=== PATIENT | male | born 1970 | race American Indian/Alaskan Native ===

== ENCOUNTER 2018-06-10 07:47 | Inpatient (IN) | payer OTHER ==
[2018-06-10] MEDS ORDERED: ASPIRIN PO ONE (07:59)
[2018-06-10] MEDS ORDERED: CATAPRES ONE (08:05)
[2018-06-10] MEDS ORDERED: CATAPRES PO ONE (08:14)
[2018-06-10 08:24] LABS: Basophils # (Auto) 0.1 K/mm3 (0.0-0.1); Basophils % (Auto) 0.9 % (0.0-1.8); Eosinophils # (Auto) 0.3 K/mm3 (0.0-0.4); Eosinophils % (Auto) 2.5 % (0.0-4.3); Hematocrit 47.8 % (35.5-45.6); Hemoglobin 16.2 gm/dl (11.8-15.2); Lymphocytes # (Auto) 1.5 K/mm3 (1.2-5.4); Lymphocytes % (Auto) 13.3 % (13.4-35.0); Mean Corpuscular HGB Conc 34 % (32-34); Mean Corpuscular Hemoglobin 32 pg (28-32); Mean Corpuscular Volume 93 fl (84-94); Monocytes # (Auto) 0.5 K/mm3 (0.0-0.8); Monocytes % (Auto) 4.7 % (0.0-7.3); Platelet Count 234 K/mm3 (140-440); Red Blood Count 5.15 M/mm3 (3.65-5.03); Red Cell Distribution Width 14.1 % (13.2-15.2)
[2018-06-10 08:32] LABS: Calcium 9.3 mg/dL (8.4-10.2)
[2018-06-10 08:34] LABS: Alanine Aminotransferase 10 units/L (7-56); Albumin 3.9 g/dL (3.9-5)
[2018-06-10 08:41] LABS: Bilirubin,Direct < 0.2 mg/dL (0-0.2)
[2018-06-10 09:41] LABS: Chol/HDL Ratio 3.48 %
--- NOTE | 2018-06-10 09:43 | Emergency Department Report ---
HPI - General Chief Complaint: Abdominal Pain Time Seen by Provider: 06/10/18 09:27 - HPI HPI: 47-year-old male presents to the emergency department with a complaint of elevated blood pressure, shortness of breath, increased urinary frequency. The patient also says that intermittently he will get a sharp pain in the lower right flank. He denies any fever, chest pain, back pain nausea, vomiting, hematuria, dysuria. The patient does present with extremely elevated blood pressure. He has been out of his medications for at least the past 5 weeks since he lost his medical benefits. Patient says that he was on lisinopril but "it is not working." The shortness of breath worsens with exertion but does not necessarily worsen when lying flat. He denies any tobacco or illicit drug use or abuse. He has not taken anything for her symptoms prior to presentation. No recent travel or sick contacts at home. He does not have a primary care physician. ED Past Medical Hx - Past Medical History Hx Hypertension: Yes Hx Congestive Heart Failure: No Hx Diabetes: Yes Hx Asthma: No Hx COPD: No Hx HIV: No - Surgical History Past Surgical History?: No - Social History Smoking Status: Never Smoker Substance Use Type: None - Medications Home Medications: Home Medications Medication Instructions Recorded Confirmed Last Taken Type Aspirin [Aspirin BABY CHEW TAB] 81 mg PO QDAY #30 tab.chew 08/17/14 10/24/16 Rx Metoprolol [Lopressor TAB] 100 mg PO BID #60 tablet 10/24/16 Unknown Rx amLODIPine [Norvasc] 10 mg PO QDAY #30 tablet 10/24/16 Unknown Rx cloNIDine [Catapres] 0.1 mg PO Q12HR #60 tablet 10/24/16 Unknown Rx ED Review of Systems ROS: Stated complaint: FLANK PAIN Other details as noted in HPI Comment: All other systems reviewed and negative Constitutional: denies: chills, fever Eyes: denies: eye pain, eye discharge, vision change ENT: denies: ear pain, throat pain Respiratory: shortness of breath, SOB with exertion. denies: cough Cardiovascular: denies: chest pain, edema Gastrointestinal: abdominal pain (lower right flank). denies: nausea, vomiting Genitourinary: frequency. denies: dysuria, hematuria Musculoskeletal: denies: back pain, joint swelling, arthralgia Skin: denies: rash, lesions Neurological: denies: headache, weakness, paresthesias Physical Exam - Physical Exam Vital Signs: Vital Signs 06/10/18 06/10/18 06/10/18 07:56 08:00 09:20 Temperature 99.3 F Pulse Rate 114 H Respiratory 16 16 Rate Blood Pressure 234/172 Blood Pressure 231/160 245/185 [Right] O2 Sat by Pulse 99 99 Oximetry Physical Exam: GENERAL: The patient is well-developed well-nourished. HENT: Normocephalic. Atraumatic. Patient has moist mucous membranes. EYES: Extraocular motions are intact. Pupils equal reactive to light bilaterally. NECK: Supple. Trachea is midline. CHEST/LUNGS: Clear to auscultation. There is no respiratory distress noted. HEART/CARDIOVASCULAR: Regular. There is mild tachycardia. There is no murmur. ABDOMEN: Abdomen is soft, nontender. Patient has normal bowel sounds. There is no abdominal distention. SKIN: Skin is warm and dry. NEURO: The patient is awake, alert, and oriented. The patient is cooperative. The patient has no focal neurologic deficits. The patient has normal speech. MUSCULOSKELETAL: There is no tenderness or deformity. There is no limitation range of motion. There is no evidence of acute injury. ED Course Vital Signs 06/10/18 06/10/18 06/10/18 07:56 08:00 09:20 Temperature 99.3 F Pulse Rate 114 H Respiratory 16 16 Rate Blood Pressure 234/172 Blood Pressure 231/160 245/185 [Right] O2 Sat by Pulse 99 99 Oximetry ED Medical Decision Making - Lab Data Result diagrams: 06/10/18 08:07 06/10/18 08:07 - EKG Data -: EKG Interpreted by Me EKG shows normal: sinus rhythm, axis (left axis deviation), intervals (slightly prolonged QTC), QRS complexes (left anterior fascicular block, RVH), ST-T waves Rate: tachycardia (112 bpm) - EKG Data When compared to previous EKG there are: previous EKG unavailable Interpretation: other (sinus tachycardia, left anterior fascicular block, slightly prolonged QTC, RVH) - Radiology Data Radiology results: report reviewed, image reviewed interpreted by me: Chest x-ray shows some pulmonary vascular congestion and mild cardiomegaly. Abdominal x-ray shows some nonobstructive nonspecific bowel gas. EXAM: CT ABDOMEN PELVIS WO CON HISTORY: flank pain, hematuria TECHNIQUE: CT of the abdomen and pelvis was performed without intravenous contrast. Reconstructions were included in the coronal and sagittal planes. PRIORS: None. FINDINGS: Lower thorax: There are small bilateral pleural effusions with adjacent atelectasis. Interlobular septal thickening is seen in the lung bases. Multi chamber cardiac enlargement is seen. Liver: The liver is normal in attenuation. No intrahepatic biliary duct dilation. No focal hepatic lesions. Gallbladder/ biliary system: No cholelithiasis. The common bile duct appears nondilated. Spleen: No splenic lesions are seen. Pancreas: No pancreatic lesions are seen. No pancreatic duct dilation. Kidneys: No renal masses, cysts or hydronephrosis. Bilateral nonobstructing renal calculi are seen. The calculus on the right is present in the inferior pole measuring 1 centimeter. The calculus on the left is present in the inferior pole measuring 1.5 centimeters. Adrenal glands: No adrenal masses. Vasculature: The abdominal aorta is nondilated. Lymph nodes: Prominent sharda hepatis region lymph nodes are seen. Bowel, mesentery, peritoneum: No bowel obstruction. No free fluid or free air. The tip of the appendix is mildly prominent in size measuring up to 7 millimeters. No surrounding inflammation is seen. 6 millimeter appendicolith is seen within the midportion of the appendix. No colonic diverticulosis. No bowel wall thickening. Urinary bladder: No filling defects are seen. Pelvis: The prostate gland is enlarged. Abdominal wall: There is a small fat containing umbilical hernia. Bones: No acute or chronic osseous finding. IMPRESSION: 1. Large bilateral nonobstructing renal calculi. 2. Mildly prominent size of the tip of the appendix without surrounding inflammation, unlikely acute appendicitis. 3. Small bilateral pleural effusions with bilateral pulmonary edema. 4. Multi chamber cardiac enlargement. 5. Prominent sharda hepatis lymph nodes are likely reactive. 6. Mild prostatic hypertrophy. Transcribed By: MG Dictated By: BRITTANY PERKINS MD Electronically Authenticated By: BRITTANY PERKINS MD Signed Date/Time: 06/10/18 0044 - Medical Decision Making Patient presents with shortness of breath, intermittent right lower flank pains and some uncontrolled blood pressure. Patient came in with severely elevated blood pressure with a systolic that reached 250. Patient's labs show acute kidney injury with worsening renal sufficiency into renal failure and his GFR is down to about 30. Patient has a first troponin that is elevated which may be secondary to coronary artery disease, but also may be elevated secondary to his renal insufficiency. BNP is greater than 5000. Chest x-ray does not show any acute process but a CT angiography of the chest was done secondary to a elevated and equivocal d-dimer and while it did not show any pulmonary embolism there are some signs of bilateral basilar pleural effusions. Patient was given a few doses of antihypertensive medication as well as Lasix. The blood pressure has improved but is still quite elevated. For all these reasons mentioned above the patient will be admitted to the hospital for further evaluation and treatment. - Differential Diagnosis CHF, Nephrolithiasis, CAD, [place] Critical Care Time: No Critical care attestation.: If time is entered above; I have spent that time in minutes in the direct care of this critically ill patient, excluding procedure time. ED Disposition Clinical Impression: [place] (acute kidney injury), Accelerated hypertension Renal failure Qualifiers: Renal failure chronicity: acute on chronic Chronic kidney disease stage: unspecified stage Dyspnea Qualifiers: Dyspnea type: shortness of breath Qualified Code(s): R06.02 - Shortness of breath; R06.00 - Dyspnea, unspecified; R06.01 - Orthopnea CHF (congestive heart failure) Qualifiers: Heart failure type: unspecified Heart failure chronicity: unspecified Qualified Code(s): I50.9 - Heart failure, unspecified Disposition: 09 OP ADMIT IP TO THIS HOSP Is pt being admited?: Yes Condition: Fair Instructions: Hypertension (ED) Referrals: PRIMARY CARE, [Primary Care Provider] - 3-5 Days Time of Disposition: 15:28
[2018-06-10] MEDS ORDERED: NORMODYNE IV ONE (10:10)
[2018-06-10 10:34] LABS: Bilirubin,Urine NEG (Negative); Blood,Urine MOD (Negative); Color,Urine Yellow (Yellow); Hyaline Casts,Urine 4 /LPF; Mucus,Urine FEW /HPF; Urobilinogen,Urine < 2.0 mg/dL (<2.0)
[2018-06-10 10:35] LABS: Protein,Urine >500 mg/dL (Negative); RBC,Urine > 182.0 /HPF (0.0-6.0)
[2018-06-10] MEDS ORDERED: DUONEB *Not for PRN Use IH ONE (10:48)
--- NOTE | 2018-06-10 11:48 | Cat Scan Report ---
FINAL REPORT EXAM: CT ABDOMEN PELVIS WO CON HISTORY: flank pain, hematuria TECHNIQUE: CT of the abdomen and pelvis was performed without intravenous contrast. Reconstructions were included in the coronal and sagittal planes. PRIORS: None. FINDINGS: Lower thorax: There are small bilateral pleural effusions with adjacent atelectasis. Interlobular septal thickening is seen in the lung bases. Multi chamber cardiac enlargement is seen. Liver: The liver is normal in attenuation. No intrahepatic biliary duct dilation. No focal hepatic lesions. Gallbladder/ biliary system: No cholelithiasis. The common bile duct appears nondilated. Spleen: No splenic lesions are seen. Pancreas: No pancreatic lesions are seen. No pancreatic duct dilation. Kidneys: No renal masses, cysts or hydronephrosis. Bilateral nonobstructing renal calculi are seen. The calculus on the right is present in the inferior pole measuring 1 centimeter. The calculus on the left is present in the inferior pole measuring 1.5 centimeters. Adrenal glands: No adrenal masses. Vasculature: The abdominal aorta is nondilated. Lymph nodes: Prominent sharda hepatis region lymph nodes are seen. Bowel, mesentery, peritoneum: No bowel obstruction. No free fluid or free air. The tip of the appendix is mildly prominent in size measuring up to 7 millimeters. No surrounding inflammation is seen. 6 millimeter appendicolith is seen within the midportion of the appendix. No colonic diverticulosis. No bowel wall thickening. Urinary bladder: No filling defects are seen. Pelvis: The prostate gland is enlarged. Abdominal wall: There is a small fat containing umbilical hernia. Bones: No acute or chronic osseous finding. IMPRESSION: 1. Large bilateral nonobstructing renal calculi. 2. Mildly prominent size of the tip of the appendix without surrounding inflammation, unlikely acute appendicitis. 3. Small bilateral pleural effusions with bilateral pulmonary edema. 4. Multi chamber cardiac enlargement. 5. Prominent sharda hepatis lymph nodes are likely reactive. 6. Mild prostatic hypertrophy.
--- NOTE | 2018-06-10 12:03 | XRay Report ---
FINAL REPORT EXAM: XR ABD SERIES W CXR 1V HISTORY: CP TECHNIQUE: Frontal chest radiograph; AP upright and supine abdominal radiographs. PRIORS: CT of the abdomen and pelvis from earlier today. FINDINGS: Chest: The cardiomediastinal silhouette is normal. No focal consolidation. No pleural effusion. No pneumothorax. No osseous abnormality. Abdomen: No pneumoperitoneum. No bowel obstruction. No organomegaly or masses. The previously seen bilateral renal calculi are not as well seen on plain radiograph. No acute osseous abnormality. IMPRESSION: No acute intra-abdominal or intra-thoracic abnormality.
[2018-06-10] MEDS ORDERED: LASIX IV ONE (12:04)
--- NOTE | 2018-06-10 13:01 | History and Physical Report ---
History of Present Illness Chief complaint: I cant breathe, and my blood pressure is real high History of present illness: 47 YO Male with HTN, DM, Obesity, Metabolic Syndrome, Medication Noncompliance presents to ED for evaluation. Pt states that he has experienced fatigue, weaknes, and shortness of breath for the past 2 weeks with worsening symptoms over the past 1 week. Pt states that he ran our of all his medication 5 weeks ago. Pt denies compliance with cardiac and diabetic diet restrictions. Pt acknowledges Orthopnea/PND, decreased exercise tolerance. Pt also acknowledges chest discomfort with deep breathing. Pt denies fever, chills, CP, Palpitations , NVD, Syncope, Trauma, Unilateral leg swelling, calf pain, productive cough, BRBPR, unintentional weight loss, prolonged travel/immobility, individual/ family history of DVT/PE, or recent ill contacts. Pt seen and evaluated in ED and found to have CHF, hypertensive emergency, and acute renal failure. Pt admitted to telemetry. Cardiology consulted in ED. Past History Past Medical History: heart failure, hypertension Past Surgical History: No surgical history, Other (reviewed) Social history: single. denies: smoking, alcohol abuse, prescription drug abuse Family history: diabetes, hypertension Medications and Allergies Allergies Allergy/AdvReac Type Severity Reaction Status Date / Time hydralazine [Hydralazine] Allergy Shortness Verified 08/16/14 23:47 of Breath Home Medications Medication Instructions Recorded Confirmed Last Taken Type Aspirin [Aspirin BABY CHEW TAB] 81 mg PO QDAY #30 tab.chew 08/17/14 10/24/16 Rx Metoprolol [Lopressor TAB] 100 mg PO BID #60 tablet 10/24/16 Unknown Rx amLODIPine [Norvasc] 10 mg PO QDAY #30 tablet 10/24/16 Unknown Rx cloNIDine [Catapres] 0.1 mg PO Q12HR #60 tablet 10/24/16 Unknown Rx Review of Systems Constitutional: weight gain, no weight loss, no fever, no chills, no sweats Ears, nose, mouth and throat: no ear pain, no ear discharge, no tinnitis, no decreased hearing, no nose pain, no nasal congestion, no nasal discharge Cardiovascular: shortness of breath, dyspnea on exertion, paroxysmal nocturnal dyspnea, high blood pressure, decreased exercise tolerance, no chest pain, no orthopnea, no palpitations, no rapid/irregular heart beat, no syncope Respiratory: no cough, no cough with sputum, no excessive sputum, no hemoptysis Gastrointestinal: no abdominal pain, no nausea, no vomiting, no diarrhea, no constipation Genitourinary Male: no hematuria, no flank pain, no discharge, no urinary frequency Rectal: no pain, no incontinence, no bleeding Musculoskeletal: no neck stiffness, no neck pain, no shooting arm pain Integumentary: no rash, no pruritis, no redness, no sores, no wounds Neurological: no paralysis, no weakness, no parathesias, no numbness, no tingling, no seizures Psychiatric: no anxiety, no memory loss, no change in sleep habits, no sleep disturbances, no insomnia, no change in appetite Endocrine: no cold intolerance, no heat intolerance, no polyphagia, no excessive thirst, no polydipsia, no polyuria Hematologic/Lymphatic: no easy bruising, no easy bleeding, no lymphadenopathy, no lymphedema Allergic/Immunologic: no urticaria, no allergic rhinitis, no wheezing, no persistent infections, no anaphylaxis, no angioedema Exam - Constitutional Vitals: Temp Pulse Resp BP Pulse Ox 98.6 F 107 H 19 233/153 97 06/10/18 09:55 06/10/18 10:13 06/10/18 10:00 06/10/18 10:13 06/10/18 10:00 General appearance: Present: mild distress - EENT Eyes: Present: PERRL ENT: hearing intact, clear oral mucosa - Neck Neck: Present: supple, normal ROM - Respiratory Respiratory: bilateral: diminished, rhonchi - Cardiovascular Heart Sounds: Present: S1 & S2. Absent: rub, click - Extremities Extremities: pulses symmetrical, No edema Peripheral Pulses: within normal limits - Abdominal General gastrointestinal: Present: soft, non-tender, non-distended, normal bowel sounds Male genitourinary: Present: normal - Integumentary Integumentary: Present: clear, warm, dry - Musculoskeletal Musculoskeletal: gait normal, strength equal bilaterally - Psychiatric Psychiatric: appropriate mood/affect, intact judgment & insight - Neurologic Neurologic: CNII-XII intact, moves all extremities Results - Labs CBC & Chem 7: 06/10/18 08:07 06/10/18 08:07 Labs: Abnormal lab results 07/14/18 07/14/18 07/14/18 Range/Units 08:07 08:07 08:07 WBC 11.5 H (4.5-11.0) K/mm3 RBC 5.15 H (3.65-5.03) M/mm3 Hgb 16.2 H (11.8-15.2) gm/dl Hct 47.8 H (35.5-45.6) % Lymph % (Auto) 13.3 L (13.4-35.0) % Seg Neutrophils % 78.6 H (40.0-70.0) % Seg Neutrophils # 9.0 H (1.8-7.7) K/mm3 D-Dimer (0-234) ng/mlDDU BUN 23 H (9-20) mg/dL Creatinine 2.7 H (0.8-1.5) mg/dL Glucose 170 H (75-100) mg/dL Troponin T 0.063 H (0.00-0.029) ng/mL NT-Pro-B Natriuret Pep 3638 H (0-450) pg/mL Cholesterol 216 H (50-199) mg/dL LDL Cholesterol Direct 150 H (50-130) mg/dL HDL Cholesterol 62 H (40-59) mg/dL 06/10/18 Range/Units 09:45 WBC (4.5-11.0) K/mm3 RBC (3.65-5.03) M/mm3 Hgb (11.8-15.2) gm/dl Hct (35.5-45.6) % Lymph % (Auto) (13.4-35.0) % Seg Neutrophils % (40.0-70.0) % Seg Neutrophils # (1.8-7.7) K/mm3 D-Dimer 472.45 H (0-234) ng/mlDDU BUN (9-20) mg/dL Creatinine (0.8-1.5) mg/dL Glucose (75-100) mg/dL Troponin T (0.00-0.029) ng/mL NT-Pro-B Natriuret Pep (0-450) pg/mL Cholesterol (50-199) mg/dL LDL Cholesterol Direct (50-130) mg/dL HDL Cholesterol (40-59) mg/dL Assessment and Plan - Patient Problems (1) CHF (congestive heart failure) Current Visit: Yes Status: Acute Qualifiers: Heart failure type: systolic Heart failure chronicity: acute Qualified Code(s): I50.21 - Acute systolic (congestive) heart failure Plan to address problem: Admit to telemetry, cardiology consulted, strict I/O, monitor uop q shift, diuresis, afterload reduction, echo, supplemental oxygen, NIPPV as clinically indicated, serial cardiac enzymes, ekg. (2) ARF (acute renal failure) with tubular necrosis Current Visit: Yes Status: Acute Plan to address problem: monitor uop q shift, urine electrolytes. suspect secondary to diabetic nephropathy. (3) Respiratory failure Current Visit: Yes Status: Acute Qualifiers: Chronicity: acute Respiratory failure complication: hypoxia Qualified Code(s): J96.01 - Acute respiratory failure with hypoxia Plan to address problem: supplemental oxygen, nebulizer therapy, NIPPV as clinically indicated, chest x ray, D dimer, VQ scan (4) Hypertensive emergency Current Visit: Yes Status: Acute Plan to address problem: monitor bp q shift, continue prehospital medication, continue medical management. IV hydralazine prn (5) Diabetes mellitus Current Visit: No Status: Chronic Qualifiers: Diabetes mellitus type: type 2 Diabetes mellitus complication status: with unspecified complications Qualified Code(s): E11.8 - Type 2 diabetes mellitus with unspecified complications Plan to address problem: ADA diet, insulin, accu check, HGB A1c (6) DVT prophylaxis Current Visit: Yes Status: Acute Plan to address problem: SCD to ble while in bed.
[2018-06-10] MEDS ORDERED: LOPRESSOR PO ONE (13:02)
[2018-06-10] MEDS ORDERED: SODIUM CHLORIDE FLUSH SYRINGE 10 ML IV PRN (15:04)
[2018-06-10] MEDS ORDERED: TYLENOL PO PRN (15:04)
[2018-06-10] MEDS ORDERED: PROVENTIL IH PRN (15:04)
[2018-06-10] MEDS ORDERED: ZOFRAN IV PRN (15:04)
[2018-06-10] MEDS ORDERED: NITROSTAT SL PRN (15:04)
[2018-06-10] MEDS ORDERED: BABY ASPIRIN PO STA (15:04)
[2018-06-10] MEDS ORDERED: D50W (25GM) Syringe IV PRN (15:09)
[2018-06-10] MEDS ORDERED: APRESOLINE IV PRN (15:28)
[2018-06-10] MEDS: HumaLOG SUB-Q SCH ×2 (17:25→22:55)
[2018-06-10] MEDS: LASIX IV SCH (18:56)
[2018-06-10] MEDS: LOPRESSOR PO SCH (22:25)
[2018-06-10] MEDS: SODIUM CHLORIDE FLUSH SYRINGE 10 ML IV SCH (22:26)
[2018-06-10] MEDS ORDERED: NORVASC PO ONE (23:30)
[2018-06-10] MEDS ORDERED: NITRO-BID 2% TP ONE (23:56)
--- NOTE | 2018-06-11 09:11 | Nuclear Medicine Report ---
FINAL REPORT EXAM: NM LUNG SCAN PERF/VENT HISTORY: SOB, elevated dimer TECHNIQUE: 15.0 mCi Xenon-133 was used for ventilation. 5.0 mCi of technetium 99m MAA was used for perfusion. Multiple planar images were obtained. PRIORS: Chest x-ray June 10, 2018. FINDINGS: Ventilation: Uniform. Perfusion: Small subsegmental perfusion defect is in both upper lobes. IMPRESSION: Based on the PIOPED study, findings represent low probability for PE.
[2018-06-11] MEDS: NORVASC PO SCH ×2 (10:20→10:23)
[2018-06-11] MEDS: LOPRESSOR PO SCH ×3 (10:21→22:38)
[2018-06-11] MEDS: BABY ASPIRIN PO SCH (10:22)
[2018-06-11] MEDS: ZESTRIL PO SCH (10:23)
[2018-06-11] MEDS: SODIUM CHLORIDE FLUSH SYRINGE 10 ML IV SCH ×3 (10:24→22:38)
[2018-06-11] MEDS: LASIX IV SCH ×2 (11:46→20:53)
[2018-06-11] MEDS: HumaLOG SUB-Q SCH ×5 (11:46→22:54)
--- NOTE | 2018-06-11 12:17 | Progress Note ---
Assessment and Plan Assessment and plan: Acute hypoxemic resp failure. Cont. supplemental oxygen, nebulizer therapy, NIPPV as clinically indicated. VQ scan negative for PE. Acute CHF exac. Etiology unkown of diastolic vs systolic. Await Echo. Cards consulted. Cont. afterload reduction, supplemental oxygen, NIPPV as clinically indicated, serial cardiac enzymes and ekg. Imaging reveals Bilateral pleural effusions/pulm edema. F/U serial CXR HTN. Resume anti-hypertensives DM II. Cont accuchecks and SSRI CKD. Consider Nephrology consultation. Check renal US. Pt appears to have a baseline Cr of approx 2.0 based on findings 2016 History Interval history: feels better, less SOB Hospitalist Physical - Constitutional Vitals: Temp Pulse Resp BP Pulse Ox 98.2 F 78 18 157/98 95 06/11/18 04:51 06/11/18 06:00 06/11/18 04:51 06/11/18 04:51 06/11/18 11:52 General appearance: Present: no acute distress - EENT Eyes: Present: PERRL, EOM intact ENT: hearing intact, clear oral mucosa, dentition normal - Neck Neck: Present: supple, normal ROM - Respiratory Respiratory effort: normal Respiratory: bilateral: diminished, rales - Cardiovascular Rhythm: regular Heart Sounds: Present: S1 & S2. Absent: gallop, rub - Extremities Extremities: no ischemia, No edema, Full ROM - Abdominal General gastrointestinal: soft, non-tender, non-distended, normal bowel sounds - Integumentary Integumentary: Present: clear, warm, dry - Neurologic Neurologic: CNII-XII intact, moves all extremities Results - Labs CBC & Chem 7: 06/10/18 08:07 06/10/18 08:07 Labs: Laboratory Last Values WBC 11.5 K/mm3 (4.5-11.0) H 06/10/18 08:07 RBC 5.15 M/mm3 (3.65-5.03) H 06/10/18 08:07 Hgb 16.2 gm/dl (11.8-15.2) H 06/10/18 08:07 Hct 47.8 % (35.5-45.6) H 06/10/18 08:07 MCV 93 fl (84-94) 06/10/18 08:07 MCH 32 pg (28-32) 06/10/18 08:07 MCHC 34 % (32-34) 06/10/18 08:07 RDW 14.1 % (13.2-15.2) 06/10/18 08:07 Plt Count 234 K/mm3 (140-440) 06/10/18 08:07 Lymph % (Auto) 13.3 % (13.4-35.0) L 06/10/18 08:07 Jack % (Auto) 4.7 % (0.0-7.3) 06/10/18 08:07 Eos % (Auto) 2.5 % (0.0-4.3) 06/10/18 08:07 Baso % (Auto) 0.9 % (0.0-1.8) 06/10/18 08:07 Lymph # 1.5 K/mm3 (1.2-5.4) 06/10/18 08:07 Jack # 0.5 K/mm3 (0.0-0.8) 06/10/18 08:07 Eos # 0.3 K/mm3 (0.0-0.4) 06/10/18 08:07 Baso # 0.1 K/mm3 (0.0-0.1) 06/10/18 08:07 Seg Neutrophils % 78.6 % (40.0-70.0) H 06/10/18 08:07 Seg Neutrophils # 9.0 K/mm3 (1.8-7.7) H 06/10/18 08:07 D-Dimer 472.45 ng/mlDDU (0-234) H 06/10/18 09:45 Sodium 138 mmol/L (137-145) 06/10/18 08:07 Potassium 3.8 mmol/L (3.6-5.0) 06/10/18 08:07 Chloride 98.5 mmol/L (98-107) 06/10/18 08:07 Carbon Dioxide 25 mmol/L (22-30) 06/10/18 08:07 Anion Gap 18 mmol/L 06/10/18 08:07 BUN 23 mg/dL (9-20) H 06/10/18 08:07 Creatinine 2.7 mg/dL (0.8-1.5) H 06/10/18 08:07 Estimated GFR 31 ml/min 06/10/18 08:07 BUN/Creatinine Ratio 9 % 06/10/18 08:07 Glucose 170 mg/dL (75-100) H 06/10/18 08:07 POC Glucose 111 (70-105) H 06/11/18 07:18 Hemoglobin A1c 6.3 % (4-6) H 06/10/18 08:07 Calcium 9.3 mg/dL (8.4-10.2) 06/10/18 08:07 Total Bilirubin 0.70 mg/dL (0.1-1.2) 06/10/18 08:07 Direct Bilirubin < 0.2 mg/dL (0-0.2) 06/10/18 08:07 Indirect Bilirubin 0.5 mg/dL 06/10/18 08:07 AST 15 units/L (5-40) 06/10/18 08:07 ALT 10 units/L (7-56) 06/10/18 08:07 Alkaline Phosphatase 59 units/L (35-129) 06/10/18 08:07 Troponin T 0.053 ng/mL (0.00-0.029) H D 06/11/18 09:22 NT-Pro-B Natriuret Pep 3638 pg/mL (0-450) H 06/10/18 08:07 Total Protein 7.1 g/dL (6.3-8.2) 06/10/18 08:07 Albumin 3.9 g/dL (3.9-5) 06/10/18 08:07 Albumin/Globulin Ratio 1.2 % 06/10/18 08:07 Triglycerides 116 mg/dL (2-149) 06/10/18 08:07 Cholesterol 216 mg/dL (50-199) H 06/10/18 08:07 LDL Cholesterol Direct 150 mg/dL (50-130) H 06/10/18 08:07 HDL Cholesterol 62 mg/dL (40-59) H 06/10/18 08:07 Cholesterol/HDL Ratio 3.48 % 06/10/18 08:07 Urine Color Yellow (Yellow) 06/10/18 Unknown Urine Turbidity Cloudy (Clear) 06/10/18 Unknown Urine pH 5.0 (5.0-7.0) 06/10/18 Unknown Ur Specific [place] 1.024 (1.003-1.030) 06/10/18 Unknown Urine Protein >500 mg/dL (Negative) 06/10/18 Unknown Urine Glucose (UA) 150 mg/dL (Negative) 06/10/18 Unknown Urine Ketones Neg mg/dL (Negative) 06/10/18 Unknown Urine Blood Mod (Negative) 06/10/18 Unknown Urine Nitrite Neg (Negative) 06/10/18 Unknown Urine Bilirubin Neg (Negative) 06/10/18 Unknown Urine Urobilinogen < 2.0 mg/dL (<2.0) 06/10/18 Unknown Ur Leukocyte Esterase Neg (Negative) 06/10/18 Unknown Urine WBC (Auto) 5.0 /HPF (0.0-6.0) 06/10/18 Unknown Urine RBC (Auto) > 182.0 /HPF (0.0-6.0) 06/10/18 Unknown U Epithel Cells (Auto) < 1.0 /HPF (0-13.0) 06/10/18 Unknown Hyaline Casts 4 /LPF 06/10/18 Unknown Urine Mucus Few /HPF 06/10/18 Unknown
--- NOTE | 2018-06-11 13:26 | Consultation ---
History of Present Illness Consult date: 06/11/18 Requesting physician: EYAD LAWRENCE Consult reason: congestive heart failure, hypertension History of present illness: 47 YO Male with HTN, DM, Obesity, Metabolic Syndrome, Medication Noncompliance presents to ED for evaluation. Pt states that he has experienced fatigue, weaknes, and shortness of breath for the past 2 weeks with worsening symptoms over the past 1 week. Pt states that he ran our of all his medication 5 weeks ago. Pt denies compliance with cardiac and diabetic diet restrictions. Pt acknowledges Orthopnea/PND, decreased exercise tolerance. Pt also acknowledges chest discomfort with deep breathing. Pt denies fever, chills, CP, Palpitations , NVD, Syncope, Trauma, Unilateral leg swelling, calf pain, productive cough, BRBPR, unintentional weight loss, prolonged travel/immobility, individual/ family history of DVT/PE, or recent ill contacts. Pt seen and evaluated in ED and found to have CHF, hypertensive emergency, and acute renal failure. Patient is a diabetic and has not been monitoring his sugar levels denies any syncope or palpitations Past History Past Medical History: diabetes, heart failure, hypertension, hyperlipidemia Past Surgical History: No surgical history, Other (reviewed) Social history: single. denies: smoking, alcohol abuse, prescription drug abuse Family history: diabetes, hypertension Medications and Allergies Allergies Allergy/AdvReac Type Severity Reaction Status Date / Time hydralazine [Hydralazine] Allergy Shortness Verified 08/16/14 23:47 of Breath Home Medications Medication Instructions Recorded Confirmed Last Taken Type Aspirin [Aspirin BABY CHEW TAB] 81 mg PO QDAY #30 tab.chew 08/17/14 10/24/16 Rx Metoprolol [Lopressor TAB] 100 mg PO BID #60 tablet 10/24/16 Unknown Rx amLODIPine [Norvasc] 10 mg PO QDAY #30 tablet 10/24/16 Unknown Rx cloNIDine [Catapres] 0.1 mg PO Q12HR #60 tablet 10/24/16 Unknown Rx Active Meds: Active Medications Acetaminophen (Tylenol) 650 mg PO Q4H PRN PRN Reason: Pain MILD(1-3)/Fever >100.5/CANO Albuterol (Proventil) 2.5 mg IH Q4HRT PRN PRN Reason: Shortness Of Breath Amlodipine Besylate (Norvasc) 10 mg PO QDAY [facility] Last Admin: 06/11/18 10:23 Dose: 10 mg Aspirin (Baby Aspirin) 81 mg PO QDAY [facility] Last Admin: 06/11/18 10:22 Dose: 81 mg Atorvastatin Calcium (Lipitor) 20 mg PO QHS [facility] Last Admin: 06/10/18 22:26 Dose: 20 mg Dextrose (D50w (25gm) Syringe) 50 ml IV PRN PRN PRN Reason: Hypoglycemia Furosemide (Lasix) 40 mg IV BID@0600,1800 [facility] Last Admin: 06/11/18 11:46 Dose: Not Given Insulin Human Lispro (Humalog) 0 unit SUB-Q ACHS [facility]; Protocol Last Admin: 06/11/18 11:46 Dose: Not Given Lisinopril (Zestril) 10 mg PO QDAY [facility] Last Admin: 06/11/18 10:23 Dose: 10 mg Metoprolol Tartrate (Lopressor) 50 mg PO BID [facility] Last Admin: 06/11/18 10:21 Dose: 50 mg Nitroglycerin (Nitrostat) 0.4 mg SL Q5M PRN PRN Reason: Chest Pain Ondansetron HCl (Zofran) 4 mg IV Q8H PRN PRN Reason: Nausea And Vomiting Sodium Chloride (Sodium Chloride Flush Syringe 10 Ml) 10 ml IV BID [facility] Last Admin: 06/11/18 10:24 Dose: 10 ml Sodium Chloride (Sodium Chloride Flush Syringe 10 Ml) 10 ml IV PRN PRN PRN Reason: LINE FLUSH Sodium Chloride (Sodium Chloride Flush Syringe 10 Ml) 10 ml IV PRN PRN PRN Reason: LINE FLUSH Review of Systems All systems: negative (as per the HPI) Physical Examination Vital Signs Temp Pulse Resp BP Pulse Ox 99.3 F 114 H 16 234/172 99 06/10/18 07:56 06/10/18 07:56 06/10/18 07:56 06/10/18 07:56 06/10/18 07:56 General appearance: no acute distress, well-nourished HEENT: Positive: PERRL, Mucus Membranes Moist Neck: Positive: neck supple, trachea midline Cardiac: Positive: Reg Rate and Rhythm, S1/S2. Negative: Audible Murmur Lungs: Positive: clear to auscultation, Normal Breath Sounds Neuro: Positive: Grossly Intact Abdomen: Positive: Soft, Active Bowel Sounds. Negative: Tender, Distended Male genitourinary: Positive: normal Skin: Positive: Clear Incision: Cardiac Cath Site Musculoskeletal: No Pain, Normal Range of Motion Extremities: Present: normal. Absent: edema Results 06/10/18 08:07 06/10/18 08:07 - Imaging and Cardiology Echo: report reviewed (2015 normal LV function and diastolic dysfunction) EKG interpretations - Telemetry EKG Rhythm: Sinus Rhythm (sinus rhythm and LVH with nonspecific ST-T's with T- wave inversion) Assessment and Plan Acute respiratory failure Acute on chronic diastolic or systolic heart failure Acute and chronic renal insufficiency Noncompliance Non-ST elevation IA type II Diabetes Obesity Recommend routine starting BP medications patient had adverse reaction to hydralazine will use clonidine Lopressor and amlodipine hesitant for nathan/arb in view of renal sufficiency. Echo is pending and stress test in a.m.
[2018-06-11] MEDS: NORMODYNE IV PRN (15:17)
--- NOTE | 2018-06-11 17:43 | Ultrasound Report ---
FINAL REPORT EXAM: US RENAL BILAT HISTORY: cd TECHNIQUE: Grayscale and color doppler ultrasound imaging of the kidneys and urinary bladder was performed. PRIORS: CT of the abdomen and pelvis from 06/10/2018. FINDINGS: Kidneys: The kidneys are normal in echogenicity without urinary tract dilation, mass, or cyst. There is an echogenic focus with posterior shadowing in the inferior pole of the right kidney measuring 1.1 centimeters. A similar appearing echogenic focus with posterior shadowing is seen in the inferior pole of the left kidney measuring 1.3 centimeters. The right kidney measures 10.0 x 4.3 x 4.5 centimeters. The left kidney measures 10.7 x 4.4 x 3.9 centimeters. No renal cortical thinning. Urinary bladder: No wall thickening or internal debris. IMPRESSION: 1. Bilateral nonobstructing renal calculi. 2. Normal urinary bladder.
[2018-06-11] MEDS ORDERED: NORVASC PO ONE (22:43)
[2018-06-12 06:38] LABS: Basophils # (Auto) 0.1 K/mm3 (0.0-0.1); Basophils % (Auto) 0.8 % (0.0-1.8); Eosinophils # (Auto) 0.4 K/mm3 (0.0-0.4); Eosinophils % (Auto) 3.3 % (0.0-4.3); Hematocrit 47.5 % (35.5-45.6); Hemoglobin 16.1 gm/dl (11.8-15.2); Lymphocytes # (Auto) 1.9 K/mm3 (1.2-5.4); Lymphocytes % (Auto) 16.3 % (13.4-35.0); Mean Corpuscular HGB Conc 34 % (32-34); Mean Corpuscular Hemoglobin 32 pg (28-32); Mean Corpuscular Volume 93 fl (84-94); Monocytes # (Auto) 0.9 K/mm3 (0.0-0.8); Monocytes % (Auto) 7.7 % (0.0-7.3); Platelet Count 235 K/mm3 (140-440); Red Cell Distribution Width 14.1 % (13.2-15.2)
[2018-06-12 07:04] LABS: Albumin 3.6 g/dL (3.9-5); Calcium 9.1 mg/dL (8.4-10.2)
[2018-06-12] MEDS: HumaLOG SUB-Q SCH ×3 (08:56→22:50)
[2018-06-12] MEDS: ZESTRIL PO SCH (10:51)
[2018-06-12] MEDS: LOPRESSOR PO SCH ×2 (10:51→22:50)
[2018-06-12] MEDS: BABY ASPIRIN PO SCH (10:52)
[2018-06-12] MEDS: NORVASC PO SCH (10:52)
[2018-06-12] MEDS: LASIX IV SCH (10:56)
--- NOTE | 2018-06-12 11:03 | Progress Note ---
Assessment and Plan Assessment and plan: Acute hypoxemic resp failure. Cont. supplemental oxygen, nebulizer therapy, NIPPV as clinically indicated. VQ scan negative for PE. Acute CHF exac. Etiology unkown of diastolic vs systolic. Await Echo. Cards consulted. Cont. afterload reduction, supplemental oxygen, NIPPV as clinically indicated, serial cardiac enzymes and ekg. Imaging reveals Bilateral pleural effusions/pulm edema. F/U serial CXR. Stress thallium per Cardiology today. HTN. Patient had adverse reaction to hydralazine will use clonidine Lopressor and amlodipine hesitant for nathan/arb in view of renal sufficiency. Therefore d/ c lisinopril. DM II. Cont accuchecks and SSRI CKD. Consider Nephrology consultation. Renal US reveals bilateral non obstructing renal calculi o/w nl. Pt appears to have a baseline Cr of approx 2.0 based on findings 2016 History Interval history: feels better, less SOB Hospitalist Physical - Constitutional Vitals: Temp Pulse Resp BP Pulse Ox 98.3 F 75 18 149/102 96 06/12/18 09:26 06/12/18 09:26 06/12/18 09:26 06/12/18 09:26 06/12/18 09:26 General appearance: Present: no acute distress, well-nourished - EENT Eyes: Present: PERRL, EOM intact ENT: hearing intact, clear oral mucosa, dentition normal - Neck Neck: Present: supple, normal ROM - Respiratory Respiratory effort: normal Respiratory: bilateral: CTA - Cardiovascular Rhythm: regular Heart Sounds: Present: S1 & S2. Absent: gallop, rub - Extremities Extremities: no ischemia, No edema, Full ROM - Abdominal General gastrointestinal: soft, non-tender, non-distended, normal bowel sounds - Integumentary Integumentary: Present: clear, warm, dry - Neurologic Neurologic: CNII-XII intact, moves all extremities Results - Labs CBC & Chem 7: 06/12/18 06:10 06/12/18 06:10 Labs: Laboratory Last Values WBC 11.3 K/mm3 (4.5-11.0) H 06/12/18 06:10 RBC 5.10 M/mm3 (3.65-5.03) H 06/12/18 06:10 Hgb 16.1 gm/dl (11.8-15.2) H 06/12/18 06:10 Hct 47.5 % (35.5-45.6) H 06/12/18 06:10 MCV 93 fl (84-94) 06/12/18 06:10 MCH 32 pg (28-32) 06/12/18 06:10 MCHC 34 % (32-34) 06/12/18 06:10 RDW 14.1 % (13.2-15.2) 06/12/18 06:10 Plt Count 235 K/mm3 (140-440) 06/12/18 06:10 Lymph % (Auto) 16.3 % (13.4-35.0) 06/12/18 06:10 [place] % (Auto) 7.7 % (0.0-7.3) H 06/12/18 06:10 Eos % (Auto) 3.3 % (0.0-4.3) 06/12/18 06:10 Baso % (Auto) 0.8 % (0.0-1.8) 06/12/18 06:10 Lymph # 1.9 K/mm3 (1.2-5.4) 06/12/18 06:10 [place] # 0.9 K/mm3 (0.0-0.8) H 06/12/18 06:10 Eos # 0.4 K/mm3 (0.0-0.4) 06/12/18 06:10 Baso # 0.1 K/mm3 (0.0-0.1) 06/12/18 06:10 Seg Neutrophils % 71.9 % (40.0-70.0) H 06/12/18 06:10 Seg Neutrophils # 8.2 K/mm3 (1.8-7.7) H 06/12/18 06:10 D-Dimer 472.45 ng/mlDDU (0-234) H 06/10/18 09:45 Sodium 143 mmol/L (137-145) 06/12/18 06:10 Potassium 3.6 mmol/L (3.6-5.0) 06/12/18 06:10 Chloride 100.0 mmol/L (98-107) 06/12/18 06:10 Carbon Dioxide 27 mmol/L (22-30) 06/12/18 06:10 Anion Gap 20 mmol/L 06/12/18 06:10 BUN 24 mg/dL (9-20) H 06/12/18 06:10 Creatinine 2.7 mg/dL (0.8-1.5) H 06/12/18 06:10 Estimated GFR 31 ml/min 06/12/18 06:10 BUN/Creatinine Ratio 9 % 06/12/18 06:10 Glucose 127 mg/dL (75-100) H 06/12/18 06:10 POC Glucose 119 (70-105) H 06/12/18 08:46 Hemoglobin A1c 6.3 % (4-6) H 06/10/18 08:07 Calcium 9.1 mg/dL (8.4-10.2) 06/12/18 06:10 Total Bilirubin 0.70 mg/dL (0.1-1.2) 06/12/18 06:10 Direct Bilirubin < 0.2 mg/dL (0-0.2) 06/10/18 08:07 Indirect Bilirubin 0.5 mg/dL 06/10/18 08:07 AST 12 units/L (5-40) 06/12/18 06:10 ALT 8 units/L (7-56) 06/12/18 06:10 Alkaline Phosphatase 57 units/L (35-129) 06/12/18 06:10 Troponin T 0.053 ng/mL (0.00-0.029) H D 06/11/18 09:22 NT-Pro-B Natriuret Pep 3638 pg/mL (0-450) H 06/10/18 08:07 Total Protein 7.3 g/dL (6.3-8.2) 06/12/18 06:10 Albumin 3.6 g/dL (3.9-5) L 06/12/18 06:10 Albumin/Globulin Ratio 1.0 % 06/12/18 06:10 Triglycerides 116 mg/dL (2-149) 06/10/18 08:07 Cholesterol 216 mg/dL (50-199) H 06/10/18 08:07 LDL Cholesterol Direct 150 mg/dL (50-130) H 06/10/18 08:07 HDL Cholesterol 62 mg/dL (40-59) H 06/10/18 08:07 Cholesterol/HDL Ratio 3.48 % 06/10/18 08:07 Urine Color Yellow (Yellow) 06/10/18 Unknown Urine Turbidity Cloudy (Clear) 06/10/18 Unknown Urine pH 5.0 (5.0-7.0) 06/10/18 Unknown Ur Specific [place] 1.024 (1.003-1.030) 06/10/18 Unknown Urine Protein >500 mg/dL (Negative) 06/10/18 Unknown Urine Glucose (UA) 150 mg/dL (Negative) 06/10/18 Unknown Urine Ketones Neg mg/dL (Negative) 06/10/18 Unknown Urine Blood Mod (Negative) 06/10/18 Unknown Urine Nitrite Neg (Negative) 06/10/18 Unknown Urine Bilirubin Neg (Negative) 06/10/18 Unknown Urine Urobilinogen < 2.0 mg/dL (<2.0) 06/10/18 Unknown Ur Leukocyte Esterase Neg (Negative) 06/10/18 Unknown Urine WBC (Auto) 5.0 /HPF (0.0-6.0) 06/10/18 Unknown Urine RBC (Auto) > 182.0 /HPF (0.0-6.0) 06/10/18 Unknown U Epithel Cells (Auto) < 1.0 /HPF (0-13.0) 06/10/18 Unknown Hyaline Casts 4 /LPF 06/10/18 Unknown Urine Mucus Few /HPF 06/10/18 Unknown
--- NOTE | 2018-06-12 12:00 | Progress Note ---
Assessment and Plan Assessment: Acute on chronic heart failure Acute on chronic renal insufficiency HTN Noncompliance Non-ST elevation IN type II Diabetes Obesity Plan: Await echo. Plan for lexiscan MPI stress test in AM. NPO after MN. No ACEI/ARB in setting of renal insufficiency. Decrease lasix to daily dosing and repeat BMP in AM. Consider nephrology consultation per primary. The patient has been seen in conjunction with Dr. Kentrell Werner who agrees with the assessment and plan of care. Subjective Date of service: 06/12/18 Principal diagnosis: HF; HTN Interval history: pt resting comfortably in bed, states SOB improving. s/p echo this AM. Objective Last Vital Signs Temp 98.3 F 06/12/18 09:26 Pulse 75 06/12/18 09:26 Resp 18 06/12/18 09:26 BP 149/102 06/12/18 09:26 Pulse Ox 96 06/12/18 09:26 - Physical Examination General: No Apparent Distress HEENT: Positive: PERRL, Mucus Membranes Moist Neck: Positive: neck supple, trachea midline Cardiac: Positive: Reg Rate and Rhythm, S1/S2 Lungs: Positive: clear to auscultation Neuro: Positive: Grossly Intact Abdomen: Positive: Soft, Active Bowel Sounds. Negative: Tender, Distended Skin: Positive: Clear Incision: Cardiac Cath Site Musculoskeletal: No Pain, Normal Range of Motion Extremities: Present: normal. Absent: edema - Labs and Meds Cardiac Enzymes 06/12/18 Range/Units 06:10 AST 12 (5-40) units/L CBC 06/12/18 Range/Units 06:10 WBC 11.3 H (4.5-11.0) K/mm3 RBC 5.10 H (3.65-5.03) M/mm3 Hgb 16.1 H (11.8-15.2) gm/dl Hct 47.5 H (35.5-45.6) % Plt Count 235 (140-440) K/mm3 Lymph # 1.9 (1.2-5.4) K/mm3 [place] # 0.9 H (0.0-0.8) K/mm3 Eos # 0.4 (0.0-0.4) K/mm3 Baso # 0.1 (0.0-0.1) K/mm3 Comprehensive Metabolic Panel 06/12/18 Range/Units 06:10 Sodium 143 (137-145) mmol/L Potassium 3.6 (3.6-5.0) mmol/L Chloride 100.0 (98-107) mmol/L Carbon Dioxide 27 (22-30) mmol/L BUN 24 H (9-20) mg/dL Creatinine 2.7 H (0.8-1.5) mg/dL Glucose 127 H (75-100) mg/dL Calcium 9.1 (8.4-10.2) mg/dL AST 12 (5-40) units/L ALT 8 (7-56) units/L Alkaline Phosphatase 57 (35-129) units/L Total Protein 7.3 (6.3-8.2) g/dL Albumin 3.6 L (3.9-5) g/dL - Imaging and Cardiology Echo: report reviewed (2016 normal LV function and diastolic dysfunction) - Telemetry EKG Rhythm: Sinus Rhythm
[2018-06-12] MEDS: CATAPRES PO SCH ×2 (18:42→22:50)
[2018-06-12] MEDS: SODIUM CHLORIDE FLUSH SYRINGE 10 ML IV SCH (22:50)
[2018-06-13 08:03] LABS: Calcium 9.8 mg/dL (8.4-10.2)
[2018-06-13] MEDS: CATAPRES PO SCH ×3 (08:43→22:50)
[2018-06-13] MEDS: NORVASC PO SCH ×2 (08:43→10:47)
[2018-06-13] MEDS: LOPRESSOR PO SCH ×3 (08:43→22:50)
[2018-06-13] MEDS ORDERED: LEXISCAN IV ONE ×2 (09:50→09:53)
[2018-06-13] MEDS ORDERED: LASIX IV SCH (10:00)
--- NOTE | 2018-06-13 12:26 | Treadmill Report ---
NUCLEAR PERFUSION SCAN REFERRING PHYSICIAN: Matias Luna MD PROTOCOL: The patient was brought to the stress lab in a postoperative state, given 10 mCi of technetium 99m at rest. The patient underwent rest imaging. The patient underwent Lexiscan stress test. At peak stress, the patient was given 26 mCi of technetium 99m. Shortly thereafter, the patient underwent stress imaging. Raw imaging reveals mild GI artifact and mild motion artifacts. SPECT imaging examined carefully in horizontal long axis, vertical long axis, short axis views. Grossly, there is normal homogenous uptake of radioisotope in all reported segments. No evidence of a significant fixed or reversible perfusion d defect suggestive of prior infarction or ischemia. Gated wall motion reveals normal systolic thickening, calculated ejection fraction of 18%. There is severe global left ventricular hypokinesis. CONCLUSIONS: Abnormal nuclear perfusion scan with severe global left ventricular hypokinesis with a calculated ejection fraction of 18%. No evidence of active ischemia or prior infarction. Clinical correlation suggested. JOB# [id number] SAYDA/INDER
--- NOTE | 2018-06-13 12:29 | Progress Note ---
Assessment and Plan Assessment: Acute on chronic heart failure Acute on chronic renal insufficiency HTN Noncompliance Non-ST elevation NE type II Diabetes Obesity Plan: S/p lexiscan MPI stress test this AM was negative for ischemia, EF 18%. Await echo. D/c diuretics given upwards trend in renal indices. Await nephrology consultation. The patient has been seen in conjunction with Dr. Kentrell Werner who agrees with the assessment and plan of care. Subjective Date of service: 06/13/18 Principal diagnosis: HF; HTN Interval history: pt for stress test today. no current cardiac complaints. Objective Last Vital Signs Temp 98.3 F 06/13/18 07:46 Pulse 82 06/13/18 10:40 Resp 16 06/13/18 07:46 BP 135/94 06/13/18 10:40 Pulse Ox 98 06/13/18 08:53 - Physical Examination General: No Apparent Distress HEENT: Positive: PERRL, Mucus Membranes Moist Neck: Positive: neck supple, trachea midline Cardiac: Positive: Reg Rate and Rhythm, S1/S2 Lungs: Positive: Decreased Breath Sounds Neuro: Positive: Grossly Intact Abdomen: Positive: Soft, Active Bowel Sounds. Negative: Tender, Distended Skin: Positive: Clear Incision: Cardiac Cath Site Musculoskeletal: No Pain, Normal Range of Motion Extremities: Present: normal. Absent: edema - Labs and Meds Comprehensive Metabolic Panel 06/13/18 Range/Units 06:36 Sodium 139 (137-145) mmol/L Potassium 4.0 (3.6-5.0) mmol/L Chloride 97.5 L (98-107) mmol/L Carbon Dioxide 28 (22-30) mmol/L BUN 30 H (9-20) mg/dL Creatinine 3.0 H (0.8-1.5) mg/dL Glucose 132 H (75-100) mg/dL Calcium 9.8 (8.4-10.2) mg/dL - Imaging and Cardiology Echo: report reviewed (2015 normal LV function and diastolic dysfunction)
[2018-06-13] MEDS: BABY ASPIRIN PO SCH (13:46)
--- NOTE | 2018-06-13 14:48 | Consultation ---
History of Present Illness - Reason for Consult Consult date: 06/13/18 acute renal failure, chronic renal failure - History of Present Illness patient with h/o DM, HTN and CKD was admitted for worsening SOB, he was started on lasix and did improve his sx mildly, work up during this hospitalization was negative for PE, he also had stress this Am which was negative but EF was 18%, he denies not follow with with any doctor as an outpatient he did not have any ab work done recently. denies NSAIDs Past History Past Medical History: diabetes, heart failure, hypertension, hyperlipidemia Past Surgical History: No surgical history, Other (reviewed) Social history: single. denies: smoking, alcohol abuse, prescription drug abuse Family history: diabetes, hypertension Medications and Allergies Allergies Allergy/AdvReac Type Severity Reaction Status Date / Time hydralazine [Hydralazine] Allergy Shortness Verified 08/16/14 23:47 of Breath Home Medications Medication Instructions Recorded Confirmed Last Taken Type Aspirin [Aspirin BABY CHEW TAB] 81 mg PO QDAY #30 tab.chew 08/17/14 06/12/18 Rx Metoprolol [Lopressor TAB] 100 mg PO BID #60 tablet 10/24/16 06/12/18 Unknown Rx amLODIPine [Norvasc] 10 mg PO QDAY #30 tablet 10/24/16 06/12/18 Unknown Rx cloNIDine [Catapres] 0.1 mg PO Q12HR #60 tablet 10/24/16 06/12/18 Unknown Rx Active Meds: Active Medications Acetaminophen (Tylenol) 650 mg PO Q4H PRN PRN Reason: Pain MILD(1-3)/Fever >100.5/CANO Albuterol (Proventil) 2.5 mg IH Q4HRT PRN PRN Reason: Shortness Of Breath Amlodipine Besylate (Norvasc) 10 mg PO QDAY [facility] Last Admin: 06/13/18 08:43 Dose: 10 mg Aspirin (Baby Aspirin) 81 mg PO QDAY [facility] Last Admin: 06/12/18 10:52 Dose: 81 mg Atorvastatin Calcium (Lipitor) 20 mg PO QHS [facility] Last Admin: 06/12/18 22:50 Dose: 20 mg Clonidine HCl (Catapres) 0.1 mg PO Q12HR [facility] Last Admin: 06/13/18 08:43 Dose: 0.1 mg Dextrose (D50w (25gm) Syringe) 50 ml IV PRN PRN PRN Reason: Hypoglycemia Insulin Human Lispro (Humalog) 0 unit SUB-Q ACHS [facility]; Protocol Last Admin: 06/12/18 22:50 Dose: Not Given Labetalol HCl (Normodyne) 20 mg IV Q6H PRN PRN Reason: Hypertension Last Admin: 06/11/18 15:17 Dose: 20 mg Metoprolol Tartrate (Lopressor) 50 mg PO BID [facility] Last Admin: 06/13/18 08:43 Dose: 50 mg Nitroglycerin (Nitrostat) 0.4 mg SL Q5M PRN PRN Reason: Chest Pain Ondansetron HCl (Zofran) 4 mg IV Q8H PRN PRN Reason: Nausea And Vomiting Sodium Chloride (Sodium Chloride Flush Syringe 10 Ml) 10 ml IV BID [facility] Last Admin: 06/12/18 22:50 Dose: 10 ml Sodium Chloride (Sodium Chloride Flush Syringe 10 Ml) 10 ml IV PRN PRN PRN Reason: LINE FLUSH Sodium Chloride (Sodium Chloride Flush Syringe 10 Ml) 10 ml IV PRN PRN PRN Reason: LINE FLUSH Review of Systems All systems: negative (SOB) Exam - Vital Signs Vital signs: Vital Signs Temp Pulse Resp BP Pulse Ox 99.3 F 114 H 16 234/172 99 06/10/18 07:56 06/10/18 07:56 06/10/18 07:56 06/10/18 07:56 06/10/18 07:56 - General Appearance General appearance: well-developed, well-nourished, appears stated age EENT: ATNC, PERRL, mucous membranes moist Neck: Present: neck supple Respiratory: Clear to Ascultation Heart: regular, S1S2 Gastrointestinal: Present: normoactive bowel sounds. Absent: tenderness, distended Integumentary: no rash, warm and dry Neurologic: no focal deficit, no asterixis, alert and oriented x3 Musculoskeletal: Present: other (trace pitting edema in BLE) Psychiatric: mood/affect appropriate, cooperative Results - Lab Results 06/12/18 06:10 06/13/18 06:36 Most recent lab results Calcium 9.8 mg/dL (8.4-10.2) 06/13/18 06:36 Assessment and Plan acute on chronic kidney failure - possoble progression of CKD due to DM and HTN - will check urine lytes and protein - renal US negative for hydronephrosis - strict I&O - daily weight CHF exacerbation - EF 18% - negative MPI - can use lasix as needed HTN - will adjust meds as needed DM type II - per primary team please call with questions Barney del angel MD [phone]
--- NOTE | 2018-06-13 16:34 | Progress Note ---
Assessment and Plan Assessment and plan: Acute hypoxemic resp failure likely due to CHF, currently resolved Acute CHF exac - Systolic ejection fraction of 18% on stress test - Awaiting echo - Patient is currently euvolemic, Lasix discontinued HTN. Patient had adverse reaction to hydralazine will use clonidine Lopressor and amlodipine hesitant for nathan/arb in view of renal sufficiency. Therefore d/ c lisinopril. DM II. Cont accuchecks and SSI Acute on chronic kidney disease- creatinine increased from 2.7-3.0 today, Lasix discontinued, patient is euvolemic, discussed with nephrology and is okay with Lasix if needed. DVT prophylaxis - On heparin Disposition - Per cardiology. History Interval history: Patient was seen and evaluated, patient was breathing comfortably on room air, no leg swelling. Hospitalist Physical - Physical exam Narrative exam: Not in cardiopulmonary distress. The patient is obese. Vital signs as documented. Head exam is unremarkable. No scleral icterus . Neck is without jugular venous distension, thyromegaly, or carotid bruits. Lungs are clear to auscultation. Cardiac exam reveals regular rate and Rhythm. First and second heart sounds normal. No murmurs, rubs or gallops. Abdominal exam reveals normal bowel sounds, no masses, no organomegaly and no aortic enlargement. Extremities are nonedematous and both femoral and pedal pulses are normal. 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 No focal weakness. - Constitutional Vitals: Temp Pulse Resp BP Pulse Ox 98.3 F 82 16 135/94 98 06/13/18 07:46 06/13/18 10:40 06/13/18 07:46 06/13/18 10:40 06/13/18 08:53 General appearance: Present: no acute distress, well-nourished Results - Labs CBC & Chem 7: 06/12/18 06:10 06/13/18 06:36 Labs: Laboratory Last Values WBC 11.3 K/mm3 (4.5-11.0) H 06/12/18 06:10 RBC 5.10 M/mm3 (3.65-5.03) H 06/12/18 06:10 Hgb 16.1 gm/dl (11.8-15.2) H 06/12/18 06:10 Hct 47.5 % (35.5-45.6) H 06/12/18 06:10 MCV 93 fl (84-94) 06/12/18 06:10 MCH 32 pg (28-32) 06/12/18 06:10 MCHC 34 % (32-34) 06/12/18 06:10 RDW 14.1 % (13.2-15.2) 06/12/18 06:10 Plt Count 235 K/mm3 (140-440) 06/12/18 06:10 Lymph % (Auto) 16.3 % (13.4-35.0) 06/12/18 06:10 [place] % (Auto) 7.7 % (0.0-7.3) H 06/12/18 06:10 Eos % (Auto) 3.3 % (0.0-4.3) 06/12/18 06:10 Baso % (Auto) 0.8 % (0.0-1.8) 06/12/18 06:10 Lymph # 1.9 K/mm3 (1.2-5.4) 06/12/18 06:10 [place] # 0.9 K/mm3 (0.0-0.8) H 06/12/18 06:10 Eos # 0.4 K/mm3 (0.0-0.4) 06/12/18 06:10 Baso # 0.1 K/mm3 (0.0-0.1) 06/12/18 06:10 Seg Neutrophils % 71.9 % (40.0-70.0) H 06/12/18 06:10 Seg Neutrophils # 8.2 K/mm3 (1.8-7.7) H 06/12/18 06:10 D-Dimer 472.45 ng/mlDDU (0-234) H 06/10/18 09:45 Sodium 139 mmol/L (137-145) 06/13/18 06:36 Potassium 4.0 mmol/L (3.6-5.0) 06/13/18 06:36 Chloride 97.5 mmol/L (98-107) L 06/13/18 06:36 Carbon Dioxide 28 mmol/L (22-30) 06/13/18 06:36 Anion Gap 18 mmol/L 06/13/18 06:36 BUN 30 mg/dL (9-20) H 06/13/18 06:36 Creatinine 3.0 mg/dL (0.8-1.5) H 06/13/18 06:36 Estimated GFR 28 ml/min 06/13/18 06:36 BUN/Creatinine Ratio 10 % 06/13/18 06:36 Glucose 132 mg/dL (75-100) H 06/13/18 06:36 POC Glucose 102 (70-105) 06/13/18 11:44 Hemoglobin A1c 6.3 % (4-6) H 06/10/18 08:07 Calcium 9.8 mg/dL (8.4-10.2) 06/13/18 06:36 Total Bilirubin 0.70 mg/dL (0.1-1.2) 06/12/18 06:10 Direct Bilirubin < 0.2 mg/dL (0-0.2) 06/10/18 08:07 Indirect Bilirubin 0.5 mg/dL 06/10/18 08:07 AST 12 units/L (5-40) 06/12/18 06:10 ALT 8 units/L (7-56) 06/12/18 06:10 Alkaline Phosphatase 57 units/L (35-129) 06/12/18 06:10 Troponin T 0.053 ng/mL (0.00-0.029) H D 06/11/18 09:22 NT-Pro-B Natriuret Pep 3638 pg/mL (0-450) H 06/10/18 08:07 Total Protein 7.3 g/dL (6.3-8.2) 06/12/18 06:10 Albumin 3.6 g/dL (3.9-5) L 06/12/18 06:10 Albumin/Globulin Ratio 1.0 % 06/12/18 06:10 Triglycerides 116 mg/dL (2-149) 06/10/18 08:07 Cholesterol 216 mg/dL (50-199) H 06/10/18 08:07 LDL Cholesterol Direct 150 mg/dL (50-130) H 06/10/18 08:07 HDL Cholesterol 62 mg/dL (40-59) H 06/10/18 08:07 Cholesterol/HDL Ratio 3.48 % 06/10/18 08:07 Urine Color Yellow (Yellow) 06/10/18 Unknown Urine Turbidity Cloudy (Clear) 06/10/18 Unknown Urine pH 5.0 (5.0-7.0) 06/10/18 Unknown Ur Specific [place] 1.024 (1.003-1.030) 06/10/18 Unknown Urine Protein >500 mg/dL (Negative) 06/10/18 Unknown Urine Glucose (UA) 150 mg/dL (Negative) 06/10/18 Unknown Urine Ketones Neg mg/dL (Negative) 06/10/18 Unknown Urine Blood Mod (Negative) 06/10/18 Unknown Urine Nitrite Neg (Negative) 06/10/18 Unknown Urine Bilirubin Neg (Negative) 06/10/18 Unknown Urine Urobilinogen < 2.0 mg/dL (<2.0) 06/10/18 Unknown Ur Leukocyte Esterase Neg (Negative) 06/10/18 Unknown Urine WBC (Auto) 5.0 /HPF (0.0-6.0) 06/10/18 Unknown Urine RBC (Auto) > 182.0 /HPF (0.0-6.0) 06/10/18 Unknown U Epithel Cells (Auto) < 1.0 /HPF (0-13.0) 06/10/18 Unknown Hyaline Casts 4 /LPF 06/10/18 Unknown Urine Mucus Few /HPF 06/10/18 Unknown
[2018-06-13] MEDS: HumaLOG SUB-Q SCH (22:50)
[2018-06-13] MEDS: SODIUM CHLORIDE FLUSH SYRINGE 10 ML IV SCH (22:50)
[2018-06-13] MEDS: HEPARIN SUB-Q SCH (22:50)
[2018-06-14] MEDS: NORMODYNE IV PRN (06:28)
[2018-06-14 07:30] LABS: Basophils # (Auto) 0.1 K/mm3 (0.0-0.1); Basophils % (Auto) 1.1 % (0.0-1.8); Eosinophils # (Auto) 0.3 K/mm3 (0.0-0.4); Eosinophils % (Auto) 3.5 % (0.0-4.3); Hematocrit 48.7 % (35.5-45.6); Hemoglobin 16.5 gm/dl (11.8-15.2); Lymphocytes % (Auto) 20.1 % (13.4-35.0); Mean Corpuscular HGB Conc 34 % (32-34); Mean Corpuscular Hemoglobin 31 pg (28-32); Mean Corpuscular Volume 93 fl (84-94); Monocytes # (Auto) 0.8 K/mm3 (0.0-0.8); Monocytes % (Auto) 8.2 % (0.0-7.3); Platelet Count 246 K/mm3 (140-440); Red Blood Count 5.24 M/mm3 (3.65-5.03)
[2018-06-14] MEDS: HumaLOG SUB-Q SCH ×4 (09:35→22:19)
[2018-06-14] MEDS ORDERED: CATAPRES PO SCH ×2 (10:00)
[2018-06-14] MEDS: HEPARIN SUB-Q SCH ×2 (10:43→22:17)
[2018-06-14] MEDS: BABY ASPIRIN PO SCH (10:44)
[2018-06-14] MEDS: LOPRESSOR PO SCH ×4 (10:44→22:24)
[2018-06-14] MEDS: NORVASC PO SCH (10:45)
[2018-06-14] MEDS: SODIUM CHLORIDE FLUSH SYRINGE 10 ML IV SCH ×4 (10:45→22:19)
--- NOTE | 2018-06-14 11:01 | Progress Note ---
Assessment and Plan Acute on Chronic Kidney Disease: -Renal function reviewed. Serum creatinine 2.8 today from 3.0 yesterday - Likely has CKD due to DM and HTN - Urine protein > 500 - Will obtain SPEP, AMAYA, Anca, Complements, anti-GBM, HIV, Hepatitis panel - Renal US reviewed- Bilateral nonobstructing renal calculi - Strict I&O monitoring - Obtain daily weights -Continue to monitor renal function closely CHF exacerbation - LVEF 18% - Negative MPI - Lasix as needed HTN - Blood pressures are stable - Adjust meds as needed DM type II - As per primary team Subjective Date of service: 06/14/18 Principal diagnosis: HF; HTN Interval history: Patient seen sitting up in chair. Reviewed renal labs. Family at bedside. Objective - Vital Signs Vital signs: Vital Signs - 12hr 06/14/18 06/14/18 06/14/18 00:31 03:35 03:45 Temperature 98.0 F 98.1 F 98.2 F Pulse Rate 82 73 60 Respiratory 18 16 18 Rate Blood Pressure 162/122 148/102 189/78 O2 Sat by Pulse 95 92 92 Oximetry 06/14/18 06/14/18 06/14/18 06:28 08:15 10:44 Temperature 98.6 F Pulse Rate 60 78 78 Respiratory 20 Rate Blood Pressure 189/78 146/96 146/96 O2 Sat by Pulse 95 Oximetry 06/14/18 10:45 Temperature Pulse Rate 78 Respiratory Rate Blood Pressure 146/96 O2 Sat by Pulse Oximetry - General Appearance General appearance: well-developed, appears stated age EENT: ATNC, PERRL, hearing intact, vision intact Neck: no JVD, supple Respiratory: Present: Clear to Ascultation Cardiology: regular, S1S2 Gastrointestinal: normoactive bowel sounds Integumentary: no rash, warm and dry Neurologic: alert and oriented x3 Musculoskeletal: other (trace edema) Psychiatric: cooperative - Lab 06/14/18 07:05 06/14/18 07:05 Most recent lab results Calcium 9.0 mg/dL (8.4-10.2) 06/14/18 07:05 Phosphorus 2.90 mg/dL (2.5-4.5) 06/14/18 07:05
--- NOTE | 2018-06-14 13:07 | Progress Note ---
Assessment and Plan Assessment: Acute on chronic systolic heart failure CMP - EF 20-25%; presumably nonischemic given negative lexiscan MPI stress test Acute on chronic renal insufficiency HTN Noncompliance Non-ST elevation [place] type II Diabetes Obesity Plan: Echo reviewed - EF 20-25%, mild LVH, mild MR. Of note, pt had normal LV function on echo in 2016 and now has significantly reduced LVEF. Renal indices improving. No diuretics or ACEI/ARB at this time in setting of renal insufficiency. Optimize anti-hypertensive regimen - increase lopressor and initiate Imdur for preload reduction. Cardiac defibrillator recommended in setting of CMP. Pt is agreeable to LifeVest and we will plan to reassess AICD candidacy as OP. LifeVest ordered. The patient has been seen in conjunction with Dr. Piper who agrees with the assessment and plan of care. Subjective Date of service: 06/14/18 Principal diagnosis: HF; HTN Interval history: no current cardiac complaints. Objective Last Vital Signs Temp 98.6 F 06/14/18 08:15 Pulse 78 06/14/18 10:45 Resp 20 06/14/18 08:15 BP 146/96 06/14/18 10:45 Pulse Ox 95 06/14/18 08:15 - Physical Examination General: No Apparent Distress HEENT: Positive: PERRL, Mucus Membranes Moist Neck: Positive: neck supple Cardiac: Positive: Reg Rate and Rhythm, S1/S2 Lungs: Positive: clear to auscultation Neuro: Positive: Grossly Intact Abdomen: Positive: Soft, Active Bowel Sounds. Negative: Tender, Distended Skin: Positive: Clear Incision: Cardiac Cath Site Musculoskeletal: No Pain, Normal Range of Motion Extremities: Present: normal. Absent: edema - Labs and Meds CBC 06/14/18 Range/Units 07:05 WBC 9.9 (4.5-11.0) K/mm3 RBC 5.24 H (3.65-5.03) M/mm3 Hgb 16.5 H (11.8-15.2) gm/dl Hct 48.7 H (35.5-45.6) % Plt Count 246 (140-440) K/mm3 Lymph # 2.0 (1.2-5.4) K/mm3 [place] # 0.8 (0.0-0.8) K/mm3 Eos # 0.3 (0.0-0.4) K/mm3 Baso # 0.1 (0.0-0.1) K/mm3 Comprehensive Metabolic Panel 06/14/18 Range/Units 07:05 Sodium 139 (137-145) mmol/L Potassium 3.6 (3.6-5.0) mmol/L Chloride 98.3 (98-107) mmol/L Carbon Dioxide 29 (22-30) mmol/L BUN 30 H (9-20) mg/dL Creatinine 2.8 H (0.8-1.5) mg/dL Glucose 136 H (75-100) mg/dL Calcium 9.0 (8.4-10.2) mg/dL - Imaging and Cardiology Pharmacologic stress test: report reviewed (negative for ischemia, EF 18%) Echo: report reviewed (05/2018: EF 20-25%, mild LVH, mild MR. 2015 normal LV function and diastolic dysfunction)
--- NOTE | 2018-06-14 15:44 | Progress Note ---
Assessment and Plan Assessment and plan: Acute hypoxemic resp failure likely due to CHF, currently resolved Acute CHF exac - Systolic ejection fraction of 18% on stress test - Echo was done and EF of 20-25% - Patient is currently euvolemic, Lasix discontinued - Continued leftvest HTN. Patient had adverse reaction to hydralazine will use clonidine Lopressor and amlodipine hesitant for nathan/arb in view of renal sufficiency. Therefore d/ c lisinopril. DM II. Cont accuchecks and SSI Acute on chronic kidney disease- creatinine increased from 2.7-3.0 today, Lasix discontinued, patient is euvolemic, discussed with nephrology and is okay with Lasix if needed. DVT prophylaxis - On heparin Disposition - Pending lifevest. History Interval history: Patient was seen and evaluated, patient was breathing comfortably on room air, no leg swelling. Hospitalist Physical - Physical exam Narrative exam: Not in cardiopulmonary distress. The patient is obese. Vital signs as documented. Head exam is unremarkable. No scleral icterus . Neck is without jugular venous distension, thyromegaly, or carotid bruits. Lungs are clear to auscultation. Cardiac exam reveals regular rate and Rhythm. First and second heart sounds normal. No murmurs, rubs or gallops. Abdominal exam reveals normal bowel sounds, no masses, no organomegaly and no aortic enlargement. Extremities are nonedematous and both femoral and pedal pulses are normal. 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 No focal weakness. - Constitutional Vitals: Temp Pulse Resp BP Pulse Ox 98.6 F 78 20 146/96 95 06/14/18 08:15 06/14/18 10:45 06/14/18 08:15 06/14/18 10:45 06/14/18 08:15 General appearance: Present: no acute distress, well-nourished Results - Labs CBC & Chem 7: 06/14/18 07:05 06/14/18 07:05 Labs: Laboratory Last Values WBC 9.9 K/mm3 (4.5-11.0) 06/14/18 07:05 RBC 5.24 M/mm3 (3.65-5.03) H 06/14/18 07:05 Hgb 16.5 gm/dl (11.8-15.2) H 06/14/18 07:05 Hct 48.7 % (35.5-45.6) H 06/14/18 07:05 MCV 93 fl (84-94) 06/14/18 07:05 MCH 31 pg (28-32) 06/14/18 07:05 MCHC 34 % (32-34) 06/14/18 07:05 RDW 14.0 % (13.2-15.2) 06/14/18 07:05 Plt Count 246 K/mm3 (140-440) 06/14/18 07:05 Lymph % (Auto) 20.1 % (13.4-35.0) 06/14/18 07:05 [place] % (Auto) 8.2 % (0.0-7.3) H 06/14/18 07:05 Eos % (Auto) 3.5 % (0.0-4.3) 06/14/18 07:05 Baso % (Auto) 1.1 % (0.0-1.8) 06/14/18 07:05 Lymph # 2.0 K/mm3 (1.2-5.4) 06/14/18 07:05 [place] # 0.8 K/mm3 (0.0-0.8) 06/14/18 07:05 Eos # 0.3 K/mm3 (0.0-0.4) 06/14/18 07:05 Baso # 0.1 K/mm3 (0.0-0.1) 06/14/18 07:05 Seg Neutrophils % 67.1 % (40.0-70.0) 06/14/18 07:05 Seg Neutrophils # 6.6 K/mm3 (1.8-7.7) 06/14/18 07:05 D-Dimer 472.45 ng/mlDDU (0-234) H 06/10/18 09:45 Sodium 139 mmol/L (137-145) 06/14/18 07:05 Potassium 3.6 mmol/L (3.6-5.0) 06/14/18 07:05 Chloride 98.3 mmol/L (98-107) 06/14/18 07:05 Carbon Dioxide 29 mmol/L (22-30) 06/14/18 07:05 Anion Gap 15 mmol/L 06/14/18 07:05 BUN 30 mg/dL (9-20) H 06/14/18 07:05 Creatinine 2.8 mg/dL (0.8-1.5) H 06/14/18 07:05 Estimated GFR 30 ml/min 06/14/18 07:05 BUN/Creatinine Ratio 11 % 06/14/18 07:05 Glucose 136 mg/dL (75-100) H 06/14/18 07:05 POC Glucose 171 (70-105) H 06/14/18 12:22 Hemoglobin A1c 6.3 % (4-6) H 06/10/18 08:07 Calcium 9.0 mg/dL (8.4-10.2) 06/14/18 07:05 Phosphorus 2.90 mg/dL (2.5-4.5) 06/14/18 07:05 Total Bilirubin 0.70 mg/dL (0.1-1.2) 06/12/18 06:10 Direct Bilirubin < 0.2 mg/dL (0-0.2) 06/10/18 08:07 Indirect Bilirubin 0.5 mg/dL 06/10/18 08:07 AST 12 units/L (5-40) 06/12/18 06:10 ALT 8 units/L (7-56) 06/12/18 06:10 Alkaline Phosphatase 57 units/L (35-129) 06/12/18 06:10 Troponin T 0.053 ng/mL (0.00-0.029) H D 06/11/18 09:22 NT-Pro-B Natriuret Pep 3638 pg/mL (0-450) H 06/10/18 08:07 Total Protein 7.3 g/dL (6.3-8.2) 06/12/18 06:10 Albumin 3.6 g/dL (3.9-5) L 06/12/18 06:10 Albumin/Globulin Ratio 1.0 % 06/12/18 06:10 Triglycerides 116 mg/dL (2-149) 06/10/18 08:07 Cholesterol 216 mg/dL (50-199) H 06/10/18 08:07 LDL Cholesterol Direct 150 mg/dL (50-130) H 06/10/18 08:07 HDL Cholesterol 62 mg/dL (40-59) H 06/10/18 08:07 Cholesterol/HDL Ratio 3.48 % 06/10/18 08:07 Urine Color Yellow (Yellow) 06/10/18 Unknown Urine Turbidity Cloudy (Clear) 06/10/18 Unknown Urine pH 5.0 (5.0-7.0) 06/10/18 Unknown Ur Specific [place] 1.024 (1.003-1.030) 06/10/18 Unknown Urine Protein >500 mg/dL (Negative) 06/10/18 Unknown Urine Glucose (UA) 150 mg/dL (Negative) 06/10/18 Unknown Urine Ketones Neg mg/dL (Negative) 06/10/18 Unknown Urine Blood Mod (Negative) 06/10/18 Unknown Urine Nitrite Neg (Negative) 06/10/18 Unknown Urine Bilirubin Neg (Negative) 06/10/18 Unknown Urine Urobilinogen < 2.0 mg/dL (<2.0) 06/10/18 Unknown Ur Leukocyte Esterase Neg (Negative) 06/10/18 Unknown Urine WBC (Auto) 5.0 /HPF (0.0-6.0) 06/10/18 Unknown Urine RBC (Auto) > 182.0 /HPF (0.0-6.0) 06/10/18 Unknown U Epithel Cells (Auto) < 1.0 /HPF (0-13.0) 06/10/18 Unknown Hyaline Casts 4 /LPF 06/10/18 Unknown Urine Mucus Few /HPF 06/10/18 Unknown Hep Bs Antigen Non-reactive (Negative) 06/14/18 14:34 Hepatitis C Antibody Non-reactive (NonReactive) 06/14/18 14:34 HIV 1&2 Antibody Rapid Non react (Non React) 06/14/18 14:34 HIV P24 Antigen Non react (Non React) 06/14/18 14:34
[2018-06-14] MEDS: IMDUR PO SCH (18:48)
[2018-06-15 07:23] LABS: Calcium 8.9 mg/dL (8.4-10.2)
[2018-06-15] MEDS: HumaLOG SUB-Q SCH ×4 (08:21→22:10)
[2018-06-15] MEDS: IMDUR PO SCH (09:09)
[2018-06-15] MEDS: BABY ASPIRIN PO SCH (09:10)
[2018-06-15] MEDS: NORVASC PO SCH (09:10)
[2018-06-15] MEDS: LOPRESSOR PO SCH ×2 (09:10→22:12)
[2018-06-15] MEDS: HEPARIN SUB-Q SCH ×2 (09:11→22:13)
[2018-06-15] MEDS ORDERED: IMDUR PO SCH (10:00)
[2018-06-15] MEDS: SODIUM CHLORIDE FLUSH SYRINGE 10 ML IV SCH ×2 (10:15→22:13)
--- NOTE | 2018-06-15 10:23 | Progress Note ---
Assessment and Plan Assessment: Acute on chronic systolic heart failure - nearing/at euvolemia CMP - EF 20-25%; presumably nonischemic given lexiscan MPI stress test negative for ischemia Acute on chronic renal insufficiency HTN Noncompliance Non-ST elevation RI type II Diabetes Obesity Plan: Currently stable cardiac status. Cont present cardiac regimen. No diuretics or ACEI/ARB at this time in setting of renal insufficiency. Await LifeVest placement. Pending LifeVest placement, pt may discharge home from cardiology standpoint. Follow up in our [place] office with Dr. Luna on 06/19/2018 @ 2:30PM. The patient has been seen in conjunction with Dr. Kentrell Werner who agrees with the assessment and plan of care. Subjective Date of service: 06/15/18 Principal diagnosis: HF; HTN Interval history: pt resting up in chair. no current cardiac complaints. Objective Last Vital Signs Temp 98.3 F 06/15/18 08:51 Pulse 76 06/15/18 09:10 Resp 18 06/15/18 08:51 BP 159/107 06/15/18 09:10 Pulse Ox 97 06/15/18 08:51 - Physical Examination General: No Apparent Distress HEENT: Positive: PERRL, Mucus Membranes Moist Neck: Positive: neck supple Cardiac: Positive: Reg Rate and Rhythm, S1/S2 Lungs: Positive: clear to auscultation Neuro: Positive: Grossly Intact Abdomen: Positive: Soft, Active Bowel Sounds. Negative: Tender, Distended Skin: Positive: Clear Incision: Cardiac Cath Site Musculoskeletal: No Pain, Normal Range of Motion Extremities: Present: normal. Absent: edema - Labs and Meds Comprehensive Metabolic Panel 06/15/18 Range/Units 06:34 Sodium 140 (137-145) mmol/L Potassium 3.9 (3.6-5.0) mmol/L Chloride 96.4 L (98-107) mmol/L Carbon Dioxide 28 (22-30) mmol/L BUN 32 H (9-20) mg/dL Creatinine 3.0 H (0.8-1.5) mg/dL Glucose 118 H (75-100) mg/dL Calcium 8.9 (8.4-10.2) mg/dL - Imaging and Cardiology Pharmacologic stress test: report reviewed (negative for ischemia, EF 18%) Echo: report reviewed (05/2018: EF 20-25%, mild LVH, mild MR. 2016 normal LV function and diastolic dysfunction) - Telemetry EKG Rhythm: Sinus Rhythm
--- NOTE | 2018-06-15 11:11 | Progress Note ---
Assessment and Plan Acute Kidney Injury on underlying Chronic Kidney Disease secondary to Diabetic Nephropathy and Hypertensive Nephrosclerosis vs progression of CKD : - Renal function reviewed, SCr level was 3.0 today, yesterday's SCr level was 2.9 - Exact SCr baseline unknown - Hep C antibody, Hep B antigen, HIV negative - SPEP, AMAYA, ANCA, complements, Anti-GBM levels pending - Renal US showed bilateral non-obstructing renal calculi - Obtain daily weights - Latif Catheter: No - Renal plan d/w Dr Leija - Continue supportive therapy Acute on Chronic Systolic Congestive Heart Failure: - LVEF 20-25% - Negative MPI - Cardiology awaiting Lifevest prior to discharge home - Lasix as needed Essential Hypertension: - Monitor on current regimen - Adjust meds as needed Diabetes Mellitus Type 2 non-insulin dependent: - As per primary team Subjective Date of service: 06/15/18 Principal diagnosis: HF; HTN Interval history: Pt denies shortness of breath, no acute distress. No family at bedside Objective - Vital Signs Vital signs: Vital Signs - 12hr 06/14/18 06/15/18 06/15/18 23:37 00:28 04:00 Temperature 98.9 F Pulse Rate 73 74 75 Respiratory 18 Rate Blood Pressure 128/79 Blood Pressure 128/79 [Right] O2 Sat by Pulse 97 97 Oximetry 06/15/18 06/15/18 06/15/18 04:09 05:14 08:51 Temperature 98.9 F 98.3 F Pulse Rate 66 74 81 Respiratory 18 18 Rate Blood Pressure 132/82 159/107 Blood Pressure 132/82 [Right] O2 Sat by Pulse 97 95 97 Oximetry 06/15/18 06/15/18 09:09 09:10 Temperature Pulse Rate 76 76 Respiratory Rate Blood Pressure 156/107 159/107 Blood Pressure [Right] O2 Sat by Pulse Oximetry - General Appearance General appearance: well-developed (no acute distress) EENT: ATNC Neck: no JVD Respiratory: Present: Clear to Ascultation Cardiology: regular, S1S2 Gastrointestinal: normoactive bowel sounds, no tenderness Integumentary: warm and dry Neurologic: alert and oriented x3 Musculoskeletal: other (no edema to both lower extremities) Psychiatric: mood/affect appropriate, cooperative - Lab 06/14/18 07:05 06/15/18 06:34 Most recent lab results Calcium 8.9 mg/dL (8.4-10.2) 06/15/18 06:34 Phosphorus 3.60 mg/dL (2.5-4.5) D 06/15/18 06:34
--- NOTE | 2018-06-15 14:25 | Progress Note ---
Assessment and Plan Assessment and plan: Acute hypoxemic resp failure likely due to CHF, currently resolved Acute CHF exac - Systolic ejection fraction of 18% on stress test - Echo was done and EF of 20-25% - Patient is currently euvolemic, Lasix discontinued - Continued leftvest HTN. Patient had adverse reaction to hydralazine will use clonidine Lopressor and amlodipine hesitant for nathan/arb in view of renal sufficiency. Therefore d/ c lisinopril. DM II. Cont accuchecks and SSI Acute on chronic kidney disease- creatinine increased from 2.7-3.0 today, Lasix discontinued, patient is euvolemic, discussed with nephrology and is okay with Lasix if needed. DVT prophylaxis - On heparin Disposition - Pending lifevest. History Interval history: Patient was seen and evaluated, patient was breathing comfortably on room air, no leg swelling. Hospitalist Physical - Physical exam Narrative exam: Not in cardiopulmonary distress. The patient is obese. Vital signs as documented. Head exam is unremarkable. No scleral icterus . Neck is without jugular venous distension, thyromegaly, or carotid bruits. Lungs are clear to auscultation. Cardiac exam reveals regular rate and Rhythm. First and second heart sounds normal. No murmurs, rubs or gallops. Abdominal exam reveals normal bowel sounds, no masses, no organomegaly and no aortic enlargement. Extremities are nonedematous and both femoral and pedal pulses are normal. 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 No focal weakness. - Constitutional Vitals: Temp Pulse Resp BP Pulse Ox 98.3 F 72 18 128/87 96 06/15/18 08:51 06/15/18 11:34 06/15/18 08:51 06/15/18 11:34 06/15/18 11:34 General appearance: Present: no acute distress, well-nourished Results - Labs CBC & Chem 7: 06/14/18 07:05 06/15/18 06:34 Labs: Laboratory Last Values WBC 9.9 K/mm3 (4.5-11.0) 06/14/18 07:05 RBC 5.24 M/mm3 (3.65-5.03) H 06/14/18 07:05 Hgb 16.5 gm/dl (11.8-15.2) H 06/14/18 07:05 Hct 48.7 % (35.5-45.6) H 06/14/18 07:05 MCV 93 fl (84-94) 06/14/18 07:05 MCH 31 pg (28-32) 06/14/18 07:05 MCHC 34 % (32-34) 06/14/18 07:05 RDW 14.0 % (13.2-15.2) 06/14/18 07:05 Plt Count 246 K/mm3 (140-440) 06/14/18 07:05 Lymph % (Auto) 20.1 % (13.4-35.0) 06/14/18 07:05 [place] % (Auto) 8.2 % (0.0-7.3) H 06/14/18 07:05 Eos % (Auto) 3.5 % (0.0-4.3) 06/14/18 07:05 Baso % (Auto) 1.1 % (0.0-1.8) 06/14/18 07:05 Lymph # 2.0 K/mm3 (1.2-5.4) 06/14/18 07:05 [place] # 0.8 K/mm3 (0.0-0.8) 06/14/18 07:05 Eos # 0.3 K/mm3 (0.0-0.4) 06/14/18 07:05 Baso # 0.1 K/mm3 (0.0-0.1) 06/14/18 07:05 Seg Neutrophils % 67.1 % (40.0-70.0) 06/14/18 07:05 Seg Neutrophils # 6.6 K/mm3 (1.8-7.7) 06/14/18 07:05 D-Dimer 472.45 ng/mlDDU (0-234) H 06/10/18 09:45 Sodium 140 mmol/L (137-145) 06/15/18 06:34 Potassium 3.9 mmol/L (3.6-5.0) 06/15/18 06:34 Chloride 96.4 mmol/L (98-107) L 06/15/18 06:34 Carbon Dioxide 28 mmol/L (22-30) 06/15/18 06:34 Anion Gap 20 mmol/L 06/15/18 06:34 BUN 32 mg/dL (9-20) H 06/15/18 06:34 Creatinine 3.0 mg/dL (0.8-1.5) H 06/15/18 06:34 Estimated GFR 28 ml/min 06/15/18 06:34 BUN/Creatinine Ratio 11 % 06/15/18 06:34 Glucose 118 mg/dL (75-100) H 06/15/18 06:34 POC Glucose 160 (70-105) H 06/15/18 11:45 Hemoglobin A1c 6.3 % (4-6) H 06/10/18 08:07 Calcium 8.9 mg/dL (8.4-10.2) 06/15/18 06:34 Phosphorus 3.60 mg/dL (2.5-4.5) D 06/15/18 06:34 Total Bilirubin 0.70 mg/dL (0.1-1.2) 06/12/18 06:10 Direct Bilirubin < 0.2 mg/dL (0-0.2) 06/10/18 08:07 Indirect Bilirubin 0.5 mg/dL 06/10/18 08:07 AST 12 units/L (5-40) 06/12/18 06:10 ALT 8 units/L (7-56) 06/12/18 06:10 Alkaline Phosphatase 57 units/L (35-129) 06/12/18 06:10 Troponin T 0.053 ng/mL (0.00-0.029) H D 06/11/18 09:22 NT-Pro-B Natriuret Pep 3638 pg/mL (0-450) H 06/10/18 08:07 Total Protein 7.3 g/dL (6.3-8.2) 06/12/18 06:10 Albumin 3.6 g/dL (3.9-5) L 06/12/18 06:10 Albumin/Globulin Ratio 1.0 % 06/12/18 06:10 Triglycerides 116 mg/dL (2-149) 06/10/18 08:07 Cholesterol 216 mg/dL (50-199) H 06/10/18 08:07 LDL Cholesterol Direct 150 mg/dL (50-130) H 06/10/18 08:07 HDL Cholesterol 62 mg/dL (40-59) H 06/10/18 08:07 Cholesterol/HDL Ratio 3.48 % 06/10/18 08:07 Urine Color Yellow (Yellow) 06/10/18 Unknown Urine Turbidity Cloudy (Clear) 06/10/18 Unknown Urine pH 5.0 (5.0-7.0) 06/10/18 Unknown Ur Specific [place] 1.024 (1.003-1.030) 06/10/18 Unknown Urine Protein >500 mg/dL (Negative) 06/10/18 Unknown Urine Glucose (UA) 150 mg/dL (Negative) 06/10/18 Unknown Urine Ketones Neg mg/dL (Negative) 06/10/18 Unknown Urine Blood Mod (Negative) 06/10/18 Unknown Urine Nitrite Neg (Negative) 06/10/18 Unknown Urine Bilirubin Neg (Negative) 06/10/18 Unknown Urine Urobilinogen < 2.0 mg/dL (<2.0) 06/10/18 Unknown Ur Leukocyte Esterase Neg (Negative) 06/10/18 Unknown Urine WBC (Auto) 5.0 /HPF (0.0-6.0) 06/10/18 Unknown Urine RBC (Auto) > 182.0 /HPF (0.0-6.0) 06/10/18 Unknown U Epithel Cells (Auto) < 1.0 /HPF (0-13.0) 06/10/18 Unknown Hyaline Casts 4 /LPF 06/10/18 Unknown Urine Mucus Few /HPF 06/10/18 Unknown Hep Bs Antigen Non-reactive (Negative) 06/14/18 14:34 Hepatitis C Antibody Non-reactive (NonReactive) 06/14/18 14:34 HIV 1&2 Antibody Rapid Non react (Non React) 06/14/18 14:34 HIV P24 Antigen Non react (Non React) 06/14/18 14:34
[2018-06-16] MEDS: HumaLOG SUB-Q SCH ×4 (07:30→21:44)
[2018-06-16 08:22] LABS: Calcium 8.8 mg/dL (8.4-10.2)
[2018-06-16] MEDS: LOPRESSOR PO SCH ×2 (10:33→21:43)
[2018-06-16] MEDS: IMDUR PO SCH (10:33)
[2018-06-16] MEDS: NORVASC PO SCH (10:33)
[2018-06-16] MEDS: BABY ASPIRIN PO SCH (10:34)
[2018-06-16] MEDS: SODIUM CHLORIDE FLUSH SYRINGE 10 ML IV SCH ×2 (10:34→21:47)
[2018-06-16] MEDS: HEPARIN SUB-Q SCH ×2 (10:36→21:44)
--- NOTE | 2018-06-16 10:47 | Progress Note ---
Assessment and Plan Acute on Chronic Kidney Disease secondary to Diabetic Nephropathy and Hypertensive Nephrosclerosis vs progression of CKD : -Renal function reviewed. Serum creatinine 2.7 today from 3.0 yesterday, stable - Likely has CKD due to DM and HTN - Urine protein > 500 - SPEP, AMAYA, Anca, Complements, anti-GBM- pending - HIV, HCV and HBV- negative - Renal US reviewed- Bilateral nonobstructing renal calculi - Strict I&O monitoring - Obtain daily weights - Continue to monitor renal function closely CHF exacerbation - LVEF 18% - Negative MPI - Lasix as needed - Cardiology awaiting [facility] prior to discharge home HTN - On anti-hypertensive agents - Adjust meds as needed DM type II - As per primary team Subjective Date of service: 06/16/18 Principal diagnosis: HF; HTN Interval history: Patient seen lying in bed. No family at bedside. Patient awake and alert. Objective - Vital Signs Vital signs: Vital Signs - 12hr 06/15/18 06/16/18 06/16/18 23:29 05:20 08:44 Temperature 98.4 F 98.2 F 98.4 F Pulse Rate 77 80 75 Respiratory 18 18 18 Rate Blood Pressure 135/98 158/129 161/111 O2 Sat by Pulse 97 98 98 Oximetry - General Appearance General appearance: well-developed, appears stated age EENT: ATNC, PERRL, hearing intact, vision intact Neck: no JVD, supple Respiratory: Present: Decreased Breath Sounds Cardiology: regular, S1S2 Gastrointestinal: normoactive bowel sounds Integumentary: warm and dry Neurologic: alert and oriented x3 Musculoskeletal: no deformities, no erythema, no cyanosis, no clubbing - Lab 06/14/18 07:05 06/16/18 06:31 Most recent lab results Calcium 8.8 mg/dL (8.4-10.2) 06/16/18 06:31 Phosphorus 2.80 mg/dL (2.5-4.5) D 06/16/18 06:31
--- NOTE | 2018-06-16 15:06 | Progress Note ---
Assessment and Plan Assessment and plan: Acute hypoxemic resp failure likely due to CHF, currently resolved Acute CHF exac - Systolic ejection fraction of 18% on stress test - Echo was done and EF of 20-25% - Patient is currently euvolemic, Lasix discontinued - patient need lifevest and pending to get it, patient is uninsured HTN. Patient had adverse reaction to hydralazine will use clonidine, Lopressor and amlodipine hesitant for nathan/arb in view of renal sufficiency. Therefore d/ c lisinopril. DM II. Cont accuchecks and SSI Acute on chronic kidney disease- Lasix discontinued, patient is euvolemic, discussed with nephrology and is okay with Lasix if needed. nephrology following DVT prophylaxis - On heparin Disposition - Pending lifevest. History Interval history: Patient was seen and evaluated, patient was breathing comfortably on room air, no leg swelling. Hospitalist Physical - Physical exam Narrative exam: Not in cardiopulmonary distress. The patient is obese. Vital signs as documented. Head exam is unremarkable. No scleral icterus . Neck is without jugular venous distension, thyromegaly, or carotid bruits. Lungs are clear to auscultation. Cardiac exam reveals regular rate and Rhythm. First and second heart sounds normal. No murmurs, rubs or gallops. Abdominal exam reveals normal bowel sounds, no masses, no organomegaly and no aortic enlargement. Extremities are nonedematous and both femoral and pedal pulses are normal. 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 No focal weakness. - Constitutional Vitals: Temp Pulse Resp BP Pulse Ox 98.4 F 75 18 161/111 98 06/16/18 08:44 06/16/18 08:44 06/16/18 08:44 06/16/18 08:44 06/16/18 08:44 General appearance: Present: no acute distress, well-nourished Results - Labs CBC & Chem 7: 06/14/18 07:05 06/16/18 06:31 Labs: Laboratory Last Values WBC 9.9 K/mm3 (4.5-11.0) 06/14/18 07:05 RBC 5.24 M/mm3 (3.65-5.03) H 06/14/18 07:05 Hgb 16.5 gm/dl (11.8-15.2) H 06/14/18 07:05 Hct 48.7 % (35.5-45.6) H 06/14/18 07:05 MCV 93 fl (84-94) 06/14/18 07:05 MCH 31 pg (28-32) 06/14/18 07:05 MCHC 34 % (32-34) 06/14/18 07:05 RDW 14.0 % (13.2-15.2) 06/14/18 07:05 Plt Count 246 K/mm3 (140-440) 06/14/18 07:05 Lymph % (Auto) 20.1 % (13.4-35.0) 06/14/18 07:05 [place] % (Auto) 8.2 % (0.0-7.3) H 06/14/18 07:05 Eos % (Auto) 3.5 % (0.0-4.3) 06/14/18 07:05 Baso % (Auto) 1.1 % (0.0-1.8) 06/14/18 07:05 Lymph # 2.0 K/mm3 (1.2-5.4) 06/14/18 07:05 [place] # 0.8 K/mm3 (0.0-0.8) 06/14/18 07:05 Eos # 0.3 K/mm3 (0.0-0.4) 06/14/18 07:05 Baso # 0.1 K/mm3 (0.0-0.1) 06/14/18 07:05 Seg Neutrophils % 67.1 % (40.0-70.0) 06/14/18 07:05 Seg Neutrophils # 6.6 K/mm3 (1.8-7.7) 06/14/18 07:05 D-Dimer 472.45 ng/mlDDU (0-234) H 06/10/18 09:45 Sodium 139 mmol/L (137-145) 06/16/18 06:31 Potassium 3.9 mmol/L (3.6-5.0) 06/16/18 06:31 Chloride 98.4 mmol/L (98-107) 06/16/18 06:31 Carbon Dioxide 27 mmol/L (22-30) 06/16/18 06:31 Anion Gap 18 mmol/L 06/16/18 06:31 BUN 32 mg/dL (9-20) H 06/16/18 06:31 Creatinine 2.7 mg/dL (0.8-1.5) H 06/16/18 06:31 Estimated GFR 31 ml/min 06/16/18 06:31 BUN/Creatinine Ratio 12 % 06/16/18 06:31 Glucose 115 mg/dL (75-100) H 06/16/18 06:31 POC Glucose 96 (70-105) 06/16/18 11:49 Hemoglobin A1c 6.3 % (4-6) H 06/10/18 08:07 Calcium 8.8 mg/dL (8.4-10.2) 06/16/18 06:31 Phosphorus 2.80 mg/dL (2.5-4.5) D 06/16/18 06:31 Total Bilirubin 0.70 mg/dL (0.1-1.2) 06/12/18 06:10 Direct Bilirubin < 0.2 mg/dL (0-0.2) 06/10/18 08:07 Indirect Bilirubin 0.5 mg/dL 06/10/18 08:07 AST 12 units/L (5-40) 06/12/18 06:10 ALT 8 units/L (7-56) 06/12/18 06:10 Alkaline Phosphatase 57 units/L (35-129) 06/12/18 06:10 Troponin T 0.053 ng/mL (0.00-0.029) H D 06/11/18 09:22 NT-Pro-B Natriuret Pep 3638 pg/mL (0-450) H 06/10/18 08:07 Total Protein 7.3 g/dL (6.3-8.2) 06/12/18 06:10 Albumin 3.6 g/dL (3.9-5) L 06/12/18 06:10 Albumin/Globulin Ratio 1.0 % 06/12/18 06:10 Triglycerides 116 mg/dL (2-149) 06/10/18 08:07 Cholesterol 216 mg/dL (50-199) H 06/10/18 08:07 LDL Cholesterol Direct 150 mg/dL (50-130) H 06/10/18 08:07 HDL Cholesterol 62 mg/dL (40-59) H 06/10/18 08:07 Cholesterol/HDL Ratio 3.48 % 06/10/18 08:07 Urine Color Yellow (Yellow) 06/10/18 Unknown Urine Turbidity Cloudy (Clear) 06/10/18 Unknown Urine pH 5.0 (5.0-7.0) 06/10/18 Unknown Ur Specific [place] 1.024 (1.003-1.030) 06/10/18 Unknown Urine Protein >500 mg/dL (Negative) 06/10/18 Unknown Urine Glucose (UA) 150 mg/dL (Negative) 06/10/18 Unknown Urine Ketones Neg mg/dL (Negative) 06/10/18 Unknown Urine Blood Mod (Negative) 06/10/18 Unknown Urine Nitrite Neg (Negative) 06/10/18 Unknown Urine Bilirubin Neg (Negative) 06/10/18 Unknown Urine Urobilinogen < 2.0 mg/dL (<2.0) 06/10/18 Unknown Ur Leukocyte Esterase Neg (Negative) 06/10/18 Unknown Urine WBC (Auto) 5.0 /HPF (0.0-6.0) 06/10/18 Unknown Urine RBC (Auto) > 182.0 /HPF (0.0-6.0) 06/10/18 Unknown U Epithel Cells (Auto) < 1.0 /HPF (0-13.0) 06/10/18 Unknown Hyaline Casts 4 /LPF 06/10/18 Unknown Urine Mucus Few /HPF 06/10/18 Unknown Hep Bs Antigen Non-reactive (Negative) 06/14/18 14:34 Hepatitis C Antibody Non-reactive (NonReactive) 06/14/18 14:34 HIV 1&2 Antibody Rapid Non react (Non React) 06/14/18 14:34 HIV P24 Antigen Non react (Non React) 06/14/18 14:34
[2018-06-17] MEDS: SODIUM CHLORIDE FLUSH SYRINGE 10 ML IV PRN ×2 (01:01→06:21)
[2018-06-17] MEDS: NORMODYNE IV PRN ×2 (01:01→06:20)
[2018-06-17 07:33] LABS: Calcium 9.1 mg/dL (8.4-10.2)
[2018-06-17] MEDS: HumaLOG SUB-Q SCH ×3 (08:23→21:50)
[2018-06-17] MEDS: LOPRESSOR PO SCH ×3 (08:58→21:50)
[2018-06-17] MEDS: NORVASC PO SCH (08:59)
[2018-06-17] MEDS: BABY ASPIRIN PO SCH (08:59)
[2018-06-17] MEDS: IMDUR PO SCH (08:59)
--- NOTE | 2018-06-17 13:55 | Progress Note ---
Assessment and Plan Acute Kidney Injury on underlying Chronic Kidney Disease secondary to Diabetic Nephropathy and Hypertensive Nephrosclerosis vs progression of CKD : - Renal function reviewed, SCr level was 2.8 today, yesterday's SCr level was 2.7 - Exact SCr baseline unknown - Hep C antibody, Hep B antigen, HIV negative - SPEP, AMAYA, ANCA, complements, Anti-GBM levels still pending - Renal US showed bilateral non-obstructing renal calculi - Obtain daily weights - Latif Catheter: No - Renal plan d/w Dr Leija - Continue supportive therapy Acute on Chronic Systolic Congestive Heart Failure: - LVEF 20-25% - Negative MPI - Cardiology awaiting [facility] prior to discharge home - Lasix as needed Essential Hypertension: - Monitor on current regimen - Adjust meds as needed Diabetes Mellitus Type 2 non-insulin dependent: - As per primary team Subjective Date of service: 06/17/18 Principal diagnosis: HF; HTN Interval history: Pt denies shortness of breath, no acute distress. No family at bedside Objective - Vital Signs Vital signs: Vital Signs - 12hr 06/17/18 06/17/18 06/17/18 04:00 05:18 08:00 Temperature 98.5 F 98.1 F Pulse Rate 63 79 Respiratory 18 Rate Blood Pressure 170/119 O2 Sat by Pulse 98 Oximetry 06/17/18 08:03 Temperature Pulse Rate 78 Respiratory 18 Rate Blood Pressure 169/120 O2 Sat by Pulse 98 Oximetry - General Appearance General appearance: well-developed (no acute distress) EENT: ATNC Neck: no JVD Respiratory: Present: Clear to Ascultation Cardiology: regular, S1S2 Gastrointestinal: normoactive bowel sounds, no tenderness Integumentary: warm and dry Neurologic: alert and oriented x3 Musculoskeletal: other (no edema to both lower extremities) Psychiatric: mood/affect appropriate, cooperative - Lab 06/14/18 07:05 06/17/18 06:36 Most recent lab results Calcium 9.1 mg/dL (8.4-10.2) 06/17/18 06:36 Phosphorus 3.40 mg/dL (2.5-4.5) D 06/17/18 06:36
--- NOTE | 2018-06-17 15:46 | Progress Note ---
Assessment and Plan Assessment and plan: Acute hypoxemic resp failure likely due to CHF, currently resolved Acute CHF exac - Systolic ejection fraction of 18% on stress test - Echo was done and EF of 20-25% - Patient is currently euvolemic, Lasix discontinued - patient need lifevest and pending to get it, patient is uninsured HTN. Patient had adverse reaction to hydralazine will use clonidine, Lopressor and amlodipine hesitant for nathan/arb in view of renal sufficiency. Therefore d/ c lisinopril. DM II. Cont accuchecks and SSI Acute on chronic kidney disease- Lasix discontinued, patient is euvolemic, discussed with nephrology and is okay with Lasix if needed. nephrology following DVT prophylaxis - On heparin Disposition - Pending lifevest. History Interval history: Patient was seen and evaluated, patient was breathing comfortably on room air, no leg swelling. Hospitalist Physical - Physical exam Narrative exam: Not in cardiopulmonary distress. The patient is obese. Vital signs as documented. Head exam is unremarkable. No scleral icterus . Neck is without jugular venous distension, thyromegaly, or carotid bruits. Lungs are clear to auscultation. Cardiac exam reveals regular rate and Rhythm. First and second heart sounds normal. No murmurs, rubs or gallops. Abdominal exam reveals normal bowel sounds, no masses, no organomegaly and no aortic enlargement. Extremities are nonedematous and both femoral and pedal pulses are normal. 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 No focal weakness. - Constitutional Vitals: Temp Pulse Resp BP Pulse Ox 98.1 F 78 18 169/120 98 06/17/18 08:00 06/17/18 08:03 06/17/18 08:03 06/17/18 08:03 06/17/18 08:03 General appearance: Present: no acute distress, well-nourished Results - Labs CBC & Chem 7: 06/14/18 07:05 06/17/18 06:36 Labs: Laboratory Last Values WBC 9.9 K/mm3 (4.5-11.0) 06/14/18 07:05 RBC 5.24 M/mm3 (3.65-5.03) H 06/14/18 07:05 Hgb 16.5 gm/dl (11.8-15.2) H 06/14/18 07:05 Hct 48.7 % (35.5-45.6) H 06/14/18 07:05 MCV 93 fl (84-94) 06/14/18 07:05 MCH 31 pg (28-32) 06/14/18 07:05 MCHC 34 % (32-34) 06/14/18 07:05 RDW 14.0 % (13.2-15.2) 06/14/18 07:05 Plt Count 246 K/mm3 (140-440) 06/14/18 07:05 Lymph % (Auto) 20.1 % (13.4-35.0) 06/14/18 07:05 [place] % (Auto) 8.2 % (0.0-7.3) H 06/14/18 07:05 Eos % (Auto) 3.5 % (0.0-4.3) 06/14/18 07:05 Baso % (Auto) 1.1 % (0.0-1.8) 06/14/18 07:05 Lymph # 2.0 K/mm3 (1.2-5.4) 06/14/18 07:05 [place] # 0.8 K/mm3 (0.0-0.8) 06/14/18 07:05 Eos # 0.3 K/mm3 (0.0-0.4) 06/14/18 07:05 Baso # 0.1 K/mm3 (0.0-0.1) 06/14/18 07:05 Seg Neutrophils % 67.1 % (40.0-70.0) 06/14/18 07:05 Seg Neutrophils # 6.6 K/mm3 (1.8-7.7) 06/14/18 07:05 D-Dimer 472.45 ng/mlDDU (0-234) H 06/10/18 09:45 Sodium 139 mmol/L (137-145) 06/17/18 06:36 Potassium 3.6 mmol/L (3.6-5.0) 06/17/18 06:36 Chloride 100.4 mmol/L (98-107) 06/17/18 06:36 Carbon Dioxide 23 mmol/L (22-30) 06/17/18 06:36 Anion Gap 19 mmol/L 06/17/18 06:36 BUN 33 mg/dL (9-20) H 06/17/18 06:36 Creatinine 2.8 mg/dL (0.8-1.5) H 06/17/18 06:36 Estimated GFR 30 ml/min 06/17/18 06:36 BUN/Creatinine Ratio 12 % 06/17/18 06:36 Glucose 127 mg/dL (75-100) H 06/17/18 06:36 POC Glucose 97 (70-105) 06/17/18 05:28 Hemoglobin A1c 6.3 % (4-6) H 06/10/18 08:07 Calcium 9.1 mg/dL (8.4-10.2) 06/17/18 06:36 Phosphorus 3.40 mg/dL (2.5-4.5) D 06/17/18 06:36 Total Bilirubin 0.70 mg/dL (0.1-1.2) 06/12/18 06:10 Direct Bilirubin < 0.2 mg/dL (0-0.2) 06/10/18 08:07 Indirect Bilirubin 0.5 mg/dL 06/10/18 08:07 AST 12 units/L (5-40) 06/12/18 06:10 ALT 8 units/L (7-56) 06/12/18 06:10 Alkaline Phosphatase 57 units/L (35-129) 06/12/18 06:10 Troponin T 0.053 ng/mL (0.00-0.029) H D 06/11/18 09:22 NT-Pro-B Natriuret Pep 3638 pg/mL (0-450) H 06/10/18 08:07 Total Protein 7.3 g/dL (6.3-8.2) 06/12/18 06:10 Albumin 3.6 g/dL (3.9-5) L 06/12/18 06:10 Albumin/Globulin Ratio 1.0 % 06/12/18 06:10 Triglycerides 116 mg/dL (2-149) 06/10/18 08:07 Cholesterol 216 mg/dL (50-199) H 06/10/18 08:07 LDL Cholesterol Direct 150 mg/dL (50-130) H 06/10/18 08:07 HDL Cholesterol 62 mg/dL (40-59) H 06/10/18 08:07 Cholesterol/HDL Ratio 3.48 % 06/10/18 08:07 Urine Color Yellow (Yellow) 06/10/18 Unknown Urine Turbidity Cloudy (Clear) 06/10/18 Unknown Urine pH 5.0 (5.0-7.0) 06/10/18 Unknown Ur Specific [place] 1.024 (1.003-1.030) 06/10/18 Unknown Urine Protein >500 mg/dL (Negative) 06/10/18 Unknown Urine Glucose (UA) 150 mg/dL (Negative) 06/10/18 Unknown Urine Ketones Neg mg/dL (Negative) 06/10/18 Unknown Urine Blood Mod (Negative) 06/10/18 Unknown Urine Nitrite Neg (Negative) 06/10/18 Unknown Urine Bilirubin Neg (Negative) 06/10/18 Unknown Urine Urobilinogen < 2.0 mg/dL (<2.0) 06/10/18 Unknown Ur Leukocyte Esterase Neg (Negative) 06/10/18 Unknown Urine WBC (Auto) 5.0 /HPF (0.0-6.0) 06/10/18 Unknown Urine RBC (Auto) > 182.0 /HPF (0.0-6.0) 06/10/18 Unknown U Epithel Cells (Auto) < 1.0 /HPF (0-13.0) 06/10/18 Unknown Hyaline Casts 4 /LPF 06/10/18 Unknown Urine Mucus Few /HPF 06/10/18 Unknown Hep Bs Antigen Non-reactive (Negative) 06/14/18 14:34 Hepatitis C Antibody Non-reactive (NonReactive) 06/14/18 14:34 HIV 1&2 Antibody Rapid Non react (Non React) 06/14/18 14:34 HIV P24 Antigen Non react (Non React) 06/14/18 14:34
[2018-06-17] MEDS: HEPARIN SUB-Q SCH (21:49)
[2018-06-17] MEDS: SODIUM CHLORIDE FLUSH SYRINGE 10 ML IV SCH (21:50)
[2018-06-18] MEDS ORDERED: APRESOLINE IV PRN (00:32)
[2018-06-18] MEDS ORDERED: APRESOLINE IV ONE (00:33)
[2018-06-18] MEDS ORDERED: NORMODYNE IV ONE (01:08)
[2018-06-18] MEDS: SODIUM CHLORIDE FLUSH SYRINGE 10 ML IV PRN (01:17)
[2018-06-18] MEDS: HumaLOG SUB-Q SCH ×2 (07:44→21:10)
[2018-06-18] MEDS: SODIUM CHLORIDE FLUSH SYRINGE 10 ML IV SCH ×3 (07:44→21:10)
[2018-06-18] MEDS: HEPARIN SUB-Q SCH ×2 (07:44→21:09)
[2018-06-18 10:09] LABS: Calcium 9.1 mg/dL (8.4-10.2)
[2018-06-18] MEDS: BABY ASPIRIN PO SCH (10:41)
[2018-06-18] MEDS: LOPRESSOR PO SCH ×2 (10:41→21:09)
[2018-06-18] MEDS: IMDUR PO SCH (10:41)
[2018-06-18] MEDS: NORVASC PO SCH (10:41)
--- NOTE | 2018-06-18 14:36 | Progress Note ---
Assessment and Plan Acute Kidney Injury on underlying Chronic Kidney Disease secondary to Diabetic Nephropathy and Hypertensive Nephrosclerosis vs progression of CKD : - Renal function reviewed, stable, SCr level was 2.6 today, yesterday's SCr level was 2.8 - Exact SCr baseline unknown - Hep C antibody, Hep B antigen, HIV negative - SPEP, AMAYA, ANCA, complements, Anti-GBM levels still pending - Ok to be d/c home from nephrology standpoint once medically cleared and lifevest arrives per cardiology recs. Pt will need to follow up with our nephrology practice ([facility]) within 1 week for further renal management - Renal US showed bilateral non-obstructing renal calculi - Obtain daily weights - Latif Catheter: No - Renal plan d/w Dr Leija - Continue supportive therapy Acute on Chronic Systolic Congestive Heart Failure: - LVEF 20-25% - Negative MPI - Cardiology awaiting [facility] prior to discharge home - Lasix as needed Essential Hypertension: - Monitor on current regimen - Adjust meds as needed Diabetes Mellitus Type 2 non-insulin dependent: - As per primary team Subjective Date of service: 06/18/18 Principal diagnosis: HF; HTN Interval history: Pt denies shortness of breath, no acute distress. Mother at bedside Objective - Vital Signs Vital signs: Vital Signs - 12hr 06/18/18 06/18/18 06/18/18 04:00 07:34 11:02 Temperature 98.3 F 98.5 F 98.0 F Pulse Rate 77 85 78 Respiratory 18 20 20 Rate Blood Pressure 140/97 162/109 Blood Pressure 123/84 [Right] O2 Sat by Pulse 94 96 97 Oximetry - General Appearance General appearance: well-developed (no acute distress) EENT: ATNC Neck: no JVD Respiratory: Present: Clear to Ascultation Cardiology: regular, S1S2 Gastrointestinal: normoactive bowel sounds, no tenderness Integumentary: warm and dry Neurologic: alert and oriented x3 Musculoskeletal: other (no edema to both lower extremities) Psychiatric: mood/affect appropriate, cooperative - Lab 06/14/18 07:05 06/18/18 07:44 Most recent lab results Calcium 9.1 mg/dL (8.4-10.2) 06/18/18 07:44 Phosphorus 2.50 mg/dL (2.5-4.5) D 06/18/18 07:44
--- NOTE | 2018-06-18 15:04 | Progress Note ---
Assessment and Plan Assessment and plan: Acute hypoxemic resp failure likely due to CHF, currently resolved Acute CHF exac - Systolic ejection fraction of 18% on stress test - Echo was done and EF of 20-25% - Patient is currently euvolemic, Lasix discontinued - patient need lifevest and pending to get it, patient is uninsured HTN. Patient had adverse reaction to hydralazine will use clonidine, Lopressor and amlodipine hesitant for nathan/arb in view of renal sufficiency. Therefore d/ c lisinopril. DM II. Cont accuchecks and SSI Acute on chronic kidney disease- Lasix discontinued, patient is euvolemic, discussed with nephrology and is okay with Lasix if needed. nephrology following. Creatinine is trending down. DVT prophylaxis - On heparin Disposition - Pending lifevest. History Interval history: Patient was seen and evaluated, patient was breathing comfortably on room air, no leg swelling. Hospitalist Physical - Physical exam Narrative exam: Not in cardiopulmonary distress. The patient is obese. Vital signs as documented. Head exam is unremarkable. No scleral icterus . Neck is without jugular venous distension, thyromegaly, or carotid bruits. Lungs are clear to auscultation. Cardiac exam reveals regular rate and Rhythm. First and second heart sounds normal. No murmurs, rubs or gallops. Abdominal exam reveals normal bowel sounds, no masses, no organomegaly and no aortic enlargement. Extremities are nonedematous and both femoral and pedal pulses are normal. 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 No focal weakness. - Constitutional Vitals: Temp Pulse Resp BP Pulse Ox 98.0 F 78 20 162/109 97 06/18/18 11:02 06/18/18 11:02 06/18/18 11:02 06/18/18 11:02 06/18/18 11:02 General appearance: Present: no acute distress, well-nourished Results - Labs CBC & Chem 7: 06/14/18 07:05 06/18/18 07:44 Labs: Laboratory Last Values WBC 9.9 K/mm3 (4.5-11.0) 06/14/18 07:05 RBC 5.24 M/mm3 (3.65-5.03) H 06/14/18 07:05 Hgb 16.5 gm/dl (11.8-15.2) H 06/14/18 07:05 Hct 48.7 % (35.5-45.6) H 06/14/18 07:05 MCV 93 fl (84-94) 06/14/18 07:05 MCH 31 pg (28-32) 06/14/18 07:05 MCHC 34 % (32-34) 06/14/18 07:05 RDW 14.0 % (13.2-15.2) 06/14/18 07:05 Plt Count 246 K/mm3 (140-440) 06/14/18 07:05 Lymph % (Auto) 20.1 % (13.4-35.0) 06/14/18 07:05 [place] % (Auto) 8.2 % (0.0-7.3) H 06/14/18 07:05 Eos % (Auto) 3.5 % (0.0-4.3) 06/14/18 07:05 Baso % (Auto) 1.1 % (0.0-1.8) 06/14/18 07:05 Lymph # 2.0 K/mm3 (1.2-5.4) 06/14/18 07:05 [place] # 0.8 K/mm3 (0.0-0.8) 06/14/18 07:05 Eos # 0.3 K/mm3 (0.0-0.4) 06/14/18 07:05 Baso # 0.1 K/mm3 (0.0-0.1) 06/14/18 07:05 Seg Neutrophils % 67.1 % (40.0-70.0) 06/14/18 07:05 Seg Neutrophils # 6.6 K/mm3 (1.8-7.7) 06/14/18 07:05 D-Dimer 472.45 ng/mlDDU (0-234) H 06/10/18 09:45 Sodium 140 mmol/L (137-145) 06/18/18 07:44 Potassium 3.6 mmol/L (3.6-5.0) 06/18/18 07:44 Chloride 99.9 mmol/L (98-107) 06/18/18 07:44 Carbon Dioxide 24 mmol/L (22-30) 06/18/18 07:44 Anion Gap 20 mmol/L 06/18/18 07:44 BUN 30 mg/dL (9-20) H 06/18/18 07:44 Creatinine 2.6 mg/dL (0.8-1.5) H 06/18/18 07:44 Estimated GFR 32 ml/min 06/18/18 07:44 BUN/Creatinine Ratio 12 % 06/18/18 07:44 Glucose 109 mg/dL (75-100) H 06/18/18 07:44 POC Glucose 154 (70-105) H 06/18/18 11:07 Hemoglobin A1c 6.3 % (4-6) H 06/10/18 08:07 Calcium 9.1 mg/dL (8.4-10.2) 06/18/18 07:44 Phosphorus 2.50 mg/dL (2.5-4.5) D 06/18/18 07:44 Total Bilirubin 0.70 mg/dL (0.1-1.2) 06/12/18 06:10 Direct Bilirubin < 0.2 mg/dL (0-0.2) 06/10/18 08:07 Indirect Bilirubin 0.5 mg/dL 06/10/18 08:07 AST 12 units/L (5-40) 06/12/18 06:10 ALT 8 units/L (7-56) 06/12/18 06:10 Alkaline Phosphatase 57 units/L (35-129) 06/12/18 06:10 Troponin T 0.053 ng/mL (0.00-0.029) H D 06/11/18 09:22 NT-Pro-B Natriuret Pep 3638 pg/mL (0-450) H 06/10/18 08:07 Total Protein 7.3 g/dL (6.3-8.2) 06/12/18 06:10 Albumin 3.6 g/dL (3.9-5) L 06/12/18 06:10 Albumin/Globulin Ratio 1.0 % 06/12/18 06:10 Triglycerides 116 mg/dL (2-149) 06/10/18 08:07 Cholesterol 216 mg/dL (50-199) H 06/10/18 08:07 LDL Cholesterol Direct 150 mg/dL (50-130) H 06/10/18 08:07 HDL Cholesterol 62 mg/dL (40-59) H 06/10/18 08:07 Cholesterol/HDL Ratio 3.48 % 06/10/18 08:07 Urine Color Yellow (Yellow) 06/10/18 Unknown Urine Turbidity Cloudy (Clear) 06/10/18 Unknown Urine pH 5.0 (5.0-7.0) 06/10/18 Unknown Ur Specific [place] 1.024 (1.003-1.030) 06/10/18 Unknown Urine Protein >500 mg/dL (Negative) 06/10/18 Unknown Urine Glucose (UA) 150 mg/dL (Negative) 06/10/18 Unknown Urine Ketones Neg mg/dL (Negative) 06/10/18 Unknown Urine Blood Mod (Negative) 06/10/18 Unknown Urine Nitrite Neg (Negative) 06/10/18 Unknown Urine Bilirubin Neg (Negative) 06/10/18 Unknown Urine Urobilinogen < 2.0 mg/dL (<2.0) 06/10/18 Unknown Ur Leukocyte Esterase Neg (Negative) 06/10/18 Unknown Urine WBC (Auto) 5.0 /HPF (0.0-6.0) 06/10/18 Unknown Urine RBC (Auto) > 182.0 /HPF (0.0-6.0) 06/10/18 Unknown U Epithel Cells (Auto) < 1.0 /HPF (0-13.0) 06/10/18 Unknown Hyaline Casts 4 /LPF 06/10/18 Unknown Urine Mucus Few /HPF 06/10/18 Unknown Hep Bs Antigen Non-reactive (Negative) 06/14/18 14:34 Hepatitis C Antibody Non-reactive (NonReactive) 06/14/18 14:34 HIV 1&2 Antibody Rapid Non react (Non React) 06/14/18 14:34 HIV P24 Antigen Non react (Non React) 06/14/18 14:34
[2018-06-19 07:58] LABS: Calcium 9.1 mg/dL (8.4-10.2)
[2018-06-19] MEDS: HumaLOG SUB-Q SCH ×4 (08:02→21:13)
[2018-06-19] MEDS: IMDUR PO SCH (10:07)
[2018-06-19] MEDS: BABY ASPIRIN PO SCH (10:08)
[2018-06-19] MEDS: NORVASC PO SCH (10:08)
[2018-06-19] MEDS: SODIUM CHLORIDE FLUSH SYRINGE 10 ML IV SCH ×2 (10:08→21:13)
[2018-06-19] MEDS: LOPRESSOR PO SCH ×2 (10:08→21:11)
[2018-06-19] MEDS: HEPARIN SUB-Q SCH ×2 (10:08→21:11)
--- NOTE | 2018-06-19 11:59 | Progress Note ---
Assessment and Plan Acute Kidney Injury on underlying Chronic Kidney Disease secondary to Diabetic Nephropathy and Hypertensive Nephrosclerosis vs progression of CKD : - stable kidney function - Exact SCr baseline unknown - Ok to be d/c home from nephrology standpoint once medically cleared and lifevest arrives per cardiology recs. Pt will need to follow up with our nephrology practice ([facility]) within 1 week for further renal management - Renal US showed bilateral non-obstructing renal calculi - Obtain daily weights - Latif Catheter: No Acute on Chronic Systolic Congestive Heart Failure: - LVEF 20-25% - Negative MPI - Cardiology awaiting Lifevest prior to discharge home - Lasix as needed Essential Hypertension: - Monitor on current regimen - Adjust meds as needed Diabetes Mellitus Type 2 non-insulin dependent: - As per primary team will sign off, please reconsult if needed Subjective Date of service: 06/19/18 Principal diagnosis: HF; HTN Interval history: denies acute issues, comfortable, requesting to go home Objective - Vital Signs Vital signs: Vital Signs - 12hr 06/19/18 06/19/18 06/19/18 00:25 01:04 05:26 Temperature 98.9 F Pulse Rate 69 80 Respiratory 18 Rate Blood Pressure 155/108 150/109 Blood Pressure 155/108 [Right] O2 Sat by Pulse 96 98 Oximetry 06/19/18 06/19/18 06/19/18 06:13 09:20 10:00 Temperature 98 F 97.9 F Pulse Rate 63 81 82 Respiratory 18 16 Rate Blood Pressure 161/117 Blood Pressure 150/109 [Right] O2 Sat by Pulse 98 99 Oximetry 06/19/18 10:07 Temperature Pulse Rate 81 Respiratory Rate Blood Pressure 161/117 Blood Pressure [Right] O2 Sat by Pulse Oximetry - General Appearance General appearance: well-developed, well-nourished, appears stated age EENT: ATNC, PERRL, mucous membranes moist Neck: no JVD, no carotid bruit Respiratory: Present: Clear to Ascultation. Absent: Rales, Ronchi Cardiology: regular, S1S2 Gastrointestinal: normoactive bowel sounds Integumentary: no rash, warm and dry Neurologic: no focal deficit, no asterixis, alert and oriented x3 Musculoskeletal: other Psychiatric: other (no edema in BLE) - Lab 06/14/18 07:05 06/19/18 07:19 Most recent lab results Calcium 9.1 mg/dL (8.4-10.2) 06/19/18 07:19 Phosphorus 2.30 mg/dL (2.5-4.5) L 06/19/18 07:19
--- NOTE | 2018-06-19 16:23 | Progress Note ---
Assessment and Plan Assessment and plan: Acute hypoxemic resp failure likely due to CHF, currently resolved Acute CHF exac - Systolic ejection fraction of 18% on stress test - Echo was done and EF of 20-25% - Patient is currently euvolemic, Lasix discontinued - patient need lifevest and pending to get it, patient is uninsured HTN. Patient had adverse reaction to hydralazine will use clonidine, Lopressor and amlodipine hesitant for nathan/arb in view of renal sufficiency. Therefore d/ c lisinopril. DM II. Cont accuchecks and SSI Acute on chronic kidney disease- Lasix discontinued, patient is euvolemic, discussed with nephrology and is okay with Lasix if needed. nephrology following. Creatinine is trending down. DVT prophylaxis - On heparin Disposition - Pending lifevest. History Interval history: Patient was seen and evaluated, patient was breathing comfortably on room air, no leg swelling. Hospitalist Physical - Physical exam Narrative exam: Not in cardiopulmonary distress. The patient is obese. Vital signs as documented. Head exam is unremarkable. No scleral icterus . Neck is without jugular venous distension, thyromegaly, or carotid bruits. Lungs are clear to auscultation. Cardiac exam reveals regular rate and Rhythm. First and second heart sounds normal. No murmurs, rubs or gallops. Abdominal exam reveals normal bowel sounds, no masses, no organomegaly and no aortic enlargement. Extremities are nonedematous and both femoral and pedal pulses are normal. 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 No focal weakness. - Constitutional Vitals: Temp Pulse Resp BP Pulse Ox 97.9 F 81 16 161/117 99 06/19/18 09:20 06/19/18 10:07 06/19/18 09:20 06/19/18 10:07 06/19/18 09:20 General appearance: Present: no acute distress, well-nourished Results - Labs CBC & Chem 7: 06/14/18 07:05 06/19/18 07:19 Labs: Laboratory Last Values WBC 9.9 K/mm3 (4.5-11.0) 06/14/18 07:05 RBC 5.24 M/mm3 (3.65-5.03) H 06/14/18 07:05 Hgb 16.5 gm/dl (11.8-15.2) H 06/14/18 07:05 Hct 48.7 % (35.5-45.6) H 06/14/18 07:05 MCV 93 fl (84-94) 06/14/18 07:05 MCH 31 pg (28-32) 06/14/18 07:05 MCHC 34 % (32-34) 06/14/18 07:05 RDW 14.0 % (13.2-15.2) 06/14/18 07:05 Plt Count 246 K/mm3 (140-440) 06/14/18 07:05 Lymph % (Auto) 20.1 % (13.4-35.0) 06/14/18 07:05 [place] % (Auto) 8.2 % (0.0-7.3) H 06/14/18 07:05 Eos % (Auto) 3.5 % (0.0-4.3) 06/14/18 07:05 Baso % (Auto) 1.1 % (0.0-1.8) 06/14/18 07:05 Lymph # 2.0 K/mm3 (1.2-5.4) 06/14/18 07:05 [place] # 0.8 K/mm3 (0.0-0.8) 06/14/18 07:05 Eos # 0.3 K/mm3 (0.0-0.4) 06/14/18 07:05 Baso # 0.1 K/mm3 (0.0-0.1) 06/14/18 07:05 Seg Neutrophils % 67.1 % (40.0-70.0) 06/14/18 07:05 Seg Neutrophils # 6.6 K/mm3 (1.8-7.7) 06/14/18 07:05 D-Dimer 472.45 ng/mlDDU (0-234) H 06/10/18 09:45 Sodium 137 mmol/L (137-145) 06/19/18 07:19 Potassium 4.0 mmol/L (3.6-5.0) 06/19/18 07:19 Chloride 99.7 mmol/L (98-107) 06/19/18 07:19 Carbon Dioxide 25 mmol/L (22-30) 06/19/18 07:19 Anion Gap 16 mmol/L 06/19/18 07:19 BUN 28 mg/dL (9-20) H 06/19/18 07:19 Creatinine 2.4 mg/dL (0.8-1.5) H 06/19/18 07:19 Estimated GFR 36 ml/min 06/19/18 07:19 BUN/Creatinine Ratio 12 % 06/19/18 07:19 Glucose 130 mg/dL (75-100) H 06/19/18 07:19 POC Glucose 141 (70-105) H 06/19/18 12:12 Hemoglobin A1c 6.3 % (4-6) H 06/10/18 08:07 Calcium 9.1 mg/dL (8.4-10.2) 06/19/18 07:19 Phosphorus 2.30 mg/dL (2.5-4.5) L 06/19/18 07:19 Total Bilirubin 0.70 mg/dL (0.1-1.2) 06/12/18 06:10 Direct Bilirubin < 0.2 mg/dL (0-0.2) 06/10/18 08:07 Indirect Bilirubin 0.5 mg/dL 06/10/18 08:07 AST 12 units/L (5-40) 06/12/18 06:10 ALT 8 units/L (7-56) 06/12/18 06:10 Alkaline Phosphatase 57 units/L (35-129) 06/12/18 06:10 Troponin T 0.053 ng/mL (0.00-0.029) H D 06/11/18 09:22 NT-Pro-B Natriuret Pep 3638 pg/mL (0-450) H 06/10/18 08:07 Serum Total Protein See scanned report 06/14/18 14:34 Total Protein 7.3 g/dL (6.3-8.2) 06/12/18 06:10 Albumin See scanned report 06/14/18 14:34 Albumin/Globulin Ratio 1.0 % 06/12/18 06:10 Zhans-7-Cchpyrsjy See scanned report 06/14/18 14:34 Ahtja-6-Yhhpxnkap See scanned report 06/14/18 14:34 Beta Globulins See scanned report 06/14/18 14:34 Gamma Globulins See scanned report 06/14/18 14:34 Abnorm Protein Band 1 See scanned report 06/14/18 14:34 Abnorm Protein Band 2 See scanned report 06/14/18 14:34 Abnorm Protein Band 3 See scanned report 06/14/18 14:34 PEP Interpretation See scanned report 06/14/18 14:34 Triglycerides 116 mg/dL (2-149) 06/10/18 08:07 Cholesterol 216 mg/dL (50-199) H 06/10/18 08:07 LDL Cholesterol Direct 150 mg/dL (50-130) H 06/10/18 08:07 HDL Cholesterol 62 mg/dL (40-59) H 06/10/18 08:07 Cholesterol/HDL Ratio 3.48 % 06/10/18 08:07 Urine Color Yellow (Yellow) 06/10/18 Unknown Urine Turbidity Cloudy (Clear) 06/10/18 Unknown Urine pH 5.0 (5.0-7.0) 06/10/18 Unknown Ur Specific [place] 1.024 (1.003-1.030) 06/10/18 Unknown Urine Protein >500 mg/dL (Negative) 06/10/18 Unknown Urine Glucose (UA) 150 mg/dL (Negative) 06/10/18 Unknown Urine Ketones Neg mg/dL (Negative) 06/10/18 Unknown Urine Blood Mod (Negative) 06/10/18 Unknown Urine Nitrite Neg (Negative) 06/10/18 Unknown Urine Bilirubin Neg (Negative) 06/10/18 Unknown Urine Urobilinogen < 2.0 mg/dL (<2.0) 06/10/18 Unknown Ur Leukocyte Esterase Neg (Negative) 06/10/18 Unknown Urine WBC (Auto) 5.0 /HPF (0.0-6.0) 06/10/18 Unknown Urine RBC (Auto) > 182.0 /HPF (0.0-6.0) 06/10/18 Unknown U Epithel Cells (Auto) < 1.0 /HPF (0-13.0) 06/10/18 Unknown Hyaline Casts 4 /LPF 06/10/18 Unknown Urine Mucus Few /HPF 06/10/18 Unknown AMAYA Screen See scanned report 06/14/18 14:34 Proteinase 3 (PR3) Ab See scanned report 06/14/18 14:34 Myeloperoxidase Ab See scanned report 06/14/18 14:34 Glomerular Base Mem IgG See scanned report 06/14/18 14:34 Complement C3 See scanned report 06/14/18 14:34 Complement C4 See scanned report 06/14/18 14:34 Tot Complement (CH50) See scanned report 06/14/18 14:34 Hep Bs Antigen Non-reactive (Negative) 06/14/18 14:34 Hepatitis C Antibody Non-reactive (NonReactive) 06/14/18 14:34 HIV 1&2 Antibody Rapid Non react (Non React) 06/14/18 14:34 HIV P24 Antigen Non react (Non React) 06/14/18 14:34
[2018-06-20] MEDS: HumaLOG SUB-Q SCH ×5 (07:30→16:42)
[2018-06-20 09:11] LABS: Calcium 8.9 mg/dL (8.4-10.2)
[2018-06-20] MEDS ORDERED: APRESOLINE PO SCH (10:00)
[2018-06-20] MEDS: HEPARIN SUB-Q SCH ×2 (10:22→23:04)
[2018-06-20] MEDS: BABY ASPIRIN PO SCH (10:23)
[2018-06-20] MEDS: IMDUR PO SCH (10:23)
[2018-06-20] MEDS: LOPRESSOR PO SCH ×2 (10:23→23:03)
[2018-06-20] MEDS: NORVASC PO SCH (10:24)
[2018-06-20] MEDS: SODIUM CHLORIDE FLUSH SYRINGE 10 ML IV SCH ×2 (10:25→23:04)
--- NOTE | 2018-06-20 17:15 | Progress Note ---
Assessment and Plan Assessment and plan: Acute hypoxemic resp failure likely due to CHF, currently resolved Acute CHF exac - Systolic ejection fraction of 18% on stress test - Echo was done and EF of 20-25% - Patient is currently euvolemic, Lasix discontinued - patient need lifevest and pending to get it, patient is uninsured HTN. Patient had adverse reaction to hydralazine will use clonidine, Lopressor and amlodipine hesitant for nathan/arb in view of renal sufficiency. Therefore d/ c lisinopril. DM II. Cont accuchecks and SSI Acute on chronic kidney disease- Lasix discontinued, patient is euvolemic, discussed with nephrology and is okay with Lasix if needed. nephrology following. Creatinine is trending down. DVT prophylaxis - On heparin Disposition - Pending lifevest. History Interval history: Patient was seen and evaluated, patient was breathing comfortably on room air, no leg swelling. Hospitalist Physical - Physical exam Narrative exam: Not in cardiopulmonary distress. The patient is obese. Vital signs as documented. Head exam is unremarkable. No scleral icterus . Neck is without jugular venous distension, thyromegaly, or carotid bruits. Lungs are clear to auscultation. Cardiac exam reveals regular rate and Rhythm. First and second heart sounds normal. No murmurs, rubs or gallops. Abdominal exam reveals normal bowel sounds, no masses, no organomegaly and no aortic enlargement. Extremities are nonedematous and both femoral and pedal pulses are normal. 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 No focal weakness. - Constitutional Vitals: Temp Pulse Resp BP Pulse Ox 98.0 F 68 20 150/106 95 06/20/18 15:38 06/20/18 11:13 06/20/18 15:38 06/20/18 15:38 06/20/18 11:13 General appearance: Present: no acute distress, well-nourished Results - Labs CBC & Chem 7: 06/14/18 07:05 06/20/18 07:26 Labs: Laboratory Last Values WBC 9.9 K/mm3 (4.5-11.0) 06/14/18 07:05 RBC 5.24 M/mm3 (3.65-5.03) H 06/14/18 07:05 Hgb 16.5 gm/dl (11.8-15.2) H 06/14/18 07:05 Hct 48.7 % (35.5-45.6) H 06/14/18 07:05 MCV 93 fl (84-94) 06/14/18 07:05 MCH 31 pg (28-32) 06/14/18 07:05 MCHC 34 % (32-34) 06/14/18 07:05 RDW 14.0 % (13.2-15.2) 06/14/18 07:05 Plt Count 246 K/mm3 (140-440) 06/14/18 07:05 Lymph % (Auto) 20.1 % (13.4-35.0) 06/14/18 07:05 [place] % (Auto) 8.2 % (0.0-7.3) H 06/14/18 07:05 Eos % (Auto) 3.5 % (0.0-4.3) 06/14/18 07:05 Baso % (Auto) 1.1 % (0.0-1.8) 06/14/18 07:05 Lymph # 2.0 K/mm3 (1.2-5.4) 06/14/18 07:05 [place] # 0.8 K/mm3 (0.0-0.8) 06/14/18 07:05 Eos # 0.3 K/mm3 (0.0-0.4) 06/14/18 07:05 Baso # 0.1 K/mm3 (0.0-0.1) 06/14/18 07:05 Seg Neutrophils % 67.1 % (40.0-70.0) 06/14/18 07:05 Seg Neutrophils # 6.6 K/mm3 (1.8-7.7) 06/14/18 07:05 D-Dimer 472.45 ng/mlDDU (0-234) H 06/10/18 09:45 Sodium 139 mmol/L (137-145) 06/20/18 07:26 Potassium 3.7 mmol/L (3.6-5.0) 06/20/18 07:26 Chloride 100.3 mmol/L (98-107) 06/20/18 07:26 Carbon Dioxide 23 mmol/L (22-30) 06/20/18 07:26 Anion Gap 19 mmol/L 06/20/18 07:26 BUN 29 mg/dL (9-20) H 06/20/18 07:26 Creatinine 2.5 mg/dL (0.8-1.5) H 06/20/18 07:26 Estimated GFR 34 ml/min 06/20/18 07:26 BUN/Creatinine Ratio 12 % 06/20/18 07:26 Glucose 147 mg/dL (75-100) H 06/20/18 07:26 POC Glucose 90 (70-105) 06/20/18 15:51 Hemoglobin A1c 6.3 % (4-6) H 06/10/18 08:07 Calcium 8.9 mg/dL (8.4-10.2) 06/20/18 07:26 Phosphorus 2.30 mg/dL (2.5-4.5) L 06/19/18 07:19 Total Bilirubin 0.70 mg/dL (0.1-1.2) 06/12/18 06:10 Direct Bilirubin < 0.2 mg/dL (0-0.2) 06/10/18 08:07 Indirect Bilirubin 0.5 mg/dL 06/10/18 08:07 AST 12 units/L (5-40) 06/12/18 06:10 ALT 8 units/L (7-56) 06/12/18 06:10 Alkaline Phosphatase 57 units/L (35-129) 06/12/18 06:10 Troponin T 0.053 ng/mL (0.00-0.029) H D 06/11/18 09:22 NT-Pro-B Natriuret Pep 3638 pg/mL (0-450) H 06/10/18 08:07 Serum Total Protein See scanned report 06/14/18 14:34 Total Protein 7.3 g/dL (6.3-8.2) 06/12/18 06:10 Albumin See scanned report 06/14/18 14:34 Albumin/Globulin Ratio 1.0 % 06/12/18 06:10 Fssvo-4-Ewcbhhcds See scanned report 06/14/18 14:34 Vylze-3-Ksclntlpo See scanned report 06/14/18 14:34 Beta Globulins See scanned report 06/14/18 14:34 Gamma Globulins See scanned report 06/14/18 14:34 Abnorm Protein Band 1 See scanned report 06/14/18 14:34 Abnorm Protein Band 2 See scanned report 06/14/18 14:34 Abnorm Protein Band 3 See scanned report 06/14/18 14:34 PEP Interpretation See scanned report 06/14/18 14:34 Triglycerides 116 mg/dL (2-149) 06/10/18 08:07 Cholesterol 216 mg/dL (50-199) H 06/10/18 08:07 LDL Cholesterol Direct 150 mg/dL (50-130) H 06/10/18 08:07 HDL Cholesterol 62 mg/dL (40-59) H 06/10/18 08:07 Cholesterol/HDL Ratio 3.48 % 06/10/18 08:07 Urine Color Yellow (Yellow) 06/10/18 Unknown Urine Turbidity Cloudy (Clear) 06/10/18 Unknown Urine pH 5.0 (5.0-7.0) 06/10/18 Unknown Ur Specific [place] 1.024 (1.003-1.030) 06/10/18 Unknown Urine Protein >500 mg/dL (Negative) 06/10/18 Unknown Urine Glucose (UA) 150 mg/dL (Negative) 06/10/18 Unknown Urine Ketones Neg mg/dL (Negative) 06/10/18 Unknown Urine Blood Mod (Negative) 06/10/18 Unknown Urine Nitrite Neg (Negative) 06/10/18 Unknown Urine Bilirubin Neg (Negative) 06/10/18 Unknown Urine Urobilinogen < 2.0 mg/dL (<2.0) 06/10/18 Unknown Ur Leukocyte Esterase Neg (Negative) 06/10/18 Unknown Urine WBC (Auto) 5.0 /HPF (0.0-6.0) 06/10/18 Unknown Urine RBC (Auto) > 182.0 /HPF (0.0-6.0) 06/10/18 Unknown U Epithel Cells (Auto) < 1.0 /HPF (0-13.0) 06/10/18 Unknown Hyaline Casts 4 /LPF 06/10/18 Unknown Urine Mucus Few /HPF 06/10/18 Unknown AMAYA Screen See scanned report 06/14/18 14:34 Proteinase 3 (PR3) Ab See scanned report 06/14/18 14:34 Myeloperoxidase Ab See scanned report 06/14/18 14:34 Glomerular Base Mem IgG See scanned report 06/14/18 14:34 Complement C3 See scanned report 06/14/18 14:34 Complement C4 See scanned report 06/14/18 14:34 Tot Complement (CH50) See scanned report 06/14/18 14:34 Hep Bs Antigen Non-reactive (Negative) 06/14/18 14:34 Hepatitis C Antibody Non-reactive (NonReactive) 06/14/18 14:34 HIV 1&2 Antibody Rapid Non react (Non React) 06/14/18 14:34 HIV P24 Antigen Non react (Non React) 06/14/18 14:34
[2018-06-21] MEDS: HumaLOG SUB-Q SCH (07:30)
--- NOTE | 2018-06-21 10:07 | Discharge Summary ---
Providers - Providers Date of Admission: 06/10/18 15:04 Attending physician: CAROL MARK MD 06/10/18 Consult to Cardiac Rehabilitation [CONS] Routine Reason For Exam: Phase I 06/10/18 15:04 Consult to Cardiology [CONS] Routine Consulting Provider: JAMIE OCAMPO Reason For Exam: chf 06/13/18 09:04 Consult to Physician [CONS] Routine Comment: Consulting Provider: DIAMOND SEVERINO Physician Instructions: Reason For Exam: Acute on CKD Primary care physician: CASH ROOM CLERK Hospitalization Reason for admission: acute systolic CHF Condition: Stable Pertinent studies: Echo EF 20-25% Cardiac Stress test for acute ischemia Hospital course: 47 YO Male with HTN, DM, Obesity, Metabolic Syndrome, Medication Noncompliance presents to ED for evaluation. Pt states that he has experienced fatigue, weaknes, and shortness of breath for the past 2 weeks with worsening symptoms over the past 1 week. Pt states that he ran our of all his medication 5 weeks ago. Pt denies compliance with cardiac and diabetic diet restrictions. Pt acknowledges Orthopnea/PND, decreased exercise tolerance. Pt also acknowledges chest discomfort with deep breathing. Pt denies fever, chills, CP, Palpitations , NVD, Syncope, Trauma, Unilateral leg swelling, calf pain, productive cough, BRBPR, unintentional weight loss, prolonged travel/immobility, individual/ family history of DVT/PE, or recent ill contacts. Pt seen and evaluated in ED and found to have CHF, hypertensive emergency, and acute renal failure. Pt admitted to telemetry. Cardiology consulted in ED. Cardiology Recommendations: Acute on chronic systolic heart failure - nearing/at euvolemia CMP - EF 20-25%; presumably nonischemic given lexiscan MPI stress test negative for ischemia Acute on chronic renal insufficiency HTN Noncompliance Non-ST elevation [place] type II Diabetes Obesity Plan: Currently stable cardiac status. Cont present cardiac regimen. No diuretics or ACEI/ARB at this time in setting of renal insufficiency. Await LifeVest placement. Pending LifeVest placement, pt may discharge home from cardiology standpoint. Follow up in our [place] office with Dr. Luna on 06/19/2018 @ 2:30PM. Patient was supposed to have lifevest and was not approved, the copay was too expensive and declined lefe vest and discharged home. Appropriate medications were given. Patient is scheduled to see cardiology and nephrology in the clinic. Disposition: DC-01 TO HOME OR SELFCARE Time spent for discharge: 32 minutes - Discharge Diagnoses (1) Acute systolic CHF (congestive heart failure) Status: Acute (2) [place] (acute kidney injury) Status: Acute (3) CHF (congestive heart failure) Status: Acute Qualifiers: Heart failure type: systolic Heart failure chronicity: acute Qualified Code(s): I50.21 - Acute systolic (congestive) heart failure Core Measure Documentation - Palliative Care Palliative Care/ Comfort Measures: Not Applicable - Core Measures Any of the following diagnoses?: heart failure - Heart Failure Discharge Requirements PAULO/ARB for LVSD if EF <40%: No Reason for no PAULO/ARB: Renal impairment Beta andreas at discharge: Yes Exam - Physical Exam Narrative exam: Not in cardiopulmonary distress. The patient is obese. Vital signs as documented. Head exam is unremarkable. No scleral icterus . Neck is without jugular venous distension, thyromegaly, or carotid bruits. Lungs are clear to auscultation. Cardiac exam reveals regular rate and Rhythm. First and second heart sounds normal. No murmurs, rubs or gallops. Abdominal exam reveals normal bowel sounds, no masses, no organomegaly and no aortic enlargement. Extremities are nonedematous and both femoral and pedal pulses are normal. LCPC: Alert and oriented 3. No focal weakness. - Constitutional Vitals: Temp Pulse Resp BP Pulse Ox 98.7 F 79 20 149/100 97 06/21/18 07:32 06/21/18 07:32 06/21/18 07:32 06/21/18 07:32 06/21/18 07:32 Plan Activity: no restrictions Weight Bearing Status: Full Weight Bearing Diet: low cholesterol, low salt Additional Instructions: follow up at [facility] in 1-2 weeks Follow up with: YUNIEL AYALA MD [Staff Physician] - 7 Days ([place] office, 06/21/2018 @ 1: 30PM) CECILIA GROVE MD [Primary Care Provider] - 3-5 Days Prescriptions: AtorvaSTATin [Lipitor] 20 mg PO QHS #30 tablet amLODIPine [Norvasc] 10 mg PO QDAY #30 tablet Aspirin [Aspirin BABY CHEW TAB] 81 mg PO QDAY #30 tab.chew cloNIDine [Catapres] 0.1 mg PO Q12HR #60 tablet glipiZIDE [Glipizide] 5 mg PO DAILY #30 tablet ISOSORBIDE MONOnitrate [Imdur ER] 30 mg PO QDAY #30 tablet Metoprolol [Lopressor TAB] 100 mg PO BID #60 tablet
[2018-06-21 10:19] LABS: ANA Screen, IFA Negative (Negative); Albumin 3.5 g/dL (3.8-4.8); Gamma Globulin 1.5 g/dL (0.8-1.7); Myeloperoxidase Antibody <1.0 AI (<1.0)
[2018-06-21] MEDS: BABY ASPIRIN PO SCH (11:02)
[2018-06-21] MEDS: LOPRESSOR PO SCH (11:02)
[2018-06-21] MEDS: NORVASC PO SCH (11:03)
[2018-06-21] MEDS: HEPARIN SUB-Q SCH ×2 (11:04→11:11)
[2018-06-21] MEDS: IMDUR PO SCH (11:04)
[2018-06-21] MEDS: SODIUM CHLORIDE FLUSH SYRINGE 10 ML IV SCH (11:12)
[2018-06-21 17:17] VITALS: BP 142/91
== END 2018-06-21 18:04 | disposition home or self-care (01) | DRG 280 ==
LOC: ED 07:47 → 4A 15:04
PROVIDERS: ADMIT Internal Medicine; ATTEND Internal Medicine
DX: I21.A1 Myocardial infarction type 2 (principal); N17.0 Acute kidney failure with tubular necrosis; J96.01 Acute respiratory failure with hypoxia; I50.23 Acute on chronic systolic (congestive) heart failure; I16.1 Hypertensive emergency; I42.9 Cardiomyopathy, unspecified; I13.0 Hypertensive heart and chronic kidney disease with heart failure and stage 1 through stage 4 chronic kidney disease, or unspecified chronic kidney disease; N18.9 Chronic kidney disease, unspecified; E66.9 Obesity, unspecified; E88.81 Metabolic syndrome and other insulin resistance; E11.21 Type 2 diabetes mellitus with diabetic nephropathy; Z79.82 Long term (current) use of aspirin; Z68.35 Body mass index [BMI] 35.0-35.9, adult; Z91.14 Patient's other noncompliance with medication regimen
CPT/HCPCS: 36415; 74022; 74176; 76770; 78452; 78582; 80048; 80053; 80061; 80074; 81001; 82962; 83036; 83520; 83880; 84100; 84165; 84484; 85025; 85379; 86021; 86038; 86160; 86162; 86706; 86803; 87806; 93005; 93010; 93017; 93306; 94640; A9270-GY; A9502; A9540; A9558; J1644; J1815; J1940; J2405; J2785

== ENCOUNTER 2018-12-05 08:38 | Outpatient (CLI) | payer SELFPAY ==
[2018-12-05 09:11] LABS: Basophils # (Auto) 0.1 K/mm3 (0.0-0.1); Basophils % (Auto) 0.7 % (0.0-1.8); Eosinophils # (Auto) 0.2 K/mm3 (0.0-0.4); Eosinophils % (Auto) 1.5 % (0.0-4.3); Hemoglobin 13.7 gm/dl (11.8-15.2); Lymphocytes # (Auto) 1.4 K/mm3 (1.2-5.4); Lymphocytes % (Auto) 13.6 % (13.4-35.0); Mean Corpuscular HGB Conc 34 % (32-34); Mean Corpuscular Volume 95 fl (84-94); Monocytes # (Auto) 0.6 K/mm3 (0.0-0.8); Monocytes % (Auto) 5.9 % (0.0-7.3); Platelet Count 227 K/mm3 (140-440); Red Blood Count 4.22 M/mm3 (3.65-5.03); Red Cell Distribution Width 13.3 % (13.2-15.2)
[2018-12-05 09:18] LABS: Albumin 3.3 g/dL (3.9-5); Calcium 8.5 mg/dL (8.4-10.2)
== END 2018-12-05 08:39 | disposition home or self-care (01) ==
LOC: LAB 08:38
PROVIDERS: ATTEND Internal Medicine
DX: L94.4 Gottron's papules (principal); I13.0 Hypertensive heart and chronic kidney disease with heart failure and stage 1 through stage 4 chronic kidney disease, or unspecified chronic kidney disease; E11.22 Type 2 diabetes mellitus with diabetic chronic kidney disease; N18.9 Chronic kidney disease, unspecified; I50.21 Acute systolic (congestive) heart failure; E78.5 Hyperlipidemia, unspecified; E78.00 Pure hypercholesterolemia, unspecified
CPT/HCPCS: 36415; 80048; 82040; 84100; 85025

== ENCOUNTER 2019-08-02 09:39 | Emergency (ER) | payer MEDICAID ==
[2019-08-02 09:52] VITALS: BP 138/99
[2019-08-02 10:22] LABS: Basophils # (Auto) 0.1 K/mm3 (0.0-0.1); Basophils % (Auto) 0.8 % (0.0-1.8); Eosinophils # (Auto) 0.3 K/mm3 (0.0-0.4); Eosinophils % (Auto) 2.4 % (0.0-4.3); Hematocrit 41.9 % (35.5-45.6); Hemoglobin 14.5 gm/dl (11.8-15.2); Lymphocytes # (Auto) 2.1 K/mm3 (1.2-5.4); Lymphocytes % (Auto) 17.6 % (13.4-35.0); Mean Corpuscular HGB Conc 35 % (32-34); Mean Corpuscular Volume 91 fl (84-94); Monocytes # (Auto) 0.8 K/mm3 (0.0-0.8); Monocytes % (Auto) 6.4 % (0.0-7.3); Platelet Count 316 K/mm3 (140-440); Red Blood Count 4.61 M/mm3 (3.65-5.03); Red Cell Distribution Width 13.5 % (13.2-15.2)
[2019-08-02 10:44] LABS: BUN/Creatinine Ratio 9; Blood Urea Nitrogen 26 mg/dL (9-20); Calcium 9.1 mg/dL (8.4-10.2); Hemolysis Index 6
--- NOTE | 2019-08-02 11:19 | XRay Report ---
CHEST 2 VIEWS INDICATION: Chest Pain. COMPARISON: 11/20/2018. FINDINGS: Support devices: None. Heart: Within normal limits. Lungs/Pleura: No acute air space or interstitial disease. No significant pleural effusion. IMPRESSION: No acute findings. Signer Name: Wayne Orellana MD Signed: 08/02/2019 11:15 AM Workstation Name: [id number]
[2019-08-02] MEDS ORDERED: NACL 0.9% 1000 ML 1,000 ML IV ONE (11:22)
--- NOTE | 2019-08-02 14:08 | Emergency Department Report ---
ED General Adult HPI - General Chief complaint: Chest Pain Stated complaint: CHEST PAIN/SOB Time Seen by Provider: 08/02/19 10:24 Source: patient Mode of arrival: Ambulatory Limitations: No Limitations - History of Present Illness Initial comments: Patient is a 49-year-old -[place] male with a past medical history of congestive heart failure diabetes hypertension who is presenting today with episode of chest discomfort and shortness of breath. Patient states last night around 9 PM he started having some crampy right sided chest discomfort. Patient states that this was constant last night. The chest discomfort has improved. Patient states that he is continued to have some shortness of breath. Patient states that he feels as though it takes about 5 breaths before he gets enough oxygen. Patient states he does have some discomfort with breathing. He denies cough nausea vomiting diarrhea or noncompliance with medications. The patient does take a diuretic for his congestive heart failure. Patient states he had a stress test within the last year. - Related Data Previous Rx's Medication Instructions Recorded Last Taken Type Aspirin [Aspirin BABY CHEW TAB] 81 mg PO QDAY #30 tab.chew 06/21/18 Unknown Rx ISOSORBIDE MONOnitrate [Imdur ER] 30 mg PO QDAY #30 tablet 06/21/18 Unknown Rx Famotidine [Pepcid] 20 mg PO BID #14 tablet 11/22/18 Unknown Rx cloNIDine [Catapres] 0.2 mg PO BID #60 tablet 11/22/18 Unknown Rx diphenhydrAMINE [Benadryl CAP] 25 mg PO Q8HR #10 capsule 11/22/18 Unknown Rx predniSONE [Deltasone] 10 mg PO QDAY #3 tab 11/22/18 Unknown Rx Insulin NPH/Regular [NovoLIN 70/30] 20 unit SUB-Q BIDDIAB #1 vial 11/23/18 Unknown Rx amLODIPine [Norvasc] 5 mg PO QDAY #30 tablet 11/23/18 Unknown Rx Allergies Allergy/AdvReac Type Severity Reaction Status Date / Time hydralazine [Hydralazine] Allergy Shortness Verified 11/20/18 11:04 of Breath ED Review of Systems ROS: Stated complaint: CHEST PAIN/SOB Other details as noted in HPI Comment: All other systems reviewed and negative ED Past Medical Hx - Past Medical History Previous Medical History?: Yes Hx Hypertension: Yes Hx Congestive Heart Failure: Yes Hx Diabetes: Yes Hx Asthma: No Hx COPD: No Hx HIV: No - Surgical History Past Surgical History?: No - Social History Smoking Status: Never Smoker Substance Use Type: None - Medications Home Medications: Home Medications Medication Instructions Recorded Confirmed Last Taken Type Aspirin [Aspirin BABY CHEW TAB] 81 mg PO QDAY #30 tab.chew 06/21/18 11/20/18 Unknown Rx ISOSORBIDE MONOnitrate [Imdur ER] 30 mg PO QDAY #30 tablet 06/21/18 11/20/18 Unknown Rx Famotidine [Pepcid] 20 mg PO BID #14 tablet 11/22/18 Unknown Rx cloNIDine [Catapres] 0.2 mg PO BID #60 tablet 11/22/18 Unknown Rx diphenhydrAMINE [Benadryl CAP] 25 mg PO Q8HR #10 capsule 11/22/18 Unknown Rx predniSONE [Deltasone] 10 mg PO QDAY #3 tab 11/22/18 Unknown Rx Insulin NPH/Regular [NovoLIN 70/30] 20 unit SUB-Q BIDDIAB #1 vial 11/23/18 Unknown Rx amLODIPine [Norvasc] 5 mg PO QDAY #30 tablet 11/23/18 Unknown Rx ED Physical Exam - General Limitations: No Limitations General appearance: alert, in no apparent distress - Head Head exam: Present: atraumatic, normocephalic - Eye Eye exam: Present: normal appearance, PERRL, EOMI - ENT ENT exam: Present: mucous membranes moist - Neck Neck exam: Present: normal inspection - Respiratory Respiratory exam: Present: normal lung sounds bilaterally. Absent: respiratory distress, wheezes, rales, rhonchi, chest wall tenderness - Cardiovascular Cardiovascular Exam: Present: regular rate, normal rhythm, normal heart sounds. Absent: systolic murmur, diastolic murmur, rubs, gallop - GI/Abdominal GI/Abdominal exam: Present: soft, normal bowel sounds. Absent: distended, te nderness, guarding, rebound - Rectal Rectal exam: Present: deferred - Extremities Exam Extremities exam: Present: normal inspection - Back Exam Back exam: Present: normal inspection - Neurological Exam Neurological exam: Present: alert, oriented X3 - Psychiatric Psychiatric exam: Present: normal affect, normal mood - Skin Skin exam: Present: warm, dry, intact, normal color. Absent: rash ED Course Vital Signs 08/02/19 09:51 Temperature 98.5 F Pulse Rate 86 Respiratory 18 Rate Blood Pressure 138/99 [Left] O2 Sat by Pulse 97 Oximetry ED Medical Decision Making - Lab Data Result diagrams: 08/02/19 10:10 08/02/19 10:10 Lab Results 08/02/19 08/02/19 08/02/19 Range/Units 10:10 10:10 10:10 WBC 11.8 H (4.5-11.0) K/mm3 RBC 4.61 (3.65-5.03) M/mm3 Hgb 14.5 (11.8-15.2) gm/dl Hct 41.9 (35.5-45.6) % MCV 91 (84-94) fl MCH 31 (28-32) pg MCHC 35 H (32-34) % RDW 13.5 (13.2-15.2) % Plt Count 316 (140-440) K/mm3 Lymph % (Auto) 17.6 (13.4-35.0) % [place] % (Auto) 6.4 (0.0-7.3) % Eos % (Auto) 2.4 (0.0-4.3) % Baso % (Auto) 0.8 (0.0-1.8) % Lymph # 2.1 (1.2-5.4) K/mm3 [place] # 0.8 (0.0-0.8) K/mm3 Eos # 0.3 (0.0-0.4) K/mm3 Baso # 0.1 (0.0-0.1) K/mm3 Seg Neutrophils % 72.8 H (40.0-70.0) % Seg Neutrophils # 8.6 H (1.8-7.7) K/mm3 D-Dimer (0-234) ng/mlDDU Sodium 133 L (137-145) mmol/L Potassium 3.7 (3.6-5.0) mmol/L Chloride 93.0 L (98-107) mmol/L Carbon Dioxide 25 (22-30) mmol/L Anion Gap 19 mmol/L BUN 26 H (9-20) mg/dL Creatinine 2.9 H (0.8-1.5) mg/dL Estimated GFR 28 ml/min BUN/Creatinine Ratio 9 % Glucose 342 H (75-100) mg/dL Calcium 9.1 (8.4-10.2) mg/dL Troponin T < 0.010 (0.00-0.029) ng/mL NT-Pro-B Natriuret Pep 95.54 (0-450) pg/mL 08/02/19 08/02/19 Range/Units 10:35 13:12 WBC (4.5-11.0) K/mm3 RBC (3.65-5.03) M/mm3 Hgb (11.8-15.2) gm/dl Hct (35.5-45.6) % MCV (84-94) fl MCH (28-32) pg MCHC (32-34) % RDW (13.2-15.2) % Plt Count (140-440) K/mm3 Lymph % (Auto) (13.4-35.0) % [place] % (Auto) (0.0-7.3) % Eos % (Auto) (0.0-4.3) % Baso % (Auto) (0.0-1.8) % Lymph # (1.2-5.4) K/mm3 [place] # (0.0-0.8) K/mm3 Eos # (0.0-0.4) K/mm3 Baso # (0.0-0.1) K/mm3 Seg Neutrophils % (40.0-70.0) % Seg Neutrophils # (1.8-7.7) K/mm3 D-Dimer 197.67 (0-234) ng/mlDDU Sodium (137-145) mmol/L Potassium (3.6-5.0) mmol/L Chloride (98-107) mmol/L Carbon Dioxide (22-30) mmol/L Anion Gap mmol/L BUN (9-20) mg/dL Creatinine (0.8-1.5) mg/dL Estimated GFR ml/min BUN/Creatinine Ratio % Glucose (75-100) mg/dL Calcium (8.4-10.2) mg/dL Troponin T < 0.010 (0.00-0.029) ng/mL NT-Pro-B Natriuret Pep (0-450) pg/mL - EKG Data -: EKG Interpreted by Ca EKG shows normal: sinus rhythm, axis, intervals, QRS complexes, ST-T waves Rate: normal - EKG Data Interpretation: normal EKG - Radiology Data [facility] [address] [place] [address] XRay Report Signed Patient: HARRISON PIMENTEL MR#: [id number] [birth year] : 1970 Acct:[id number] Age/Sex: 49 / M ADM Date: 08/02/19 Loc: ED Attending Dr: Ordering Physician: DONNA RUIZ MD Date of Service: 08/02/19 Procedure(s): XR chest routine 2V Accession Number(s): [id number] cc: DONNA RUIZ MD Fluoro Time In Minutes: CHEST 2 VIEWS INDICATION: Chest Pain. COMPARISON: 11/20/2018. FINDINGS: Support devices: None. Heart: Within normal limits. Lungs/Pleura: No acute air space or interstitial disease. No significant pleural effusion. IMPRESSION: No acute findings. Signer Name: Wayne Orellana MD Signed: 08/02/2019 11:15 AM Workstation Name: [id number] Transcribed By: ES Dictated By: Wayne Orellana MD Electronically Authenticated By: Wayne Orellana MD Signed Date/Time: 08/02/19 1115 - Medical Decision Making Patient is a 49-year-old [place] male who is complaining of some chest discomfort on the right side which he had last night as well as some continued shortness of breath. Patient has no cough and he states that he does have some discomfort with deep breathing. Patient's EKG is relatively within normal limits. Chest x-ray shows mild fluid overload her current abnormality. Patient has a d-dimer which is within normal limits. Patient has had 2 negative troponins. Patient is stable for discharge. 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 Patient also to follow-up with his primary care physician. Patient does show evidence of some renal insufficiency. Patient is on Lasix and shows some signs of possible dehydration as his sodium and chloride level are also both low. Patient was given 1 L IV fluids. Critical care attestation.: If time is entered above; I have spent that time in minutes in the direct care of this critically ill patient, excluding procedure time. ED Disposition Clinical Impression: Atypical chest pain, Dyspnea, Dehydration, Renal insufficiency Disposition: - TO HOME OR SELFCARE Is pt being admited?: No Does the pt Need Aspirin: No Condition: Stable Instructions: Chest Pain (ED), Dehydration (ED) Additional Instructions: Someone from cardiology doctors office should be calling you within the next 2 days to schedule an appointment. Referrals: PRIMARY CARE, [Primary Care Provider] - 3-5 Days Time of Disposition: 14:10
== END 2019-08-02 14:33 | disposition home or self-care (01) ==
LOC: ED 09:39
DX: E86.0 Dehydration (principal); R07.89 Other chest pain; N28.9 Disorder of kidney and ureter, unspecified; R06.02 Shortness of breath; I11.0 Hypertensive heart disease with heart failure; I50.9 Heart failure, unspecified; E11.9 Type 2 diabetes mellitus without complications; Z88.8 Allergy status to other drugs, medicaments and biological substances; Z79.899 Other long term (current) drug therapy
CPT/HCPCS: 36415; 71046; 80048; 83880; 84484; 85025; 85379; 93005; 93010; 96360; 99284; J7030

== ENCOUNTER 2019-10-05 05:16 | Emergency (ER) | payer MEDICAID ==
[2019-10-05] MEDS ORDERED: ONDANSETRON 4 MG/2 ML INJ IV ONE (05:32)
[2019-10-05] MEDS ORDERED: MORPHINE 4 MG/1 ML INJ IV ONE (05:32)
[2019-10-05] MEDS ORDERED: KETOROLAC 30 MG/1 ML INJ IV ONE (05:32)
[2019-10-05] MEDS ORDERED: SODIUM CHLORIDE 0.9% 1000 ML 1,000 ML IV ONE (05:32)
--- NOTE | 2019-10-05 05:34 | Event Note ---
ED Screening Note Date of service: 10/05/19 ED Screening Note: This initial assessment/diagnostic orders/clinical plan/treatment(s) is/are subject to change based on patients health status, clinical progression and re- assessment by fellow clinical providers in the ED. Further treatment and workup at subsequent clinical providers discretion. Patient/guardian urged not to elope from the ED as their condition may be serious if not clinically assessed and managed. Patient is a 49-year-old -[place] male with past medical history of kidney stones who is presenting with left flank pain for the past 5 hours. Patient also said episodes of nausea and vomiting. Pain is 9 out of 10 in severity. Initial orders include: CT of abdomen and pelvis without contrast been ordered as well as urinalysis basic laboratory studies.
[2019-10-05 05:52] LABS: Basophils # (Auto) 0.1 K/mm3 (0.0-0.1); Basophils % (Auto) 0.4 % (0.0-1.8); Eosinophils # (Auto) 0.1 K/mm3 (0.0-0.4); Eosinophils % (Auto) 0.8 % (0.0-4.3); Hematocrit 44.5 % (35.5-45.6); Lymphocytes # (Auto) 1.1 K/mm3 (1.2-5.4); Lymphocytes % (Auto) 6.5 % (13.4-35.0); Mean Corpuscular HGB Conc 34 % (32-34); Mean Corpuscular Volume 93 fl (84-94); Monocytes # (Auto) 0.7 K/mm3 (0.0-0.8); Monocytes % (Auto) 4.2 % (0.0-7.3); Platelet Count 305 K/mm3 (140-440); Red Blood Count 4.78 M/mm3 (3.65-5.03); Red Cell Distribution Width 14.2 % (13.2-15.2)
[2019-10-05 06:05] LABS: Albumin 4.2 g/dL (3.9-5); Calcium 9.6 mg/dL (8.4-10.2)
--- NOTE | 2019-10-05 06:26 | Cat Scan Report ---
CT ABDOMEN AND PELVIS WITHOUT CONTRAST INDICATION / CLINICAL INFORMATION: left flank pain. Abdominal pain for one day. Previous history of renal stones. TECHNIQUE: Axial CT images were obtained through the abdomen and pelvis without IV contrast. All CT scans at [facility] location are performed using CT dose reduction for ALARA by means of automated exposure control. COMPARISON: CT dated 06/10/18 FINDINGS: LOWER CHEST: No significant abnormality. LIVER: Liver is enlarged and hypodense characteristic of fatty infiltration. GALLBLADDER: No significant abnormality. BILE DUCTS: No significant abnormality. PANCREAS: No significant abnormality. SPLEEN: No significant abnormality. ADRENALS: No significant abnormality. RIGHT KIDNEY and URETER: Nonobstructing stones in the lower pole, unchanged. No ureteral stone or hyd ronephrosis. LEFT KIDNEY and URETER: Nonobstructing stones in the lower pole, unchanged. No ureteral stone or hydr onephrosis. STOMACH and SMALL BOWEL: No significant abnormality. COLON: No significant abnormality. APPENDIX: No significant abnormality. PERITONEUM: No free fluid. No free air. No fluid collection. LYMPH NODES: No significant adenopathy. AORTA and ARTERIES: No significant abnormality. IVC and VEINS: No significant abnormality. URINARY BLADDER: No stones. No acute findings. REPRODUCTIVE ORGANS: Prostate is mildly enlarged but stable. ADDITIONAL FINDINGS: None. SKELETAL SYSTEM: No significant abnormality. IMPRESSION: 1. Bilateral nephrolithiasis but no ureteral stone or hydronephrosis. 2. No inflammatory process or bowel obstruction. Signer Name: Roger Ortiz MD Signed: 10/05/2019 6:22 AM Workstation Name: [email or web address]
--- NOTE | 2019-10-05 06:55 | Emergency Department Report ---
ED Abdominal Pain HPI - General Chief Complaint: Abdominal Pain Stated Complaint: LT FLANK PAIN Time Seen by Provider: 10/05/19 05:32 Source: patient, EMS Mode of arrival: Stretcher Limitations: No Limitations - History of Present Illness MD Complaint: abdominal pain -: Gradual, days(s) (1. Reports symptoms last night while he was watching the football game.) Location: [facility] Radiation: none Migration to: no migration Severity: moderate Severity scale (0 -10): 4 Quality: cramping Consistency: intermittent Improves With: nothing Worsens With: nothing Context: other (Reports hx of kidney stones. Reports symptoms last night felt similar to past attacks of kidney stones) Associated Symptoms: nausea, vomiting. denies: diarrhea, fever, chills, constipation, dysuria, hematemesis, hematochezia, melena, hematuria, anorexia, syncope - Related Data Previous Rx's Medication Instructions Recorded Last Taken Type Aspirin [Aspirin BABY CHEW TAB] 81 mg PO QDAY #30 tab.chew 06/21/18 Unknown Rx ISOSORBIDE MONOnitrate [Imdur ER] 30 mg PO QDAY #30 tablet 06/21/18 Unknown Rx Famotidine [Pepcid] 20 mg PO BID #14 tablet 11/22/18 Unknown Rx cloNIDine [Catapres] 0.2 mg PO BID #60 tablet 11/22/18 Unknown Rx diphenhydrAMINE [Benadryl CAP] 25 mg PO Q8HR #10 capsule 11/22/18 Unknown Rx predniSONE [Deltasone] 10 mg PO QDAY #3 tab 11/22/18 Unknown Rx Insulin NPH/Regular [NovoLIN 70/30] 20 unit SUB-Q BIDDIAB #1 vial 11/23/18 Unknown Rx amLODIPine 5 mg PO QDAY #30 tablet 11/23/18 Unknown Rx Phenazopyridine [Pyridium] 100 mg PO TID #6 tab 10/05/19 Unknown Rx Allergies Allergy/AdvReac Type Severity Reaction Status Date / Time hydralazine [Hydralazine] Allergy Shortness Verified 11/20/18 11:04 of Breath ED Review of Systems ROS: Stated complaint: LT FLANK PAIN Other details as noted in HPI Other: GENERAL: No weight change, fatigue, fever, chills, or night sweats SKIN: No changes in skin or hair, no itching, no rashes, no jaundice HEAD: No trauma EYES: No blurriness, tearing, itching, acute visual loss, conjunctival discoloration, or scleral icterus EARS: No hearing loss, tinnitus, vertigo, or earache NOSE: No rhinorrhea, stuffiness, sneezing, itching, or epistaxis MOUTH: No bleeding gums, hoarseness, sore throat, or swelling CARDIAC: No new murmur, chest pain, palpitations, dyspnea on exertion, orthopnea, PND, or edema RESPIRATORY: No shortness of breath, wheeze, cough, sputum production, hemoptysis GI: Abdominal pain, nausea, vomiting. Denies dysphagia, diarrhea, constipation, hematemesis, melena, hematochezia URINARY: No frequency, urgency, polyuria, dysuria, hematuria, or incontinence MUSCULOSKELETAL: No muscle weakness, joint stiffness, decrease in range of mo tion, redness, swelling NEUROLOGIC: No headache, syncope, loss of sensation, numbness, tingling, josse mors, weakness, paralysis, seizures HEMATOLOGIC: No anemia, easy bruising, bleeding, petechiae, or purpura ENDOCRINE: No hot or cold intolerance, sweating, polyuria, polydipsia or, polyphagia no thyroid problems PSYCHIATRIC: No change in mood, no anxiety, no depression ED Past Medical Hx - Past Medical History Previous Medical History?: Yes Hx Hypertension: Yes Hx Congestive Heart Failure: Yes Hx Diabetes: Yes Hx Asthma: No Hx COPD: No Hx HIV: No - Surgical History Past Surgical History?: No - Social History Smoking Status: Never Smoker Substance Use Type: None - Medications Home Medications: Home Medications Medication Instructions Recorded Confirmed Last Taken Type Aspirin [Aspirin BABY CHEW TAB] 81 mg PO QDAY #30 tab.chew 06/21/18 11/20/18 Unknown Rx ISOSORBIDE MONOnitrate [Imdur ER] 30 mg PO QDAY #30 tablet 06/21/18 11/20/18 Unknown Rx Famotidine [Pepcid] 20 mg PO BID #14 tablet 11/22/18 Unknown Rx cloNIDine [Catapres] 0.2 mg PO BID #60 tablet 11/22/18 Unknown Rx diphenhydrAMINE [Benadryl CAP] 25 mg PO Q8HR #10 capsule 11/22/18 Unknown Rx predniSONE [Deltasone] 10 mg PO QDAY #3 tab 11/22/18 Unknown Rx Insulin NPH/Regular [NovoLIN 70/30] 20 unit SUB-Q BIDDIAB #1 vial 11/23/18 Unknown Rx amLODIPine 5 mg PO QDAY #30 tablet 11/23/18 Unknown Rx Phenazopyridine [Pyridium] 100 mg PO TID #6 tab 10/05/19 Unknown Rx ED Physical Exam - General Limitations: No Limitations - Other Other exam information: GENERAL: Patient in no acute distress HEAD: Normocephalic, atraumatic EYES: PERRLA, EOM intact, no scleral icterus, no conjunctival hemorrhage, visual hoover and acuity wnl NOSE: No tenderness, discharge, sinus tenderness MOUTH: No erythema, bleeding, exudate HEART: Regular rate and rhythm, no murmur, S1-S2 are auscultated, no edema, pulses are symmetric LUNGS: No respiratory distress. Bilateral breath sounds, No tachypnea, No retractions, No wheezing, rales, rhonchi ABDOMEN: Normal bowel sounds, abdomen soft, no tenderness, no rebound, no guarding, no distention, no masses, no CVA tenderness MUSCULOSKELETAL: Normal joint range of motion, no redness, no swelling, no te nderness NEUROLOGIC: GCS 15, Alert and Oriented x3, Cranial nerves intact, normal sensation, normal strength, no cerebellar deficit, NIHSS 0 SKIN: Skin is warm and dry, no wounds, no rashes ED Course Vital Signs 10/05/19 10/05/19 05:28 05:30 Temperature 98.4 F Pulse Rate 90 Respiratory 17 Rate Blood Pressure 156/90 Blood Pressure 194/99 [Left] O2 Sat by Pulse 96 98 Oximetry ED Medical Decision Making - Lab Data Result diagrams: 10/05/19 05:30 10/05/19 05:30 Laboratory Results - last 24 hr 10/05/19 10/05/19 05:30 05:30 WBC 17.7 H RBC 4.78 Hgb 15.0 Hct 44.5 MCV 93 MCH 31 MCHC 34 RDW 14.2 Plt Count 305 Lymph % (Auto) 6.5 L [place] % (Auto) 4.2 Eos % (Auto) 0.8 Baso % (Auto) 0.4 Lymph # 1.1 L [place] # 0.7 Eos # 0.1 Baso # 0.1 Seg Neutrophils % 88.1 H Seg Neutrophils # 15.6 H Sodium 139 Potassium 3.8 Chloride 98.2 Carbon Dioxide 24 Anion Gap 21 BUN 26 H Creatinine 2.8 H Estimated GFR 30 BUN/Creatinine Ratio 9 Glucose 231 H Calcium 9.6 Total Bilirubin 0.40 AST 17 ALT 11 Alkaline Phosphatase 66 Total Protein 8.1 Albumin 4.2 Albumin/Globulin Ratio 1.1 - Radiology Data Radiology results: report reviewed - Medical Decision Making Patient comfortable. Reports symptom improvement. Updated with results. Plan discharge with outpatient follow up. Return if any worsening. Critical care attestation.: If time is entered above; I have spent that time in minutes in the direct care of this critically ill patient, excluding procedure time. ED Disposition Clinical Impression: Renal colic on left side Abdominal pain Qualifiers: Abdominal location: unspecified location Qualified Code(s): R10.9 - Unspecified abdominal pain Disposition: TO HOME OR SELFCARE Is pt being admited?: No Condition: Stable Instructions: Renal Colic (ED), Abdominal Pain (ED) Prescriptions: Phenazopyridine [Pyridium] 100 mg PO TID #6 tab Referrals: WENDIE LANE MD [Staff Physician] - 2-3 Days DINA TANNER DO [Staff Physician] - 2-3 Days Time of Disposition: 06:55
[2019-10-05 07:17] VITALS: BP 157/81
== END 2019-10-05 07:30 | disposition home or self-care (01) ==
LOC: ED 05:16
DX: N23 Unspecified renal colic (principal); I11.0 Hypertensive heart disease with heart failure; I50.9 Heart failure, unspecified; E11.9 Type 2 diabetes mellitus without complications; Z79.4 Long term (current) use of insulin; Z79.899 Other long term (current) drug therapy; Z88.1 Allergy status to other antibiotic agents
CPT/HCPCS: 36415; 74176; 80053; 85025; 96361; 96374; 96375; 99284; J1885; J2270; J2405; J7030

== ENCOUNTER 2021-05-16 18:54 | Emergency (ER) | payer MEDICAID, OTHER ==
[2021-05-16] MEDS ORDERED: FAMOTIDINE 20 MG TAB PO ONE (19:43)
[2021-05-16] MEDS ORDERED: ASPIRIN 325 MG TAB PO ONE (19:43)
[2021-05-16] MEDS ORDERED: ONDANSETRON 4 MG ODT TAB PO ONE (19:43)
--- NOTE | 2021-05-16 19:46 | Event Note ---
ED Screening Note ED Screening Note: Patient is a 50-year-old male presents emergency room complaints of left-sided abdominal pain that began 3 days ago. Has associated nausea and vomiting He denies any diarrhea, fever, cough, shortness of breath, chest pain, hematochezia, melena, hematemesis He states he had a normal bowel movement yesterday Past medical history of diabetes and hypertension He has not taken his blood pressure medication in a week due to running out This initial assessment/diagnostic orders/clinical plan/treatment(s) is/are subject to change based on patients health status, clinical progression and re- assessment by fellow clinical providers in the ED. Further treatment and workup at subsequent clinical providers discretion. Patient/guardian urged not to elope from the ED as their condition may be serious if not clinically assessed and managed. Initial orders include: Labs, urine
[2021-05-16 20:01] LABS: Basophils # (Auto) 0.1 K/mm3 (0.0-0.1); Basophils % (Auto) 0.6 % (0.0-1.8); Eosinophils # (Auto) 0.3 K/mm3 (0.0-0.4); Eosinophils % (Auto) 2.6 % (0.0-4.3); Hemoglobin 16.5 gm/dl (11.8-15.2); Lymphocytes # (Auto) 1.5 K/mm3 (1.2-5.4); Lymphocytes % (Auto) 11.8 % (13.4-35.0); Monocytes # (Auto) 0.6 K/mm3 (0.0-0.8); Monocytes % (Auto) 4.5 % (0.0-7.3)
[2021-05-16 20:12] LABS: Hematocrit 47.4 % (35.5-45.6); Mean Corpuscular HGB Conc 35 % (32-34); Mean Corpuscular Volume 92 fl (84-94); Platelet Count 319 K/mm3 (140-440); Red Blood Count 5.16 M/mm3 (3.65-5.03); Red Cell Distribution Width 13.9 % (13.2-15.2)
[2021-05-16 20:17] LABS: Albumin 3.5 g/dL (3.9-5); Calcium 8.9 mg/dL (8.4-10.2)
[2021-05-16 20:18] LABS: Bacteria,Urine 1+ /HPF (Negative); Bilirubin,Urine NEG (Negative); Blood,Urine MOD (Negative); Color,Urine Yellow (Yellow); Hyaline Casts,Urine 3 /LPF; Mucus,Urine FEW /HPF; Sperm,Urine FEW /HPF (NP); Urobilinogen,Urine < 2.0 mg/dL (<2.0)
[2021-05-16 20:19] LABS: Protein,Urine >500 mg/dL (Negative); RBC,Urine > 182.0 /HPF (0.0-6.0)
--- NOTE | 2021-05-16 20:22 | XRay Report ---
XR abd series (3 views) w cxr 1V INDICATION / CLINICAL INFORMATION: abd pain, HTN urgency COMPARISON: CT from 10/05/2019. FINDINGS: Lungs are clear. No pleural effusion or pneumothorax. Bilateral double-J ureteral stents project in e xpected position. No calcification is seen overlying either renal shadow or along the course of eithe r ureter. Bowel gas pattern is nonobstructive. Moderate colonic stool burden. No free air. No acute o sseous findings. IMPRESSION: 1. No acute radiographic abnormality of the chest or abdomen. 2. Moderate colonic stool burden, may reflect constipation. Signer Name: Landon Fuller MD Signed: 05/16/2021 8:18 PM Workstation Name: [id number]
[2021-05-16 20:28] LABS: Chol/HDL Ratio 3.83 %
--- NOTE | 2021-05-16 21:55 | Cat Scan Report ---
CT ABDOMEN AND PELVIS WITHOUT CONTRAST INDICATION / CLINICAL INFORMATION: left sided abd pain, n/v, hematuria. TECHNIQUE: Axial CT images were obtained through the abdomen and pelvis without IV contrast. All CT scans at this location are performed using CT dose reduction for ALARA by means of automated exposure control. COMPARISON: CT from 10/05/2019 FINDINGS: FINDINGS: LOWER CHEST: No significant abnormality LIVER: Hepatic steatosis. GALLBLADDER/BILIARY TREE: No significant abnormality PANCREAS: No significant abnormality SPLEEN: No significant abnormality ADRENALS: No significant abnormality KIDNEYS / URETER: Bilateral double-J ureteral stents are present. There is no hydronephrosis. No disc rete ureteral calculus is identified along the course of either ureter. There is a 6 mm lower pole le ft renal stone. URINARY BLADDER: No significant abnormality REPRODUCTIVE ORGANS: Prostate is enlarged. STOMACH / BOWEL: No significant abnormality. The appendix is normal in caliber. LYMPH NODES: No significant adenopathy. VASCULATURE: No significant abnormality. OTHER: No free air, free fluid, or focal fluid collection is identified. SKELETAL SYSTEM: No acute osseous findings. IMPRESSION: 1. No acute abnormality of the abdomen or pelvis. 2. Bilateral double-J ureteral stents are in satisfactory position. No hydronephrosis. No discrete ur eteral calculus along the course of either ureter. 3. 6 mm lower pole left renal stone. 4. Other chronic and incidental findings as above. Signer Name: Landon Fuller MD Signed: 05/16/2021 9:51 PM Workstation Name: [id number]
--- NOTE | 2021-05-16 22:46 | Emergency Department Report ---
HPI - General Chief Complaint: High BP Time Seen by Provider: 05/16/21 19:44 - HPI HPI: This is a 50-year-old -[place] male presents to the emergency department via EMS from home with complaint of left-sided abdominal pain and nausea that is been going on for the past few days. The patient says that he was having sharp left middle abdominal pains, along with nausea, and the patient would eventually make himself vomit. After vomiting the pain would improve for a short while. Eventually today the patient says "I had had enough" and called EMS. He says "what ever they gave me in the ambulance fixed me right up." I am not sure what medication was given, but at the time of my examination the patient is asymptomatic. Also, when EMS picked the patient up, his initial vitals showed significant hypertension. Patient says that he is on amlodipine 10 mg daily but says "it just does not seem to work." He denies any chest pain, back pain, lower extremity swelling, fever, constipation, diarrhea. Patient has a past medical history of hypertension, insulin-dependent diabetes, chronic kidney disease not on hemodialysis, CHF. No recent travel or sick contacts at home. He does not have a primary care physician. His etl application developer is Dr. Young. He denies any tobacco or illicit drug use. ED Past Medical Hx - Past Medical History Hx Hypertension: Yes Hx Congestive Heart Failure: Yes Hx Diabetes: Yes Hx Asthma: No Hx COPD: No Hx HIV: No - Surgical History Past Surgical History?: No - Social History Smoking Status: Unknown if ever smoked Substance Use Type: None - Medications Home Medications: Home Medications Medication Instructions Recorded Confirmed Last Taken Type Aspirin [Aspirin BABY CHEW TAB] 81 mg PO QDAY #30 tab.chew 06/21/18 11/20/18 Unknown Rx ISOSORBIDE MONOnitrate [Imdur ER] 30 mg PO QDAY #30 tablet 06/21/18 11/20/18 Unknown Rx Famotidine [Pepcid] 20 mg PO BID #14 tablet 11/22/18 Unknown Rx cloNIDine [Catapres] 0.2 mg PO BID #60 tablet 11/22/18 Unknown Rx diphenhydrAMINE [Benadryl CAP] 25 mg PO Q8HR #10 capsule 11/22/18 Unknown Rx predniSONE 10 mg PO QDAY #3 tab 11/22/18 Unknown Rx Insulin NPH/Regular [NovoLIN 70/30] 20 unit SUB-Q BIDDIAB #1 vial 11/23/18 Unknown Rx amLODIPine 5 mg PO QDAY #30 tablet 11/23/18 Unknown Rx Phenazopyridine [Pyridium] 100 mg PO TID #6 tab 10/05/19 Unknown Rx Nitrofurantoin [place]/M-Cryst 100 mg PO Q12HR #10 capsule 05/16/21 Unknown Rx [Macrobid CAP] cloNIDine [Catapres] 0.1 mg PO BID #40 tablet 05/16/21 Unknown Rx amLODIPine 10 mg PO DAILY #30 tab 05/17/21 Unknown Rx ED Review of Systems ROS: Stated complaint: ABD PAIN Other details as noted in HPI Comment: All other systems reviewed and negative Constitutional: denies: chills, fever Eyes: denies: eye pain, vision change ENT: denies: ear pain, throat pain Respiratory: denies: cough, shortness of breath Cardiovascular: denies: chest pain, palpitations Gastrointestinal: abdominal pain (resolved), nausea. denies: vomiting Genitourinary: denies: dysuria, discharge Musculoskeletal: denies: back pain, arthralgia Skin: denies: rash, lesions Neurological: denies: headache, weakness Physical Exam - Physical Exam Vital Signs: Vital Signs 05/16/21 19:39 Temperature 98.9 F Pulse Rate 82 Respiratory 20 Rate Blood Pressure 187/116 O2 Sat by Pulse 97 Oximetry Physical Exam: GENERAL: The patient is well-developed well-nourished. HENT: Normocephalic. Atraumatic. Patient has moist mucous membranes. EYES: Extraocular motions are intact. NECK: Supple. Trachea is midline. CHEST/LUNGS: Clear to auscultation. There is no respiratory distress noted. HEART/CARDIOVASCULAR: Regular. There is no tachycardia. There is no murmur. ABDOMEN: Abdomen is soft, nontender. Patient has normal bowel sounds. There is no abdominal distention. SKIN: Skin is warm and dry. NEURO: The patient is awake, alert, and oriented. The patient is cooperative. The patient has no focal neurologic deficits. Normal speech. MUSCULOSKELETAL: There is no tenderness or deformity. There is no limitation range of motion. ED Course Vital Signs 05/16/21 19:39 Temperature 98.9 F Pulse Rate 82 Respiratory 20 Rate Blood Pressure 187/116 O2 Sat by Pulse 97 Oximetry ED Medical Decision Making - Lab Data Result diagrams: 05/16/21 19:46 05/16/21 19:46 Lab Results 05/16/21 05/16/21 05/16/21 Range/Units 19:46 19:46 19:53 WBC 12.8 H (4.5-11.0) K/mm3 RBC 5.16 H (3.65-5.03) M/mm3 Hgb 16.5 H (11.8-15.2) gm/dl Hct 47.4 H (35.5-45.6) % MCV 92 (84-94) fl MCH 32 (28-32) pg MCHC 35 H (32-34) % RDW 13.9 (13.2-15.2) % Plt Count 319 (140-440) K/mm3 Lymph % (Auto) 11.8 L (13.4-35.0) % [place] % (Auto) 4.5 (0.0-7.3) % Eos % (Auto) 2.6 (0.0-4.3) % Baso % (Auto) 0.6 (0.0-1.8) % Lymph # (Auto) 1.5 (1.2-5.4) K/mm3 [place] # (Auto) 0.6 (0.0-0.8) K/mm3 Eos # (Auto) 0.3 (0.0-0.4) K/mm3 Baso # (Auto) 0.1 (0.0-0.1) K/mm3 Seg Neutrophils % 80.5 H (40.0-70.0) % Seg Neutrophils # 10.3 H (1.8-7.7) K/mm3 Sodium 139 (137-145) mmol/L Potassium 3.2 L (3.6-5.0) mmol/L Chloride 100.7 (98-107) mmol/L Carbon Dioxide 27 (22-30) mmol/L Anion Gap 15 mmol/L BUN 21 H (9-20) mg/dL Creatinine 4.7 H (0.8-1.3) mg/dL Estimated GFR 16 ml/min BUN/Creatinine Ratio 4 % Glucose 125 H (75-100) mg/dL Calcium 8.9 (8.4-10.2) mg/dL Total Bilirubin 0.60 (0.1-1.2) mg/dL AST 13 (5-40) units/L ALT 6 L (7-56) units/L Alkaline Phosphatase 74 (35-129) units/L Troponin T 0.053 H (0.00-0.029) ng/mL Total Protein 6.7 (6.3-8.2) g/dL Albumin 3.5 L (3.9-5) g/dL Albumin/Globulin Ratio 1.1 % Triglycerides 101 (2-149) mg/dL Cholesterol 280 H (50-199) mg/dL LDL Cholesterol Direct 213 H (50-130) mg/dL HDL Cholesterol 73 H (40-59) mg/dL Cholesterol/HDL Ratio 3.83 % Lipase 29 (13-60) units/L Urine Color (Yellow) Urine Turbidity (Clear) Urine pH (5.0-7.0) Ur Specific Pool (1.003-1.030) Urine Protein (Negative) mg/dL Urine Glucose (UA) (Negative) mg/dL Urine Ketones (Negative) mg/dL Urine Blood (Negative) Urine Nitrite (Negative) Urine Bilirubin (Negative) Urine Urobilinogen (<2.0) mg/dL Ur Leukocyte Esterase (Negative) Urine WBC (Auto) (0.0-6.0) /HPF Urine RBC (Auto) (0.0-6.0) /HPF Urine Bacteria (Auto) (Negative) /HPF Hyaline Casts /LPF Urine Mucus /HPF Urine Yeast (Budding) /HPF Urine Sperm (WOODYARD CRANE OPERATOR) /HPF 05/16/21 05/16/21 Range/Units 19:59 22:50 WBC (4.5-11.0) K/mm3 RBC (3.65-5.03) M/mm3 Hgb (11.8-15.2) gm/dl Hct (35.5-45.6) % MCV (84-94) fl MCH (28-32) pg MCHC (32-34) % RDW (13.2-15.2) % Plt Count (140-440) K/mm3 Lymph % (Auto) (13.4-35.0) % [place] % (Auto) (0.0-7.3) % Eos % (Auto) (0.0-4.3) % Baso % (Auto) (0.0-1.8) % Lymph # (Auto) (1.2-5.4) K/mm3 [place] # (Auto) (0.0-0.8) K/mm3 Eos # (Auto) (0.0-0.4) K/mm3 Baso # (Auto) (0.0-0.1) K/mm3 Seg Neutrophils % (40.0-70.0) % Seg Neutrophils # (1.8-7.7) K/mm3 Sodium (137-145) mmol/L Potassium (3.6-5.0) mmol/L Chloride (98-107) mmol/L Carbon Dioxide (22-30) mmol/L Anion Gap mmol/L BUN (9-20) mg/dL Creatinine (0.8-1.3) mg/dL Estimated GFR ml/min BUN/Creatinine Ratio % Glucose (75-100) mg/dL Calcium (8.4-10.2) mg/dL Total Bilirubin (0.1-1.2) mg/dL AST (5-40) units/L ALT (7-56) units/L Alkaline Phosphatase (35-129) units/L Troponin T 0.048 H (0.00-0.029) ng/mL Total Protein (6.3-8.2) g/dL Albumin (3.9-5) g/dL Albumin/Globulin Ratio % Triglycerides (2-149) mg/dL Cholesterol (50-199) mg/dL LDL Cholesterol Direct (50-130) mg/dL HDL Cholesterol (40-59) mg/dL Cholesterol/HDL Ratio % Lipase (13-60) units/L Urine Color Yellow (Yellow) Urine Turbidity Slightly-cloudy (Clear) Urine pH 6.0 (5.0-7.0) Ur Specific Pool 1.018 (1.003-1.030) Urine Protein >500 (Negative) mg/dL Urine Glucose (UA) 50 (Negative) mg/dL Urine Ketones Neg (Negative) mg/dL Urine Blood Mod (Negative) Urine Nitrite Neg (Negative) Urine Bilirubin Neg (Negative) Urine Urobilinogen < 2.0 (<2.0) mg/dL Ur Leukocyte Esterase Neg (Negative) Urine WBC (Auto) 14.0 H (0.0-6.0) /HPF Urine RBC (Auto) > 182.0 (0.0-6.0) /HPF Urine Bacteria (Auto) 1+ (Negative) /HPF Hyaline Casts 3 /LPF Urine Mucus Few /HPF Urine Yeast (Budding) 1+ /HPF Urine Sperm Few (WOODYARD CRANE OPERATOR) /HPF - EKG Data -: EKG Interpreted by Me EKG shows normal: sinus rhythm, axis (Left axis deviation), intervals, QRS complexes (Q waves to the anteroseptal and inferior leads), ST-T waves (T wave versions to the lateral leads V5 and V6) Rate: normal - EKG Data When compared to previous EKG there are: changes noted (Only change is T wave inversions to the lateral leads V5 and V6 from 08/02/2019) Interpretation: other (Sinus rhythm at 64 bpm, left axis deviation, Q waves to the anteroseptal and inferior leads, T wave inversions to the lateral leads V5 and V6) - Radiology Data Radiology results: report reviewed, image reviewed interpreted by me: Abdominal x-ray shows nonspecific nonobstructive bowel gas. Increased stool volume. Chest x-ray does not show any acute process. There are no pleural effusions, obvious pneumonia and there is no pneumothorax. CT ABDOMEN AND PELVIS WITHOUT CONTRAST INDICATION / CLINICAL INFORMATION: left sided abd pain, n/v, hematuria. TECHNIQUE: Axial CT images were obtained through the abdomen and pelvis without IV contrast. All CT scans at this location are performed using CT dose reduction for ALARA by means of automated exposure control. COMPARISON: CT from 10/05/2019 FINDINGS: FINDINGS: LOWER CHEST: No significant abnormality LIVER: Hepatic steatosis. GALLBLADDER/BILIARY TREE: No significant abnormality PANCREAS: No significant abnormality SPLEEN: No significant abnormality ADRENALS: No significant abnormality KIDNEYS / URETER: Bilateral double-J ureteral stents are present. There is no hydronephrosis. No discrete ureteral calculus is identified along the course of either ureter. There is a 6 mm lower pole left renal stone. URINARY BLADDER: No significant abnormality REPRODUCTIVE ORGANS: Prostate is enlarged. STOMACH / BOWEL: No significant abnormality. The appendix is normal in caliber. LYMPH NODES: No significant adenopathy. VASCULATURE: No significant abnormality. OTHER: No free air, free fluid, or focal fluid collection is identified. SKELETAL SYSTEM: No acute osseous findings. IMPRESSION: 1. No acute abnormality of the abdomen or pelvis. 2. Bilateral double-J ureteral stents are in satisfactory position. No hydronephrosis. No discrete ureteral calculus along the course of either ureter. 3. 6 mm lower pole left renal stone. 4. Other chronic and incidental findings as above. - Medical Decision Making This patient presented to the emergency department with a complaint of a few days of abdominal pain and some nausea with occasional self-inflicted vomiting. However, he received some unknown medication with EMS that initially resolved his symptoms. The patient had his work-up started prior to my shift starting. The patient's labs shows mild hypokalemia with a potassium of 3.2, renal insufficiency with a GFR of 16, and a slightly elevated troponin level. The initial troponin was ordered through triage but the patient has denied any chest pain to me, back pain, shortness of breath and his abdominal pain is middle to lower quadrant. The patient has a history of chronic kidney disease. It has been a few years since he has been in our system so I do not know if this is acute on chronic or what his regular GFR is, but he follows with Dr. Young. I believe that the slightly elevated troponin level is secondary to his chronic renal insufficiency. An EKG was done that does not have any morphology consistent with ST elevation myocardial infarction. A second troponin was later drawn and it is also slightly elevated but trending downwards. The patient's urinalysis shows a very mild urinary tract infection, but there is also significant hematuria. The patient had a CT scan of the abdomen and pelvis without contrast that did not show any acute process in the abdomen or pelvis. There are bilateral ureteral stents seen but no obvious ureteral stones. Initially the patient was going to be discharged but then began complaining of a return of his abdominal pain and nausea. He was given some IV analgesia and eventually was feeling improved and was seen sleeping and/or resting comfortably. It is possible that the patient passed a kidney stone that was not seen on the CT scan and he had residual pain. This would make sense with his history of kidney stones and the hematuria seen on urinalysis. Between the analgesia, and a previous dose of antihypertensive medication, the patient's blood pressure improved. The patient will be discharged home to follow-up with primary care. He was given outpatient referral for urology for the hematuria. He was given a referral for gastroenterology regarding his abdominal pains. I refilled his amlodipine and started him on Catapres. We discussed staying away from foods that are high in salt and caffeinated products, as well as keeping a blood pressure log. The patient will return to the emergency department with any worsening of his symptoms or with any acute distress. Critical Care Time: No Critical care attestation.: If time is entered above; I have spent that time in minutes in the direct care of this critically ill patient, excluding procedure time. ED Disposition Clinical Impression: Uncontrolled hypertension, Hypokalemia Abdominal pain Qualifiers: Abdominal location: unspecified location Qualified Code(s): R10.9 - Unspecified abdominal pain CKD (chronic kidney disease) Qualifiers: Chronic kidney disease stage: stage 4 (severe) Qualified Code(s): N18.4 - Chronic kidney disease, stage 4 (severe) UTI (urinary tract infection) Qualifiers: Urinary tract infection type: acute cystitis Hematuria presence: with hematuria Qualified Code(s): N30.01 - Acute cystitis with hematuria Hematuria Qualifiers: Hematuria type: unspecified type Qualified Code(s): R31.9 - Hematuria, unspecified Disposition: TO HOME OR SELFCARE Is pt being admited?: No Condition: Stable Instructions: Abdominal Pain, Adult, Hypokalemia, Urinary Tract Infection, Adult, Chronic Kidney Disease, Adult, Managing Your Hypertension, Hypertension, Adult, Hematuria, Adult, Hypertension (ED) Additional Instructions: Please follow-up with a primary care physician in the next few days. I have given you a referral for a local primary care physician and a primary care clinic. Please follow-up with your etl application developer. I have given you a referral for a local urologist, Dr. Sanches, to follow-up regarding the blood seen in the urine which is called hematuria. I have also given you a referral for a local acquisition professional, Dr. Carias, who is part of [facility] [place] [facility], to follow up regarding your abdominal pains. Try to stay away from foods that are high in salt and caffeinated products. Keep a blood pressure log. I am starting you on a second blood pressure medication called clonidine/Catapres. This medication is taken twice daily. Return to the emergency department with any worsening of your symptoms, new or concerning symptoms not addressed during this current emergency department visit, or with any acute distress. Prescriptions: amLODIPine 10 mg PO DAILY #30 tab cloNIDine [Catapres] 0.1 mg PO BID #40 tablet Nitrofurantoin [place]/M-Cryst [Macrobid CAP] 100 mg PO Q12HR #10 capsule Referrals: [facility] [Provider Group] - 2-3 Days BULMARO YOUNG MD [Staff Physician] - 2-3 Days WENDIE SANCHES MD [Staff Physician] - 2-3 Days EVONNE CARIAS MD [Staff Physician] - 2-3 Days ROVERTO DREW MD [Staff Physician] - 2-3 Days Time of Disposition: 23:31
[2021-05-16] MEDS ORDERED: POTASSIUM CHLORIDE ER 20 MEQ TAB PO ONE (23:21)
[2021-05-17] MEDS ORDERED: ONDANSETRON 4 MG/2 ML INJ IV ONE (00:12)
[2021-05-17] MEDS ORDERED: MORPHINE 4 MG/1 ML INJ IV ONE (00:12)
[2021-05-17] MEDS ORDERED: HYDROmorphone 1 MG/1 ML INJ IV ONE ×2 (00:44→01:40)
[2021-05-17 01:39] VITALS: BP 155/97
--- NOTE | 2021-05-21 09:40 | Electrocardiograph Report ---
[facility] Test Date: 2021-05-16 Test Time: 22:54:21 Pat Name: HARRSION PIMENTEL Department: Room: Gender: M Public Works Director: GIOVANNI : 1970 Requested By: ISRAEL PIERRE Order Number: [id number] Reading MD: Elvis Werner Measurements Intervals [place] Rate: 64 P: 30 AL: 187 QRS: -40 QRSD: 100 T: -16 QT: 403 QTc: 415 Interpretive Statements Sinus rhythm Probable left atrial enlargement Inferior infarct, old Consider anterior infarct No previous ECG available for comparison Electronically Signed On 05-21-2021 9:40:08 EDT by Elvis Werner
== END 2021-05-17 02:15 | disposition home or self-care (01) ==
LOC: ED 18:54
DX: I13.0 Hypertensive heart and chronic kidney disease with heart failure and stage 1 through stage 4 chronic kidney disease, or unspecified chronic kidney disease (principal); N18.4 Chronic kidney disease, stage 4 (severe); I50.9 Heart failure, unspecified; E11.22 Type 2 diabetes mellitus with diabetic chronic kidney disease; N39.0 Urinary tract infection, site not specified; E87.6 Hypokalemia; R10.9 Unspecified abdominal pain; R31.9 Hematuria, unspecified; Z79.899 Other long term (current) drug therapy; Z88.8 Allergy status to other drugs, medicaments and biological substances
CPT/HCPCS: 36415; 74022; 74176; 80053; 80061; 81001; 83690; 84484; 85025; 87086; 93005; 96374; 96375; 96376; 99285; J1170; J2270; J2405; Q0162

== ENCOUNTER 2021-07-16 12:23 | Outpatient (CLI) | payer OTHER ==
[2021-07-16 13:12] LABS: Mean Corpuscular HGB Conc 36 % (32-34); Mean Corpuscular Volume 92 fl (84-94); Platelet Count 265 K/mm3 (140-440); Red Cell Distribution Width 13.4 % (13.2-15.2)
[2021-07-16 13:15] LABS: Hematocrit 44.2 % (35.5-45.6); Hemoglobin 15.7 gm/dl (11.8-15.2)
[2021-07-16 14:41] LABS: Albumin 3.6 g/dL (3.9-5); Calcium 9.6 mg/dL (8.4-10.2)
== END 2021-07-16 12:24 | disposition home or self-care (01) ==
LOC: LAB 12:23
PROVIDERS: ATTEND Internal Medicine Nephrology
DX: I12.9 Hypertensive chronic kidney disease with stage 1 through stage 4 chronic kidney disease, or unspecified chronic kidney disease (principal); E11.22 Type 2 diabetes mellitus with diabetic chronic kidney disease; N18.30 Chronic kidney disease, stage 3 unspecified; R80.9 Proteinuria, unspecified
CPT/HCPCS: 36415; 80048; 82040; 84100; 85027